=== PATIENT | male | born 1945 | race Caucasian/White ===

== ENCOUNTER 2016-08-03 07:33 | Outpatient (CLI) | payer MEDICARE, OTHER | END 2016-08-03 07:34 | disposition home or self-care (01) | DX: I82.409 Acute embolism and thrombosis of unspecified deep veins of unspecified lower extremity (principal); I48.91 Unspecified atrial fibrillation ==

== ENCOUNTER 2017-01-12 08:07 | Outpatient (CLI) | payer MEDICARE, OTHER | END 2017-01-12 08:08 | disposition home or self-care (01) | LOC: LAB.F 08:07 | PROVIDERS: ATTEND Internal Medicine | DX: I82.409 Acute embolism and thrombosis of unspecified deep veins of unspecified lower extremity (principal) | CPT/HCPCS: 85610 ==

== ENCOUNTER 2017-01-24 09:15 | Outpatient (CLI) | payer MEDICARE, OTHER | END 2017-01-24 09:16 | disposition home or self-care (01) | LOC: LAB.F 09:15 | PROVIDERS: ATTEND Internal Medicine Medical Oncology | DX: I82.409 Acute embolism and thrombosis of unspecified deep veins of unspecified lower extremity (principal) | CPT/HCPCS: 85610 ==

== ENCOUNTER 2017-02-12 08:42 | Outpatient (CLI) | payer MEDICARE, OTHER | END 2017-02-12 08:43 | disposition home or self-care (01) | LOC: LAB.F 08:42 | PROVIDERS: ATTEND Internal Medicine Medical Oncology | DX: I82.409 Acute embolism and thrombosis of unspecified deep veins of unspecified lower extremity (principal) | CPT/HCPCS: 85610 ==

== ENCOUNTER 2017-02-20 11:07 | Outpatient (CLI) | payer MEDICARE, OTHER | END 2017-02-20 11:08 | disposition home or self-care (01) | LOC: LAB.F 11:07 | PROVIDERS: ATTEND Internal Medicine | DX: I82.409 Acute embolism and thrombosis of unspecified deep veins of unspecified lower extremity (principal) | CPT/HCPCS: 85610 ==

== ENCOUNTER 2017-02-28 13:39 | Outpatient (CLI) | payer MEDICARE, OTHER | END 2017-02-28 13:40 | disposition home or self-care (01) | LOC: LAB.F 13:39 | PROVIDERS: ATTEND Pharmacist | DX: I82.409 Acute embolism and thrombosis of unspecified deep veins of unspecified lower extremity (principal); I48.91 Unspecified atrial fibrillation | CPT/HCPCS: 85610 ==

== ENCOUNTER 2017-03-13 10:44 | Outpatient (CLI) | payer MEDICARE, OTHER | END 2017-03-13 10:45 | disposition home or self-care (01) | LOC: LAB.F 10:44 | PROVIDERS: ATTEND Pharmacist | DX: I48.91 Unspecified atrial fibrillation (principal) | CPT/HCPCS: 85610 ==

== ENCOUNTER 2017-03-15 09:05 | Outpatient (CLI) | payer MEDICARE, OTHER | END 2017-03-15 09:06 | disposition home or self-care (01) | LOC: SC 09:05 | PROVIDERS: ATTEND Nurse Practitioner Family | DX: G47.33 Obstructive sleep apnea (adult) (pediatric) (principal) | CPT/HCPCS: 99214; G0463; 99212 ==

== ENCOUNTER 2017-04-18 08:54 | Outpatient (CLI) | payer MEDICARE, OTHER | END 2017-04-18 08:55 | disposition home or self-care (01) | LOC: SC 08:54 | PROVIDERS: ATTEND Nurse Practitioner Family | DX: G47.33 Obstructive sleep apnea (adult) (pediatric) (principal) | CPT/HCPCS: 99214; G0463; 99212 ==

== ENCOUNTER 2017-05-09 01:48 | Outpatient (CLI) | payer MEDICARE, OTHER | END 2017-05-09 01:49 | disposition critical access hospital (66) | LOC: EMS 01:48 | PROVIDERS: ATTEND Surgery | DX: M25.512 Pain in left shoulder (principal); W19.XXXA Unspecified fall, initial encounter; Y92.003 Bedroom of unspecified non-institutional (private) residence as the place of occurrence of the external cause | CPT/HCPCS: A0425; A0429 ==

== ENCOUNTER 2017-05-09 02:10 | Emergency (ER) | payer MEDICARE, OTHER ==
[2017-05-09 02:41] LABS: BASOPHILS # (AUTO) 0.1 10^3/uL (0.0-0.1); BASOPHILS % (AUTO) 0.6 %; EOSINOPHILS # (AUTO) 0.2 10^3/uL (0.0-0.7); EOSINOPHILS % (AUTO) 1.7 %; HCT - HEMATOCRIT 35.8 % (42.0-52.0); HGB - HEMOGLOBIN 12.5 g/dL (14.0-18.0); LYMPHOCYTES # (AUTO) 1.2 10^3/uL (1.5-3.5); LYMPHOCYTES % (AUTO) 11.2 %; MEAN CORPUSCULAR HEMOGLOBIN 33.1 pg (27.0-31.0); MEAN CORPUSCULAR HGB CONC 35.1 g/dL (32.0-36.0); MEAN CORPUSCULAR VOLUME 94.4 fL (80.0-94.0); MEAN PLATELET VOLUME 6.6 fL (7.4-11.4); MONOCYTES # (AUTO) 0.8 10^3/uL (0.0-1.0); MONOCYTES % (AUTO) 7.1 %; NEUTROPHILS # (AUTO) 8.5 10^3/uL (1.5-6.6); NEUTROPHILS % (AUTO) 79.4 %; RED BLOOD COUNT 3.79 10^6/uL (4.70-6.10); RED CELL DISTRIBUTION WIDTH 14.3 % (12.0-15.0); UNCORRECTED WHITE BLOOD COUNT 10.8 x10^3/uL; WHITE BLOOD COUNT 10.8 x10^3/uL (4.8-10.8)
[2017-05-09 02:47] LABS: INR 2.1 (0.8-1.2); PT - PROTHROMBIN TIME 22.7 secs (9.9-12.6)
[2017-05-09 02:51] LABS: ALBUMIN/GLOBULIN RATIO 1.1 (1.0-2.2); BILIRUBIN,TOTAL 0.4 mg/dL (0.2-1.0); CALCIUM 8.8 mg/dL (8.5-10.3); CREATININE 1.1 mg/dL (0.6-1.2); POTASSIUM 3.4 mmol/L (3.5-5.0)
[2017-05-09 02:56] LABS: PARTIAL THROMBOPLASTIN TIME 25.5 secs (24.9-33.3)
--- NOTE | 2017-05-09 03:16 | XRAY Preliminary Report ---
Exam: XR SHOULDER 3 VIEW LT IMPRESSION: 1. Osteopenia. No acute abnormality seen. [facility] SITE ID: [id number]
--- NOTE | 2017-05-09 03:19 | XRAY Report ---
EXAM: LEFT SHOULDER RADIOGRAPHY EXAM DATE: 05/09/2017 03:08 AM. CLINICAL HISTORY: Fall, left shoulder pain. COMPARISON: None. TECHNIQUE: 3 views. FINDINGS: Bones: Osteopenia. No acute fracture seen. Joints: No dislocation. Joint spaces are relatively well preserved for age. Soft tissues: Left-sided power port is noted. IMPRESSION: 1. Osteopenia. No acute abnormality seen. [facility] Referring Provider Line: [phone] SITE ID: [id number]
--- NOTE | 2017-05-09 03:29 | CT Preliminary Report ---
Exam: CT HEAD W/O IMPRESSION: Generalized age-related cortical atrophic changes without evidence of acute intracranial abnormality. [facility] SITE ID: [id number]
--- NOTE | 2017-05-09 03:34 | CT Report ---
EXAM: CT HEAD EXAM DATE: 05/09/2017 03:07 AM. CLINICAL HISTORY: Altered mental status, fall, on anticoagulation. COMPARISON: Brain CT obtained at [facility] on 03/07/2017. TECHNIQUE: Multiaxial CT images were obtained from the foramen magnum to the vertex. IV contrast: Non e. Reformats: Coronal. In accordance with CT protocol optimization, one or more of the following dose reduction techniques w ere utilized for this exam: automated exposure control, adjustment of mA and/or KV based on patient s ize, or use of iterative reconstructive technique. FINDINGS: Parenchyma: No intraparenchymal hemorrhage. No evidence of mass, midline shift, or CT findings of acu te infarction. Valladares-white differentiation is distinct. Mild diffuse chronic microangiopathic white ma tter changes are evident. Extraaxial Spaces: Normal for age. No subdural or epidural collections identified. Ventricles: The ventricles and cortical sulci are moderately enlarged, consistent with age-related ti ssue loss. Sinuses and orbits: Imaged paranasal sinuses, orbits, and mastoids show no significant abnormality. Bones: No evidence of fracture or calvarial defect. IMPRESSION: Generalized age-related cortical atrophic changes without evidence of acute intracranial abnormality. [facility] Referring Provider Line: [phone] SITE ID: [id number]
--- NOTE | 2017-05-09 03:40 | ED Physician Documentation ---
PD HPI Fall - Stated complaint Stated Complaint: FALL - Chief complaint Chief Complaint: Trauma Ext - History obtained from History obtained from: Patient, Family, EMS - History of Present Illness Mechanism of injury: Lost balance Fall distance: Standing position Where injury occurred: Home Timing - onset: How many hours ago (1) Injury(ies) location: Left Uppper Extremity Quality of pain: Aching Associated symptoms: Amnesia Similar symptoms before: Work up / diagnostics, Treatment Recently seen: Not recently seen - Additional information Additional information: Patient is a 71 year old male with a history of dementia, heart failure, Afib and peripheral neuropathy, post toe amputation who is presenting to the emergency department after falling. According to , patient was in bed then she heard a crash and immediately heard the patient yell out. She called ems who found the patient wedged on the floor, near a door and furniture. states that he was acting more confused and the patient is on plavix and coumadin so they brought the patient in for evaluation. Review of Systems Unable to obtain: Dementia PD PAST MEDICAL HISTORY - Past Medical History Past Medical History: Yes Cardiovascular: Hypertension, Atrial fibrillation, Other Neuro: Dementia Endocrine/Autoimmune: Type 2 diabetes GI: None : Benign prostate hypertrophy HEENT: None Other Past Medical History: decreased blood flow to BLE, Hx colorectal CA - Past Surgical History Past Surgical History: Yes General: Colonoscopy, Other Ortho: Other Cardiovascular: Angioplasty - Present Medications Home Medications: Ambulatory Orders Medication Instructions Recorded Confirmed Metoprolol Succinate [Toprol Xl] 100 mg PO DAILY 11/01/12 04/03/17 Warfarin Sodium [Coumadin] 5 mg PO DAILY 11/01/12 04/03/17 Acetaminophen [Pain Relief] 500 mg PO Q4HR PRN 05/02/13 04/03/17 Simvastatin 80 mg PO DAILY 05/02/13 04/03/17 Cholecalciferol (Vitamin D3) 1,000 unit PO DAILY 04/03/17 04/03/17 [Vitamin D3] Digoxin 125 mcg PO DAILY 04/03/17 04/03/17 Furosemide [Lasix] 20 mg PO BID 04/03/17 04/03/17 Losartan [Cozaar] 25 mg PO DAILY 04/03/17 04/03/17 Magnesium Oxide [Mag-Oxide 400 mg PO TID 04/03/17 04/03/17 Magnesium] QUEtiapine [SEROquel] 25 mg PO QPM 04/03/17 04/03/17 Spironolactone 25 mg PO DAILY 04/03/17 04/03/17 Tamsulosin [Flomax] 0.4 mg PO DAILY 04/03/17 04/03/17 - Allergies Allergies/Adverse Reactions: Allergies Allergy/AdvReac Type Severity Reaction Status Date / Time levofloxacin Allergy Unknown Verified 05/09/17 02:58 - Social History Does the pt smoke?: No Smoking Status: Never smoker Does the pt drink ETOH?: No Does the pt have substance abuse?: No - Immunizations Immunizations are current?: Yes - POLST Patient has POLST: No PD ED PE NORMAL - Vitals Vital signs reviewed: Yes - General General: No acute distress, Well developed/nourished - HEENT HEENT: Atraumatic, PERRL, Moist mucous membranes, Pharynx benign - Neck Neck: Supple, no meningeal sign - Respiratory Respiratory: No respiratory distress, Clear bilaterally - Abdomen Abdomen: Soft, Non distended - Back Back: No spinal TTP - Derm Derm: Normal color, Warm and dry, No rash - Extremities Extremities: No deformity - Neuro Eye Opening: Spontaneous Motor: Obeys Commands Verbal: Confused GCS Score: 14 - Psych Psych: Normal mood PD ED PE EXPANDED - Cardiac Cardiac: Irregularly irregular - Respiratory Respiratory: Clear to ausultation marla - Derm Derm: Normal color. No: Rash, Bruising, Laceration(s) - Extremities Extremities: Left shoulder (mild tenderness to palpation) - Neuro Neuro: Confused, Normal motor Results - Vitals Vitals: Vital Signs - 24 hr 05/09/17 05/09/17 05/09/17 02:15 03:13 03:55 Temperature 36.3 C L Heart Rate 89 83 96 Respiratory 18 18 18 Rate Blood Pressure 146/84 H 160/91 H 156/74 H O2 Saturation 100 100 100 Oxygen O2 Source Room air - EKG (time done) 0221 Rate: Rate (enter#) (83) Rhythm: Atrial fibrillation Beyer: Normal Other comments: Other comments (occasional pvc) Compare to prior EKG: Old EKG unavailable - Labs Labs: Laboratory Tests 05/09/17 05/09/17 05/09/17 02:34 02:34 02:34 WBC 10.8 RBC 3.79 L Hgb 12.5 L Hct 35.8 L MCV 94.4 H MCH 33.1 H MCHC 35.1 RDW 14.3 Plt Count 269 MPV 6.6 L Neut # 8.5 H Lymph # 1.2 L Caswell # 0.8 Eos # 0.2 Baso # 0.1 Absolute Nucleated RBC 0.00 Nucleated RBC % 0.0 PT 22.7 H INR 2.1 H APTT 25.5 Sodium 138 Potassium 3.4 L Chloride 101 Carbon Dioxide 28 Anion Gap 9.0 BUN 26 H Creatinine 1.1 Estimated GFR (MDRD) 66 L Glucose 108 H Calcium 8.8 Total Bilirubin 0.4 AST 22 ALT 27 Alkaline Phosphatase 83 Troponin I Total Protein 7.0 Albumin 3.6 Globulin 3.4 Albumin/Globulin Ratio 1.1 Lipase 68 H 05/09/17 02:34 WBC RBC Hgb Hct MCV MCH MCHC RDW Plt Count MPV Neut # Lymph # Caswell # Eos # Baso # Absolute Nucleated RBC Nucleated RBC % PT INR APTT Sodium Potassium Chloride Carbon Dioxide Anion Gap BUN Creatinine Estimated GFR (MDRD) Glucose Calcium Total Bilirubin AST ALT Alkaline Phosphatase Troponin I < 0.04 Total Protein Albumin Globulin Albumin/Globulin Ratio Lipase - Rads (name of study) ct head Radiology: Final report received (no acute intracranial pathology) PD MEDICAL DECISION MAKING - ED course Complexity details: reviewed old records, reviewed results, re-evaluated patient , considered differential, d/w patient, d/w family ED course: Patient was seen and examined at bedside. ekg was performed and showed a-fib. When patient's arrived the story became more clear that there was no syncope and was likely a mechanical fall. Patient's imaging was within normal limits. While patient is a high risk for negative outcomes, patient had appropriate follow up and care. and Patient required no further inpatient work up and was stable for discharge with close, outpatient follow up. Departure - Departure Disposition: 01 Home, Self Care Clinical Impression: Fall Condition: Good Instructions: Falls Risks Prevent Follow-Up: Antoinette Hurst [facility] [Primary Care Provider] - Comments: Your diagnostics today were within normal limits. there is no acute intracranial pathology. the a fib is persistent and there were recurrent pvcs on the monitor so it is important that you follow up with your heart doctor as they might want to move up the pace-maker. You might have more aches and pains over the next few days and can take tylenol as needed for pain. You can return to the emergency department at any time for new, worsening or uncontrollable symptoms. Discharge Date/Time: 05/09/17 04:00
[2017-05-09 04:00] VITALS: BP 156/74
== END 2017-05-09 04:00 | disposition home or self-care (01) ==
LOC: EDUNIT# → ED 02:10 → SUPCPDRO 02:10 → ED 04:00
DX: R41.0 Disorientation, unspecified (principal); F03.90 Unspecified dementia, unspecified severity, without behavioral disturbance, psychotic disturbance, mood disturbance, and anxiety; M25.512 Pain in left shoulder; W06.XXXA Fall from bed, initial encounter; I48.1 Persistent atrial fibrillation; I49.3 Ventricular premature depolarization; E11.42 Type 2 diabetes mellitus with diabetic polyneuropathy; I10 Essential (primary) hypertension; Z91.81 History of falling; Z79.01 Long term (current) use of anticoagulants; Z79.02 Long term (current) use of antithrombotics/antiplatelets; Z89.429 Acquired absence of other toe(s), unspecified side
CPT/HCPCS: 36415; 70450; 80053; 83690; 84484; 85025; 85610; 85730; 93005; 99284

== ENCOUNTER 2017-05-09 16:20 | Outpatient (CLI) | payer MEDICARE, OTHER | END 2017-05-09 16:21 | disposition short-term general hospital (02) | LOC: EMS 16:20 | PROVIDERS: ATTEND Surgery | DX: R07.9 Chest pain, unspecified (principal) | CPT/HCPCS: A0425; A0427 ==

== ENCOUNTER 2017-06-13 08:00 | Outpatient (CLI) | payer MEDICARE, OTHER ==
[2017-06-13 13:26] LABS: BASOPHILS % (AUTO) 0.6 %; EOSINOPHILS # (AUTO) 0.1 10^3/uL (0.0-0.7); EOSINOPHILS % (AUTO) 1.3 %; HCT - HEMATOCRIT 35.4 % (42.0-52.0); HGB - HEMOGLOBIN 12.3 g/dL (14.0-18.0); LYMPHOCYTES # (AUTO) 0.9 10^3/uL (1.5-3.5); LYMPHOCYTES % (AUTO) 10.8 %; MEAN CORPUSCULAR HEMOGLOBIN 33.3 pg (27.0-31.0); MEAN CORPUSCULAR HGB CONC 34.7 g/dL (32.0-36.0); MEAN PLATELET VOLUME 7.5 fL (7.4-11.4); MONOCYTES # (AUTO) 0.8 10^3/uL (0.0-1.0); MONOCYTES % (AUTO) 9.6 %; NEUTROPHILS # (AUTO) 6.7 10^3/uL (1.5-6.6); NEUTROPHILS % (AUTO) 77.7 %; RED BLOOD COUNT 3.69 10^6/uL (4.70-6.10); RED CELL DISTRIBUTION WIDTH 15.1 % (12.0-15.0); UNCORRECTED WHITE BLOOD COUNT 8.7 x10^3/uL; WHITE BLOOD COUNT 8.7 x10^3/uL (4.8-10.8)
[2017-06-13 13:33] LABS: INR 1.6 (0.8-1.2)
[2017-06-13 13:40] LABS: CREATININE 0.9 mg/dL (0.6-1.2)
== END 2017-06-13 23:59 ==
LOC: LAB.R 08:00
PROVIDERS: ATTEND Internal Medicine Infectious Disease
DX: T87.89 Other complications of amputation stump (principal); I50.22 Chronic systolic (congestive) heart failure; I70.209 Unspecified atherosclerosis of native arteries of extremities, unspecified extremity; Z51.81 Encounter for therapeutic drug level monitoring
CPT/HCPCS: 82565; 84460; 85025; 85610; 85651

== ENCOUNTER 2017-06-19 08:00 | Outpatient (CLI) | payer MEDICARE, OTHER ==
[2017-06-19 19:27] LABS: CREATININE 0.9 mg/dL (0.6-1.2); GFR - MDRD 83 (>89)
[2017-06-19 22:48] LABS: BASOPHILS # (AUTO) 0.1 10^3/uL (0.0-0.1); EOSINOPHILS # (AUTO) 0.2 10^3/uL (0.0-0.7); EOSINOPHILS % (AUTO) 1.9 %; HCT - HEMATOCRIT 39.5 % (42.0-52.0); HGB - HEMOGLOBIN 13.1 g/dL (14.0-18.0); LYMPHOCYTES # (AUTO) 1.1 10^3/uL (1.5-3.5); LYMPHOCYTES % (AUTO) 11.1 %; MEAN CORPUSCULAR HEMOGLOBIN 32.5 pg (27.0-31.0); MEAN CORPUSCULAR HGB CONC 33.3 g/dL (32.0-36.0); MEAN CORPUSCULAR VOLUME 97.7 fL (80.0-94.0); MEAN PLATELET VOLUME 8.2 fL (7.4-11.4); MONOCYTES # (AUTO) 0.8 10^3/uL (0.0-1.0); MONOCYTES % (AUTO) 8.2 %; NEUTROPHILS # (AUTO) 7.4 10^3/uL (1.5-6.6); NEUTROPHILS % (AUTO) 77.8 %; RED BLOOD COUNT 4.04 10^6/uL (4.70-6.10); RED CELL DISTRIBUTION WIDTH 14.6 % (12.0-15.0); UNCORRECTED WHITE BLOOD COUNT 9.5 x10^3/uL; WHITE BLOOD COUNT 9.5 x10^3/uL (4.8-10.8)
== END 2017-06-19 08:01 | disposition home or self-care (01) ==
LOC: LAB.R 08:00
PROVIDERS: ATTEND Internal Medicine Infectious Disease
DX: T87.89 Other complications of amputation stump (principal); I50.22 Chronic systolic (congestive) heart failure; I70.209 Unspecified atherosclerosis of native arteries of extremities, unspecified extremity; Z51.81 Encounter for therapeutic drug level monitoring
CPT/HCPCS: 82565; 84460; 85025; 85651

== ENCOUNTER 2017-06-28 08:00 | Outpatient (CLI) | payer MEDICARE, OTHER ==
[2017-06-28 11:24] LABS: BASOPHILS % (AUTO) 0.5 %; EOSINOPHILS # (AUTO) 0.2 10^3/uL (0.0-0.7); EOSINOPHILS % (AUTO) 2.6 %; HGB - HEMOGLOBIN 12.8 g/dL (14.0-18.0); LYMPHOCYTES # (AUTO) 1.1 10^3/uL (1.5-3.5); MEAN CORPUSCULAR HEMOGLOBIN 33.6 pg (27.0-31.0); MEAN PLATELET VOLUME 7.2 fL (7.4-11.4); MONOCYTES # (AUTO) 0.7 10^3/uL (0.0-1.0); MONOCYTES % (AUTO) 7.4 %; NEUTROPHILS # (AUTO) 6.8 10^3/uL (1.5-6.6); NEUTROPHILS % (AUTO) 77.5 %; PLT - PLATELET COUNT 200 10^3/uL (130-450); RED BLOOD COUNT 3.82 10^6/uL (4.70-6.10); RED CELL DISTRIBUTION WIDTH 14.8 % (12.0-15.0); WHITE BLOOD COUNT 8.8 x10^3/uL (4.8-10.8)
[2017-06-28 11:30] LABS: PT - PROTHROMBIN TIME 51.7 secs (9.9-12.6)
[2017-06-28 11:37] LABS: ALT ALANINE AMINOTRANSFERASE < 10 IU/L (10-60); GFR - MDRD 74 (>89)
[2017-06-28 11:42] LABS: INR 4.9 (0.8-1.2)
== END 2017-06-28 08:01 ==
LOC: LAB.R 08:00
PROVIDERS: ATTEND Student in an Organized Health Care Education/Training Program
DX: Z79.01 Long term (current) use of anticoagulants (principal); T87.89 Other complications of amputation stump; I50.22 Chronic systolic (congestive) heart failure; I70.209 Unspecified atherosclerosis of native arteries of extremities, unspecified extremity
CPT/HCPCS: 82565; 84460; 85025; 85610; 85651

== ENCOUNTER 2017-07-05 10:30 | Outpatient (CLI) | payer MEDICARE, OTHER | END 2017-07-05 10:31 | disposition home or self-care (01) | LOC: LAB.F 10:30 | PROVIDERS: ATTEND Pharmacist | DX: I48.91 Unspecified atrial fibrillation (principal) | CPT/HCPCS: 85610 ==

== ENCOUNTER 2017-08-07 08:00 | Outpatient (CLI) | payer MEDICARE, OTHER ==
[2017-08-07 17:54] LABS: INR 4.3 (0.8-1.2); PT - PROTHROMBIN TIME 46.4 secs (9.9-12.6)
== END 2017-08-07 08:01 | disposition home or self-care (01) ==
LOC: LAB.R 08:00
PROVIDERS: ATTEND Internal Medicine
DX: Z79.01 Long term (current) use of anticoagulants (principal)
CPT/HCPCS: 85610

== ENCOUNTER 2017-09-04 08:00 | Outpatient (CLI) | payer MEDICARE, OTHER ==
[2017-09-04 14:46] LABS: INR 4.7 (0.8-1.2)
== END 2017-09-04 08:01 ==
LOC: LAB.R 08:00
PROVIDERS: ATTEND Internal Medicine
DX: I48.91 Unspecified atrial fibrillation (principal)
CPT/HCPCS: 85610

== ENCOUNTER 2017-09-04 17:42 | Outpatient (CLI) | payer MEDICARE, OTHER | END 2017-09-04 17:43 | disposition critical access hospital (66) | LOC: EMS 17:42 | PROVIDERS: ATTEND Surgery | DX: S01.81XA Laceration without foreign body of other part of head, initial encounter (principal); W18.39XA Other fall on same level, initial encounter; W22.8XXA Striking against or struck by other objects, initial encounter; Y92.003 Bedroom of unspecified non-institutional (private) residence as the place of occurrence of the external cause | CPT/HCPCS: A0425; A0429 ==

== ENCOUNTER 2017-09-04 18:04 | Emergency (ER) | payer MEDICARE, OTHER ==
[2017-09-04] MEDS ORDERED: LIDOCAINE 1%-EPI 1:100000 20 ML MDV SUBQ STA (18:28)
--- NOTE | 2017-09-04 18:28 | ED Physician Documentation ---
PD HPI HEAD INJURY - Stated complaint Stated Complaint: GLF - Chief complaint Chief Complaint: Trauma Hd/Nk - History obtained from History obtained from: Patient - History of Present Illness Mechanism of head injury: Fell (he was getting out of wheelchair and fell forward while bent, and struck top of head on edge of dresser. No LOC and is acting okay. 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 No: Intoxicated Similar symptoms before: Has not had sx before Recently seen: Not recently seen Review of Systems Constitutional: denies: Fever, Chills Eyes: denies: Loss of vision, Decreased vision Nose: denies: Rhinorrhea / runny nose, Congestion Throat: denies: Sore throat Cardiac: denies: Chest pain / pressure Respiratory: denies: Cough GI: denies: Abdominal Pain, Nausea, Vomiting, Diarrhea : denies: Dysuria, Frequency Neurologic: reports: Headache. denies: Focal weakness, Numbness, Near syncope Endocrine: reports: Easy bruising / bleeding PD PAST MEDICAL HISTORY - Past Medical History Cardiovascular: Hypertension, Atrial fibrillation, Other Neuro: Dementia Endocrine/Autoimmune: Type 2 diabetes GI: None : Benign prostate hypertrophy HEENT: None - Past Surgical History Past Surgical History: Yes General: Colonoscopy, Other Ortho: Other Cardiovascular: Angioplasty - Present Medications Home Medications: Ambulatory Orders Medication Instructions Recorded Confirmed Metoprolol Succinate [Toprol Xl] 100 mg PO DAILY 11/01/12 04/03/17 Warfarin Sodium [Coumadin] 5 mg PO DAILY 11/01/12 04/03/17 Acetaminophen [Pain Relief] 500 mg PO Q4HR PRN 05/02/13 04/03/17 Simvastatin 80 mg PO DAILY 05/02/13 04/03/17 Cholecalciferol (Vitamin D3) 1,000 unit PO DAILY 04/03/17 04/03/17 [Vitamin D3] Digoxin 125 mcg PO DAILY 04/03/17 04/03/17 Furosemide [Lasix] 20 mg PO BID 04/03/17 04/03/17 Losartan [Cozaar] 25 mg PO DAILY 04/03/17 04/03/17 Magnesium Oxide [Mag-Oxide 400 mg PO TID 04/03/17 04/03/17 Magnesium] QUEtiapine [SEROquel] 25 mg PO QPM 04/03/17 04/03/17 Spironolactone 25 mg PO DAILY 04/03/17 04/03/17 Tamsulosin [Flomax] 0.4 mg PO DAILY 04/03/17 04/03/17 Tramadol HCl 50 mg PO Q6H PRN #20 tablet 09/04/17 - Allergies Allergies/Adverse Reactions: Allergies Allergy/AdvReac Type Severity Reaction Status Date / Time levofloxacin Allergy Unknown Verified 05/09/17 02:58 - Social History Does the pt smoke?: No Smoking Status: Never smoker Does the pt drink ETOH?: No Does the pt have substance abuse?: No - Immunizations Immunizations are current?: Yes - POLST Patient has POLST: No PD ED PE NORMAL - Vitals Vital signs reviewed: Yes - General General: Alert and oriented X 3, Well developed/nourished - HEENT HEENT: PERRL, EOMI, Other (top of scalp with 3 cm lac with clean edges, but the patient's wound is bleeding still so closed with sutures for hemostasis as well. 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 No: Contaminated Anesthesia: Lidocaine 1% with epi Skin layer closure: Nylon, Running, Size #-0 - enter number (4) Other: Patient tolerated well, No complications, Neurovascular intact, Dressing applied, Tetanus UTD Complexity: Simple PD MEDICAL DECISION MAKING - ED course Complexity details: reviewed results, considered differential, d/w patient Departure - Departure Disposition: 01 Home, Self Care Clinical Impression: Anticoagulant long-term use Accidental fall Qualifiers: Encounter type: initial encounter Qualified Code(s): W19.XXXA - Unspecified fall, initial encounter Scalp laceration Qualifiers: Encounter type: initial encounter Qualified Code(s): S01.01XA - Laceration without foreign body of scalp, initial encounter Condition: Stable Record reviewed to determine appropriate education?: Yes Instructions: ED Laceration Scalp Stitch Or Stap Follow-Up: Antoinette Hurst R[facility] [Primary Care Provider] - Prescriptions: Tramadol HCl 50 mg PO Q6H PRN #20 tablet PRN Reason: Pain Comments: It is okay to wash and shower. Clean off the wound twice a day with soap and water, or peroxide and water. Apply some antibiotic ointment to it to keep it moist. Also to watch for signs of infection such as purulence, redness or increasing pain. Return to your primary care or the ER at the specified time for suture removal. Suture removal 8-10 days. Hold your Coumadin tonight. Follow-up with your primary care in the next couple of days for INR recheck. Tylenol or tramadol if needed for pains. Discharge Date/Time: 09/04/17 20:25
[2017-09-04] MEDS ORDERED: ACETAMINOPHEN 325 MG TABLET PO STA (18:51)
[2017-09-04] MEDS ORDERED: traMADol 50 MG TABLET PO STA (18:51)
--- NOTE | 2017-09-04 19:47 | CT Report ---
EXAM: CT HEAD EXAM DATE: 09/04/2017 07:25 PM. CLINICAL HISTORY: Head injury, on coumadin. COMPARISON: 04/29/2017. TECHNIQUE: Multiaxial CT images were obtained from the foramen magnum to the vertex. Reformats: Coron al. IV contrast: None. In accordance with CT protocol optimization, one or more of the following dose reduction techniques w ere utilized for this exam: automated exposure control, adjustment of mA and/or KV based on patient s ize, or use of iterative reconstructive technique. FINDINGS: Parenchyma: No intraparenchymal hemorrhage. No evidence of mass, midline shift, or CT findings of acu te infarction. Valladares-white differentiation is distinct. Diffuse chronic microangiopathic white matter changes are evident, similar to prior exam. Extraaxial Spaces: Normal for age. No subdural or epidural collections identified. Ventricles: The ventricles and cortical sulci are enlarged, consistent with age-related tissue loss. Sinuses and orbits: Imaged paranasal sinuses, orbits, and mastoids show no significant abnormality. Bones: No evidence of fracture or calvarial defect. Other: Right frontal scalp contusion and laceration noted. IMPRESSION: Generalized age-related cortical atrophic changes without evidence of acute intracranial abnormality. [facility] Referring Provider Line: [phone] SITE ID: [id number]
[2017-09-04] MEDS ORDERED: BACITRACIN OINT TOP ONE (20:20)
[2017-09-04 20:27] VITALS: BP 128/73
== END 2017-09-04 20:25 | disposition home or self-care (01) ==
LOC: EDUNIT# → ED 18:04
DX: S01.01XA Laceration without foreign body of scalp, initial encounter (principal); W01.0XXA Fall on same level from slipping, tripping and stumbling without subsequent striking against object, initial encounter; I48.91 Unspecified atrial fibrillation; Z79.01 Long term (current) use of anticoagulants; I10 Essential (primary) hypertension; F03.90 Unspecified dementia, unspecified severity, without behavioral disturbance, psychotic disturbance, mood disturbance, and anxiety; E11.9 Type 2 diabetes mellitus without complications; N40.0 Benign prostatic hyperplasia without lower urinary tract symptoms
CPT/HCPCS: 12002; 70450; 85610; 99283; A9270

== ENCOUNTER 2017-09-21 11:23 | Outpatient (CLI) | payer MEDICARE, OTHER | END 2017-09-21 11:24 | disposition home or self-care (01) | LOC: LAB.F 11:23 | PROVIDERS: ATTEND Pharmacist | DX: I48.91 Unspecified atrial fibrillation (principal) | CPT/HCPCS: 85610 ==

== ENCOUNTER 2017-10-05 10:54 | Outpatient (CLI) | payer MEDICARE, OTHER | END 2017-10-05 10:55 | disposition home or self-care (01) | LOC: LAB.F 10:54 | PROVIDERS: ATTEND Pharmacist | DX: I48.91 Unspecified atrial fibrillation (principal) | CPT/HCPCS: 85610 ==

== ENCOUNTER 2017-10-11 08:00 | Outpatient (CLI) | payer MEDICARE, OTHER | END 2017-10-11 08:01 | disposition home or self-care (01) | LOC: LAB.F 08:00 | PROVIDERS: ATTEND Pharmacist | DX: I48.91 Unspecified atrial fibrillation (principal) | CPT/HCPCS: 85610 ==

== ENCOUNTER 2017-11-15 09:00 | Outpatient (CLI) | payer MEDICARE, OTHER | END 2017-11-15 09:01 | disposition home or self-care (01) | LOC: LAB.F 09:00 | PROVIDERS: ATTEND Pharmacist | DX: I48.91 Unspecified atrial fibrillation (principal) | CPT/HCPCS: 85610 ==

== ENCOUNTER 2018-01-09 06:13 | Emergency (ER) | payer MEDICARE, OTHER ==
--- NOTE | 2018-01-09 06:25 | ED Physician Documentation ---
PD HPI Fall - Stated complaint Stated Complaint: GLF/HEAD LAC - History obtained from History obtained from: Patient, Family - History of Present Illness Fall distance: Sitting position Where injury occurred: Home Timing - onset: Today Injury(ies) location: Head, Right Hand Associated symptoms: No: LOC Similar symptoms before: Work up / diagnostics, Treatment Recently seen: Emergency Dept Review of Systems Ten Systems: 10 systems reviewed and negative Skin: reports: Laceration (s) Musculoskeletal: reports: Extremity pain, Joint pain, Extremity swelling Neurologic: denies: Generalized weakness, Focal weakness PD PAST MEDICAL HISTORY - Past Medical History Cardiovascular: Hypertension, Atrial fibrillation, Other Endocrine/Autoimmune: Type 2 diabetes GI: None : Benign prostate hypertrophy HEENT: None - Past Surgical History Past Surgical History: Yes General: Colonoscopy, Other Ortho: Other Cardiovascular: Angioplasty - Present Medications Home Medications: Ambulatory Orders Medication Instructions Recorded Confirmed Metoprolol Succinate [Toprol Xl] 100 mg PO DAILY 11/01/12 01/09/18 Warfarin Sodium [Coumadin] 5 mg PO DAILY 11/01/12 01/09/18 Acetaminophen [Pain Relief] 500 mg PO Q4HR PRN 05/02/13 01/09/18 Cholecalciferol (Vitamin D3) 1,000 unit PO DAILY 04/03/17 01/09/18 [Vitamin D3] Losartan [Cozaar] 25 mg PO DAILY 04/03/17 01/09/18 Magnesium Oxide [Mag-Oxide 400 mg PO TID 04/03/17 01/09/18 Magnesium] QUEtiapine [SEROquel] 25 mg PO QPM 04/03/17 01/09/18 Spironolactone 25 mg PO DAILY 04/03/17 01/09/18 Tramadol HCl 50 mg PO Q6H PRN #20 tablet 09/04/17 01/09/18 - Allergies Allergies/Adverse Reactions: Allergies Allergy/AdvReac Type Severity Reaction Status Date / Time levofloxacin Allergy Unknown Verified 01/09/18 06:22 - Social History Does the pt smoke?: No Smoking Status: Never smoker Does the pt drink ETOH?: No Does the pt have substance abuse?: No - Immunizations Immunizations are current?: Yes - POLST Patient has POLST: No PD ED PE NORMAL - Vitals Vital signs reviewed: Yes - General General: Alert and oriented X 3 - Neck Neck: No bony TTP - Cardiac Cardiac: RRR - Respiratory Respiratory: No respiratory distress - Neuro Neuro: Alert and oriented X 3, No motor deficit, Normal speech Eye Opening: Spontaneous Motor: Obeys Commands Verbal: Oriented GCS Score: 15 - Psych Psych: Normal mood PD ED PE EXPANDED - HEENT HEENT: Head injury (laceration on patient's head, already repaired) - Extremities Extremities: Right hand (dislocation of the third digit on the right hand) Results - Vitals Vitals: Vital Signs - 24 hr 01/09/18 01/09/18 06:20 07:26 Temperature 97.8 C H Heart Rate 74 70 Respiratory 20 18 Rate Blood Pressure 145/76 H 129/72 O2 Saturation 95 96 Oxygen O2 Source Room air - Rads (name of study) ct head Radiology: Final report received (no acute intracranial pathology) hand x-ray Radiology: Final report received (possible small avulsion fracture) Procedures - Reduction Body part reduced: Right, Finger Fracture or dislocation: Dislocation Reduction aftercare: NV intact, Xray confirms reduction, Alignment improved, Splint applied, Patient tolerated well PD MEDICAL DECISION MAKING - ED course Complexity details: reviewed old records, reviewed results, re-evaluated patient , considered differential, d/w patient, d/w family ED course: Patient was seen and examined at beside. patient's finger was reduced and placed in a splint. Patient was sent for imaging. when patient returned the results were reviewed. Patient had no acute intracranial pathology. patient's wound was already dressed and he was up to date on his tetanus. Patient required no further inpatient work up and was stable for discharge with outpatient follow up. - Sepsis Event Vital Signs: Vital Signs - 24 hr 01/09/18 01/09/18 06:20 07:26 Temperature 97.8 C H Heart Rate 74 70 Respiratory 20 18 Rate Blood Pressure 145/76 H 129/72 O2 Saturation 95 96 Oxygen O2 Source Room air Departure - Departure Disposition: 01 Home, Self Care Clinical Impression: Accidental fall, Scalp laceration Condition: Good Instructions: ED Head Injury Closed Follow-Up: Gera Ball MD [Primary Care Provider] - Comments: Your head ct today was within normal limits. there are steri strips placed on the wound. you should keep the wound clean and dry. you can take motrin or tylenol as needed for pain. there might be a small avulsion fracture in your finger. you should ice your wound at least 4 times a day. you may return to the emergency department at any time for new worsening symptoms. Discharge Date/Time: 01/09/18 07:41
--- NOTE | 2018-01-09 07:08 | CT Report ---
Procedure Date: 01/09/2018 Accession Number: [id number] / [id number] Procedure: CT - Head W/O CPT Code: FULL RESULT: EXAM: CT HEAD EXAM DATE: 01/09/2018 06:46 AM. CLINICAL HISTORY: Fall on coumadin. COMPARISON: 09/04/2017. TECHNIQUE: Multiaxial CT images were obtained from the foramen magnum to the vertex. Reformats: Coronal. IV contrast: None. In accordance with CT protocol optimization, one or more of the following dose reduction techniques were utilized for this exam: automated exposure control, adjustment of mA and/or KV based on patient size, or use of iterative reconstructive technique. FINDINGS: Small subtle focus of edema in the fat of the upper left lateral scalp. Nearly resolved changes of scalp injury anteriorly were present previously. No acute paranasal sinus or mastoid fluid opacity. No displaced skull fracture. Stable aged CT appearance of the brain, no evidence for acute intracranial abnormality such as hemorrhage or stroke. IMPRESSION: No CT evidence for acute intracranial abnormality. [facility]
--- NOTE | 2018-01-09 07:26 | XRAY Report ---
Procedure Date: 01/09/2018 Accession Number: [id number] / [id number] Procedure: XR - Finger(s) RT CPT Code: FULL RESULT: EXAM: RIGHT THIRD DIGIT RADIOGRAPHY EXAM DATE: 01/09/2018 06:51 AM. CLINICAL HISTORY: Third digit deformity. COMPARISON: None. TECHNIQUE: 3 views. FINDINGS: Bones: The lungs are diffusely demineralized. There is a 2 x 3 mm osseous fragment adjacent to the ulnar aspect of the head of the proximal phalanx of the third digit. Fragment appears corticated, suggestive of a subacute or chronic fracture fragment. The remainder visualized bones appear intact. Joints: Normal. No subluxation. 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 Soft Tissues: There is soft tissue swelling centered around the proximal interphalangeal joint of the third digit. IMPRESSION: Small osseous fragment adjacent to the head of the proximal phalanx of the third digit. The fragment appears corticated, which is suggestive of a subacute or chronic fracture. However, soft tissue swelling centered around the proximal interphalangeal joint may indicate a more acute injury. [facility]
[2018-01-09 07:29] VITALS: BP 129/72
== END 2018-01-09 07:41 | disposition home or self-care (01) ==
LOC: ED 06:13
DX: S01.01XA Laceration without foreign body of scalp, initial encounter (principal); S63.254A Unspecified dislocation of right ring finger, initial encounter; W18.30XA Fall on same level, unspecified, initial encounter; Y92.009 Unspecified place in unspecified non-institutional (private) residence as the place of occurrence of the external cause; I10 Essential (primary) hypertension; E11.9 Type 2 diabetes mellitus without complications; I48.91 Unspecified atrial fibrillation; Z79.01 Long term (current) use of anticoagulants
CPT/HCPCS: 26670; 70450; 73140; 99283

== ENCOUNTER 2018-03-15 13:37 | Outpatient (CLI) | payer MEDICARE, OTHER | END 2018-03-15 13:38 | disposition home or self-care (01) | LOC: LAB.F 13:37 | PROVIDERS: ATTEND Pharmacist | DX: I48.91 Unspecified atrial fibrillation (principal) | CPT/HCPCS: 85610 ==

== ENCOUNTER 2018-04-15 08:09 | Outpatient (CLI) | payer MEDICARE, OTHER | END 2018-04-15 08:10 | disposition home or self-care (01) | LOC: LAB.F 08:09 | PROVIDERS: ATTEND Pharmacist | DX: I48.91 Unspecified atrial fibrillation (principal) | CPT/HCPCS: 85610 ==

== ENCOUNTER 2018-04-29 09:15 | Outpatient (CLI) | payer MEDICARE, OTHER | END 2018-04-29 09:16 | disposition home or self-care (01) | LOC: LAB.F 09:15 | PROVIDERS: ATTEND Pharmacist | DX: I48.91 Unspecified atrial fibrillation (principal) | CPT/HCPCS: 85610 ==

== ENCOUNTER 2019-01-15 14:46 | Outpatient (CLI) | payer MEDICARE, OTHER | END 2019-01-15 14:47 | disposition home or self-care (01) | LOC: LAB.S 14:46 | PROVIDERS: ATTEND Pharmacist | DX: I48.91 Unspecified atrial fibrillation (principal) | CPT/HCPCS: 85610 ==

== ENCOUNTER 2019-03-24 14:37 | Outpatient (CLI) | payer MEDICARE, OTHER | END 2019-03-24 14:38 | disposition home or self-care (01) | LOC: LAB.S 14:37 | PROVIDERS: ATTEND Pharmacist Oncology | DX: I48.91 Unspecified atrial fibrillation (principal) | CPT/HCPCS: 85610 ==

== ENCOUNTER 2019-04-04 10:03 | Outpatient (CLI) | payer MEDICARE, OTHER | END 2019-04-04 10:04 | disposition home or self-care (01) | LOC: LAB.S 10:03 | PROVIDERS: ATTEND Pharmacist Oncology | DX: I48.91 Unspecified atrial fibrillation (principal) | CPT/HCPCS: 85610 ==

== ENCOUNTER 2019-11-28 07:00 | Outpatient (CLI) | payer MEDICARE, OTHER ==
[2019-11-28 10:08] LABS: INR 1.7 (0.8-1.2); PT - PROTHROMBIN TIME 18.6 secs (9.9-12.6)
== END 2019-11-28 23:59 | disposition home or self-care (01) ==
LOC: LAB.R 07:00
PROVIDERS: ATTEND Pharmacist Oncology
DX: I48.91 Unspecified atrial fibrillation (principal)
CPT/HCPCS: 85610

== ENCOUNTER 2020-10-14 09:07 | Outpatient (CLI) | payer MEDICARE, OTHER | END 2020-10-14 09:08 | disposition home or self-care (01) | LOC: LAB 09:07 | PROVIDERS: ATTEND Pharmacist | DX: Z79.01 Long term (current) use of anticoagulants (principal) | CPT/HCPCS: 36415; 85610 ==

== ENCOUNTER 2021-02-04 15:04 | Outpatient (CLI) | payer MEDICARE, OTHER ==
[2021-02-04 15:36] LABS: INR 2.6 (0.8-1.2)
[2021-02-04 16:08] LABS: BASOPHILS % (AUTO) 0.4 %; EOSINOPHILS # (AUTO) 0.1 10^3/uL (0.0-0.7); EOSINOPHILS % (AUTO) 1.3 %; HCT - HEMATOCRIT 41.2 % (42.0-52.0); HGB - HEMOGLOBIN 13.8 g/dL (14.0-18.0); LYMPHOCYTES % (AUTO) 10.4 %; MEAN CORPUSCULAR HEMOGLOBIN 32.6 pg (27.0-31.0); MEAN CORPUSCULAR HGB CONC 33.5 g/dL (32.0-36.0); MEAN CORPUSCULAR VOLUME 97.4 fL (80.0-94.0); MEAN PLATELET VOLUME 8.8 fL (7.4-11.4); MONOCYTES # (AUTO) 0.8 10^3/uL (0.0-1.0); MONOCYTES % (AUTO) 7.6 %; NEUTROPHILS # (AUTO) 7.8 10^3/uL (1.5-6.6); PLT - PLATELET COUNT 245 10^3/uL (130-450); RED BLOOD COUNT 4.23 10^6/uL (4.70-6.10); WHITE BLOOD COUNT 9.8 x10^3/uL (4.8-10.8)
== END 2021-02-04 15:05 | disposition home or self-care (01) ==
LOC: LAB 15:04
PROVIDERS: ATTEND Physician Assistant
DX: Z45.02 Encounter for adjustment and management of automatic implantable cardiac defibrillator (principal); Z79.01 Long term (current) use of anticoagulants
CPT/HCPCS: 36415; 85025; 85610; 87040

== ENCOUNTER 2021-02-21 22:23 | Outpatient (CLI) | payer MEDICARE, OTHER | END 2021-02-21 22:24 | disposition critical access hospital (66) | LOC: EMS 22:23 | DX: M79.601 Pain in right arm (principal) | CPT/HCPCS: A0425; A0429 ==

== ENCOUNTER 2021-02-21 22:45 | Emergency (ER) | payer MEDICARE, OTHER ==
--- NOTE | 2021-02-21 22:55 | ED Physician Documentation ---
PD HPI UPPER EXT INJURY - Stated complaint Stated Complaint: RT ARM PX - History obtained from History obtained from: Patient, EMS - History of Present Illness Location: Right, Shoulder Type of injury: No: Fall, Twist Timing - onset: How many months ago (1) Timing - details: Abrupt onset, Still present (slowly resolving right shoulder pain and bruising. Was doing reasonably better. Hurt more again this evening without injury. Had aching right shoulder pain, and associated with nausea/sweaty/lightheaded after taking Tylenol and Tramadol.) Contributing factors: Anticoagulated Recently seen: Other ( stated deonte has had xray and MRI of shoulder without apparent injury. Has slowly improving hematoma/bruising in area.) Review of Systems Constitutional: denies: Fever Nose: denies: Rhinorrhea / runny nose Throat: denies: Sore throat Cardiac: denies: Chest pain / pressure, Pedal edema Respiratory: denies: Cough GI: reports: Nausea, Vomiting. denies: Diarrhea Neurologic: reports: Generalized weakness (briefly this evening, with near syncopal episode lasting few minutes, then improving.), Near syncope PD PAST MEDICAL HISTORY - Past Medical History Cardiovascular: Hypertension, Atrial fibrillation, Other Endocrine/Autoimmune: Type 2 diabetes GI: None : Benign prostate hypertrophy HEENT: None - Past Surgical History Past Surgical History: Yes General: Colonoscopy, Other Ortho: Other Cardiovascular: Angioplasty - Present Medications Home Medications: Ambulatory Orders Medication Instructions Recorded Confirmed Metoprolol Succinate [Toprol Xl] 50 mg PO DAILY 11/01/12 11/28/19 Warfarin Sodium [Coumadin] 5 mg PO DAILY 11/01/12 11/28/19 Acetaminophen [Pain Relief] 500 mg PO Q4HR PRN 05/02/13 11/28/19 Cholecalciferol (Vitamin D3) 1,000 unit PO DAILY 04/03/17 11/28/19 [Vitamin D3] Losartan [Cozaar] 25 mg PO DAILY 04/03/17 11/28/19 QUEtiapine [SEROquel] 25 mg PO QPM 04/03/17 11/28/19 Spironolactone 25 mg PO DAILY 04/03/17 11/28/19 Tramadol HCl 50 mg PO Q6H PRN #20 tablet 09/04/17 11/28/19 - Allergies Allergies/Adverse Reactions: Allergies Allergy/AdvReac Type Severity Reaction Status Date / Time levofloxacin Allergy Unknown Verified 02/21/21 22:52 - Social History Does the pt smoke?: No Smoking Status: Never smoker Does the pt drink ETOH?: No Does the pt have substance abuse?: No - Immunizations Immunizations are current?: Yes - POLST Patient has POLST: No PD ED PE NORMAL - Vitals Vital signs reviewed: Yes - HEENT HEENT: Atraumatic - Neck Neck: Supple, no meningeal sign, No adenopathy - Cardiac Cardiac: RRR, No murmur - Respiratory Respiratory: Clear bilaterally - Derm Derm: Normal color, Warm and dry - Extremities Extremities: Other (no edema nor swelling in right arm. There is yellow to purple bruising anterior right shoulder/upper arm. Good color and pulses distally. ) - Neuro Neuro: No motor deficit, No sensory deficit Results - Vitals Vitals: Vital Signs - 24 hr 02/21/21 02/21/21 02/21/21 22:52 22:56 23:50 Temperature 36.5 C 36.5 C Heart Rate 68 68 72 Respiratory 16 16 18 Rate Blood Pressure 198/86 H 198/86 H 191/79 H O2 Saturation 96 96 95 02/22/21 02/22/21 01:00 01:15 Temperature 36.6 C Heart Rate 71 71 Respiratory 18 18 Rate Blood Pressure 200/99 H 200/99 H O2 Saturation 96 96 Oxygen O2 Source Room air - EKG (time done) 23:18 Rate: Rate (enter#) (73) Rhythm: Paced (with ventricular response) Ischemia: Normal ST segments. No: ST elevation c/w ischemia, ST depression - Labs Labs: Laboratory Tests 02/21/21 02/21/21 02/21/21 23:33 23:33 23:33 WBC 12.9 H RBC 4.03 L Hgb 13.3 L Hct 39.2 L MCV 97.3 H MCH 33.0 H MCHC 33.9 RDW 12.5 Plt Count 259 MPV 8.6 Neut # (Auto) 10.8 H Lymph # (Auto) 0.8 L [place] # (Auto) 1.0 Eos # (Auto) 0.2 Baso # (Auto) 0.0 Absolute Nucleated RBC 0.00 Nucleated RBC % 0.0 PT 24.7 H INR 2.2 H Sodium 138 Potassium 4.0 Chloride 100 L Carbon Dioxide 26 Anion Gap 12.0 BUN 15 Creatinine 0.8 Estimated GFR (MDRD) 94 Glucose 128 H Calcium 8.8 Total Bilirubin 0.8 AST 16 ALT 16 Alkaline Phosphatase 83 Troponin I High Sens Total Protein 7.2 Albumin 3.6 Globulin 3.6 Albumin/Globulin Ratio 1.0 Lipase 42 Acetaminophen < 10 L 02/21/21 23:33 WBC RBC Hgb Hct MCV MCH MCHC RDW Plt Count MPV Neut # (Auto) Lymph # (Auto) [place] # (Auto) Eos # (Auto) Baso # (Auto) Absolute Nucleated RBC Nucleated RBC % PT INR Sodium Potassium Chloride Carbon Dioxide Anion Gap BUN Creatinine Estimated GFR (MDRD) Glucose Calcium Total Bilirubin AST ALT Alkaline Phosphatase Troponin I High Sens 8.5 Total Protein Albumin Globulin Albumin/Globulin Ratio Lipase Acetaminophen - Rads (name of study) chest xray Radiology: Prelim report reviewed (Mild cardiomegaly with some vascular congestion), See rad report PD MEDICAL DECISION MAKING - ED course Complexity details: reviewed results (EKG is paced but no ischemic appearing changes. Troponin is negative. Chest x-ray is clear. Seems likely a vasovagal response to nausea presumed medication induced. No signs of DC. He has had bruising of the right shoulder but no swelling in the arm, no edema. Does not seem DVT.), considered differential (has had right shoulder pain with bruising for few weeks, resolving. Had diferent shoulder pain this evening, took some TYlenol ( not sure how many and pt not sure) and a Tramadol. He flet nausea, sweaty and nearly fainted shortly after. Concerned for heart related. ), d/w patient, d/w family () Departure - Departure Disposition: 01 Home, Self Care Clinical Impression: Vasovagal near syncope, Elevated blood pressure reading Condition: Stable Record reviewed to determine appropriate education?: Yes Follow-Up: Gera Ball MD [Primary Care Provider] - Comments: Usual medications. Your EKG, chest x-ray, blood tests are normal here without any signs of heart attack or heart failure. Your Coumadin level is 2.2. Your troponin level is normal. Your acetaminophen level is low so no apparent excess dose. Your blood pressure reading was elevated here but since you typically are normal, we would not really want to work at bringing it down too quickly. We gave you an extra dose of your metoprolol. Otherwise continue usual medications. Follow-up with your family doctor if recurrent episodes. Discharge Date/Time: 02/22/21 01:15
[2021-02-21 23:40] LABS: BASOPHILS % (AUTO) 0.3 %; EOSINOPHILS # (AUTO) 0.2 10^3/uL (0.0-0.7); EOSINOPHILS % (AUTO) 1.2 %; HCT - HEMATOCRIT 39.2 % (42.0-52.0); HGB - HEMOGLOBIN 13.3 g/dL (14.0-18.0); LYMPHOCYTES # (AUTO) 0.8 10^3/uL (1.5-3.5); LYMPHOCYTES % (AUTO) 6.5 %; MEAN CORPUSCULAR HGB CONC 33.9 g/dL (32.0-36.0); MEAN CORPUSCULAR VOLUME 97.3 fL (80.0-94.0); MEAN PLATELET VOLUME 8.6 fL (7.4-11.4); MONOCYTES % (AUTO) 7.9 %; NEUTROPHILS # (AUTO) 10.8 10^3/uL (1.5-6.6); NEUTROPHILS % (AUTO) 83.8 %; PLT - PLATELET COUNT 259 10^3/uL (130-450); RED BLOOD COUNT 4.03 10^6/uL (4.70-6.10); RED CELL DISTRIBUTION WIDTH 12.5 % (12.0-15.0); WHITE BLOOD COUNT 12.9 x10^3/uL (4.8-10.8)
[2021-02-21 23:46] LABS: INR 2.2 (0.8-1.2); PT - PROTHROMBIN TIME 24.7 secs (9.9-12.6)
[2021-02-21 23:51] LABS: ACETAMINOPHEN < 10 ug/mL (10-30); ALBUMIN 3.6 g/dL (3.2-5.5); ALKALINE PHOSPHATASE 83 IU/L (42-121); ALT ALANINE AMINOTRANSFERASE 16 IU/L (10-60); AST ASPARTATE AMINOTRANSFERASE 16 IU/L (10-42); BILIRUBIN,TOTAL 0.8 mg/dL (0.2-1.0); BUN - BLOOD UREA NITROGEN 15 mg/dL (6-20); CALCIUM 8.8 mg/dL (8.5-10.3); CARBON DIOXIDE - CO2 26 mmol/L (21-32); CHLORIDE 100 mmol/L (101-111); CREATININE 0.8 mg/dL (0.6-1.2); GFR - MDRD 94 (>89); GLUCOSE 128 mg/dL (70-100); LIPASE 42 U/L (22-51); SODIUM 138 mmol/L (135-145); TOTAL PROTEIN 7.2 g/dL (6.7-8.2)
[2021-02-22] MEDS ORDERED: METOPROLOL TARTRATE 50 MG TABLET PO STA (00:55)
[2021-02-22 01:15] VITALS: BP 200/99
--- NOTE | 2021-02-22 08:17 | XRAY Report ---
PROCEDURE: Chest 1 View X-Ray INDICATIONS: Chest Pain TECHNIQUE: One view of the chest was acquired. COMPARISON: None FINDINGS: Surgical changes and devices: None. Lungs and pleura: No pleural effusions or pneumothorax. Lungs are clear. Mediastinum: Mediastinal contours appear normal. Heart size is mildly enlarged. Bones and chest wall: No suspicious bony lesions. Overlying soft tissues appear unremarkable. Righ t chest wall pacer is seen with intact leads. Left chest wall port is also seen. IMPRESSION: Mild cardiomegaly with mild/early CHF. Reviewed by: Zack Lynch on 02/22/2021 8:15 AM PDT Approved by: Zack Lynch on 02/22/2021 8:15 AM PDT Station ID: [id number]
== END 2021-02-22 01:15 | disposition home or self-care (01) ==
LOC: EDUNIT# → SUPCPDRO 22:45 → ED 22:45
DX: R55 Syncope and collapse (principal); M25.511 Pain in right shoulder; I11.0 Hypertensive heart disease with heart failure; I50.9 Heart failure, unspecified; Z79.01 Long term (current) use of anticoagulants; Z95.0 Presence of cardiac pacemaker; E11.9 Type 2 diabetes mellitus without complications
CPT/HCPCS: 36415; 71045; 80053; 80307; 83690; 84484; 85025; 85610; 93005; 99284; A9270

== ENCOUNTER 2022-08-11 01:14 | Outpatient (CLI) | payer MEDICARE, OTHER | END 2022-08-11 01:15 | disposition critical access hospital (66) | LOC: EMS 01:14 | DX: R11.2 Nausea with vomiting, unspecified (principal); W18.39XA Other fall on same level, initial encounter; Y92.009 Unspecified place in unspecified non-institutional (private) residence as the place of occurrence of the external cause; Z79.01 Long term (current) use of anticoagulants; Z79.02 Long term (current) use of antithrombotics/antiplatelets; Z72.89 Other problems related to lifestyle | CPT/HCPCS: A0425; A0429 ==

== ENCOUNTER 2022-08-11 01:36 | Emergency (ER) | payer MEDICARE, OTHER ==
--- NOTE | 2022-08-11 02:03 | ED Physician Documentation ---
History of Present Illness - Stated complaint Stated Complaint: GLF - ETOH - Chief complaint Chief Complaint: Trauma Ext - History obtained from History obtained from: Patient, EMS - Additonal information Additional information: The patient is brought to the emergency department by EMS for chief complaint of ground-level fall on blood thinners. The patient lives at home with his and apparently drank half a bottle of gin tonight. This is more than he would normally drink. The patient states he went to get up from the couch but just felt weak and unsteady and so he sank to the floor. He states he did not hit his head he is quite certain and has no complaints whatsoever. Medics were called because the patient's heard a loud thump on the floor and came up and found the patient and became concerned. She is apparently a retired nurse and wanted the patient to come in for evaluation because of the fact that he has dementia and she does not think that he is remembering the incident correctly. Medics deny any issues in route. They state that the told them that the patient seems like his normal self, just a little intoxicated. PD PAST MEDICAL HISTORY - Past Medical History Past Medical History: Yes Cardiovascular: Hypertension, High cholesterol, Atrial fibrillation, Other Neuro: Dementia Endocrine/Autoimmune: Type 2 diabetes GI: None : Benign prostate hypertrophy HEENT: None - Past Surgical History Past Surgical History: Yes General: Colonoscopy, Other Ortho: Other Cardiovascular: Angioplasty - Present Medications Home Medications: Ambulatory Orders Medication Instructions Recorded Confirmed Metoprolol Succinate [Toprol Xl] 50 mg PO DAILY 11/01/12 08/11/22 Warfarin Sodium [Coumadin] 5 mg PO DAILY 11/01/12 08/11/22 Acetaminophen [Pain Relief] 500 mg PO Q4HR PRN 05/02/13 08/11/22 Cholecalciferol (Vitamin D3) 1,000 unit PO DAILY 04/03/17 08/11/22 [Vitamin D3] Losartan [Cozaar] 50 mg PO DAILY 04/03/17 08/11/22 QUEtiapine [SEROquel] 25 mg PO QPM 04/03/17 08/11/22 Spironolactone 25 mg PO DAILY 04/03/17 08/11/22 Tramadol HCl 50 mg PO Q6H PRN #20 tablet 09/04/17 08/11/22 Clopidogrel Bisulfate [Plavix] 75 mg PO DAILY 08/11/22 08/11/22 Donepezil HCl [Donepezil HCl Odt] 5 mg PO QPM 08/11/22 08/11/22 Memantine HCl [Namenda Xr] 14 mg PO DAILY 08/11/22 08/11/22 - Allergies Allergies/Adverse Reactions: Allergies Allergy/AdvReac Type Severity Reaction Status Date / Time levofloxacin Allergy Unknown Verified 08/11/22 01:50 - Social History Does the pt smoke?: No Smoking Status: Never smoker Does the pt drink ETOH?: No Does the pt have substance abuse?: No - Immunizations Immunizations are current?: Yes - POLST Patient has POLST: No PD ED PE NORMAL - Vitals Vital signs reviewed: Yes - General General: No acute distress, Well developed/nourished, Other (The patient is alert and appropriate. He responds briskly and articulates well.) - HEENT HEENT: Atraumatic (No evidence of trauma whatsoever.), PERRL, EOMI, Moist mucous membranes - Neck Neck: Supple, no meningeal sign, No bony TTP - Cardiac Cardiac: RRR, No murmur - Respiratory Respiratory: No respiratory distress, Clear bilaterally - Abdomen Abdomen: Soft, Non tender, Non distended - Derm Derm: Normal color, Warm and dry, No rash - Extremities Extremities: No deformity, No edema - Neuro Neuro: Alert and oriented X 3, account administrator 2-12 intact, No motor deficit, No sensory deficit, Normal speech - Psych Psych: Normal mood, Normal affect Results - Vitals Vitals: Vital Signs - 24 hr 08/11/22 08/11/22 01:36 02:22 Temperature 97.8 C H Heart Rate 74 70 Respiratory 16 17 Rate Blood Pressure 160/83 H 177/80 H O2 Saturation 97 93 Oxygen O2 Source Room air - Rads (name of study) CT head Radiology: Final report received, See rad report (Negative for acute findings) PD Medical Decision Making - ED course Complexity details: reviewed results, re-evaluated patient, considered differential, d/w patient ED course: Was extremely well-appearing in the emergency department. Unfortunately, his was not present and given that her story differed quite a bit from his according to the medics, and considering that he is not only intoxicated but has some history of dementia, I decided to go ahead and get a scan of his head, even though at this point, I think the likelihood of an intracranial hemorrhage is fairly low. This was done and negative. The patient's did come to get him. We discussed the usual indications for return and follow-up. Departure - Departure Disposition: 01 Home, Self Care Clinical Impression: Alcohol intoxication Qualifiers: Complication of substance-induced condition: uncomplicated Qualified Code(s): F10.920 - Alcohol use, unspecified with intoxication, uncomplicated Fall Qualifiers: Encounter type: initial encounter Qualified Code(s): W19.XXXA - Unspecified fall, initial encounter Condition: Stable Instructions: ED Alcohol Intoxication Comments: You had no evidence of trauma and no complaints. Because of the reported discrepancy between your 's observations and yours, we went ahead and got the CT scan to be sure that there is no bleeding in your brain. Your CT looks good tonight. Please do not drink so muchnot only is it very stressful on the body, but it also put you in danger of falling and incurring a more serious injury. Discharge Date/Time: 08/11/22 03:04
[2022-08-11] MEDS ORDERED: ONDANSETRON ODT 4 MG TABLET TL STA (02:22)
[2022-08-11 02:26] VITALS: BP 177/80
--- NOTE | 2022-08-11 08:00 | CT Report ---
PROCEDURE: HEAD WO INDICATIONS: fall/anticoagulation TECHNIQUE: Noncontrast 4.5 mm thick angled axial sections acquired from the foramen magnum to the vertex. For r adiation dose reduction, the following was used: automated exposure control, adjustment of mA and/or kV according to patient size. COMPARISON: 01/09/2018 FINDINGS: Image quality: Excellent. CSF spaces: Basal cisterns are patent. No extra-axial fluid collections. Ventricles are stable in size and shape. Brain: There is moderate cerebral volume loss for age with resultant ventricular and sulcal prominen ce. There are periventricular and deep white matter chronic small vessel ischemic changes. Atheroscle rotic calcifications are noted in the intracranial segments of the bilateral internal carotid arterie s. No midline shift. No intracranial masses or hemorrhage. Valladares-white matter interface is normal. Skull and face: Calvarium and visualized facial bones are intact, without suspicious lesions. Sinuses: Complete opacification of the left maxillary sinus. No thickening of the sinus wall. Other p aranasal sinuses and mastoids are clear. IMPRESSION: 1. CT head without acute intracranial abnormalities or acute calvarial fractures. 2. Stable appearance of age-related senescent changes and sequela of chronic small vessel ischemic di sease. 3. Left maxillary sinus disease. No significant discrepancy with initial interpretation by overnight radiologist. Reviewed by: Denis Zimmerman MD on 08/11/2022 7:59 AM PST Approved by: Denis Zimmerman MD on 08/11/2022 7:59 AM PST Station ID: [id number]
== END 2022-08-11 03:04 | disposition home or self-care (01) ==
LOC: EDUNIT# → ED 01:36
DX: F10.129 Alcohol abuse with intoxication, unspecified (principal); F03.90 Unspecified dementia, unspecified severity, without behavioral disturbance, psychotic disturbance, mood disturbance, and anxiety; Z79.01 Long term (current) use of anticoagulants
CPT/HCPCS: 70450; 99282; 99284; Q0162

== ENCOUNTER 2023-07-29 17:52 | Outpatient (CLI) | payer MEDICARE, OTHER | END 2023-07-29 17:53 | disposition EMS.NT | LOC: EMS 17:52 | DX: Z03.89 Encounter for observation for other suspected diseases and conditions ruled out (principal) ==

== ENCOUNTER 2023-08-13 23:48 | Outpatient (CLI) | payer MEDICARE, OTHER | END 2023-08-13 23:49 | disposition EMS.NT | LOC: EMS 23:48 | DX: Z03.89 Encounter for observation for other suspected diseases and conditions ruled out (principal) ==

== ENCOUNTER 2023-09-05 00:28 | Outpatient (CLI) | payer MEDICARE, OTHER | END 2023-09-05 23:59 | disposition critical access hospital (66) | LOC: EMS 00:28 | DX: R41.82 Altered mental status, unspecified (principal); R45.1 Restlessness and agitation; R46.89 Other symptoms and signs involving appearance and behavior | CPT/HCPCS: A0425; A0429 ==

== ENCOUNTER 2023-09-05 00:52 | Emergency (ER) | payer MEDICARE, OTHER ==
[2023-09-05] MEDS: DROPERIDOL 5 MG/2 ML VIAL IVP STA (01:35)
[2023-09-05] MEDS: SODIUM CHLORIDE 0.9% 1,000 ML IV STA ×2 (01:35→03:02)
[2023-09-05 01:37] LABS: BASOPHILS % (AUTO) 0.2 %; EOSINOPHILS % (AUTO) 0.2 %; HCT - HEMATOCRIT 41.5 % (42.0-52.0); HGB - HEMOGLOBIN 13.6 g/dL (14.0-18.0); LYMPHOCYTES # (AUTO) 0.5 10^3/uL (1.5-3.5); LYMPHOCYTES % (AUTO) 2.9 %; MEAN CORPUSCULAR HEMOGLOBIN 31.3 pg (27.0-31.0); MEAN CORPUSCULAR HGB CONC 32.8 g/dL (32.0-36.0); MEAN CORPUSCULAR VOLUME 95.4 fL (80.0-94.0); MEAN PLATELET VOLUME 8.7 fL (7.4-11.4); MONOCYTES # (AUTO) 0.8 10^3/uL (0.0-1.0); MONOCYTES % (AUTO) 5.1 %; NEUTROPHILS # (AUTO) 15.1 10^3/uL (1.5-6.6); NEUTROPHILS % (AUTO) 91.3 %; PLT - PLATELET COUNT 224 10^3/uL (130-450); RED BLOOD COUNT 4.35 10^6/uL (4.70-6.10); RED CELL DISTRIBUTION WIDTH 12.7 % (12.0-15.0); WHITE BLOOD COUNT 16.6 x10^3/uL (4.8-10.8)
[2023-09-05 01:51] LABS: MAGNESIUM 1.4 mg/dL (1.7-2.3)
[2023-09-05 01:57] LABS: ALBUMIN 3.7 g/dL (3.2-5.5); ALBUMIN/GLOBULIN RATIO 1.2 (1.0-2.2); BILIRUBIN,TOTAL 0.8 mg/dL (0.2-1.0); CREATININE 0.8 mg/dL (0.6-1.3); TOTAL PROTEIN 6.7 g/dL (6.4-8.9)
--- NOTE | 2023-09-05 02:07 | XRAY Report ---
PROCEDURE: Chest 1V INDICATIONS: chest pain TECHNIQUE: One view of the chest was acquired. COMPARISON: Chest radiograph 02/21/2021. FINDINGS: Surgical changes and devices: A cardiac pacemaker is seen with pulse generator in the right chest. L eft-sided Port-A-Cath is seen with catheter tip in the superior cavoatrial junction. Lungs and pleura: Diffuse bilateral interstitial prominence. No focal consolidation. No pleural effu mary kate or pneumothorax. Mediastinum: Cardiac silhouette is mildly enlarged. Bones and chest wall: No suspicious bony lesions. Overlying soft tissues appear unremarkable. IMPRESSION: Cardiomegaly mild bilateral interstitial prominence are suspicious for mild edema. No focal consolida tion. Reviewed by: Jerod Street MD on 09/05/2023 2:05 AM PDT Approved by: Jerod Street MD on 09/05/2023 2:05 AM PDT Station ID: [id number]
--- NOTE | 2023-09-05 02:10 | CT Report ---
PROCEDURE: Head WO INDICATIONS: more agitated than baseline for few days TECHNIQUE: Noncontrast 4.5 mm thick angled axial sections acquired from the foramen magnum to the vertex. For r adiation dose reduction, the following was used: automated exposure control, adjustment of mA and/or kV according to patient size. COMPARISON: CT head 08/11/2022. FINDINGS: Image quality: Excellent. CSF spaces: Basal cisterns are patent. No extra-axial fluid collections. Ventricles and sulci are e nlarged. Brain: No midline shift. No intracranial masses or hemorrhage. Chondromalacia seen in the left fron nuria region with mild adjacent ex vacuo dilatation of the left lateral ventricle. Posteroinferior cere bellum is mildly obscured by artifact. Hypodensities in the subcortical and periventricular white mat ter are most commonly seen in setting of chronic microvascular ischemic changes. Age-related cerebral and cerebellar volume loss is seen. Intracranial vascular calcifications are noted in the internal c arotid arteries. Skull and face: Calvarium and visualized facial bones are intact, without suspicious lesions. Sinuses: There is opacification of the left maxillary sinus. The remaining visualized paranasal sinu ses and mastoids are clear. IMPRESSION: 1.No acute intracranial pathology. 2.Remote prior left frontal lobe infarct. Stable chronic microvascular ischemic changes and generaliz ed parenchymal volume loss. 3.Left maxillary paranasal sinus disease. Reviewed by: Jerod Street MD on 09/05/2023 2:09 AM PDT Approved by: Jerod Street MD on 09/05/2023 2:09 AM PDT Station ID: [id number]
[2023-09-05] MEDS: CLINDAMYCIN 600 MG/50 ML 50 ML IV ONE (02:22)
[2023-09-05] MEDS: ceFAZolin 1 GM VIAL IVP STA (02:22)
[2023-09-05] MEDS: MUPIROCIN 2% OINT 1 GM TOP STA (02:23)
[2023-09-05 02:26] LABS: BILIRUBIN,URINE SMALL (NEGATIVE); GLUCOSE, URINE (UA) NEGATIVE (NEGATIVE); KETONES,URINE (UA) TRACE mg/dL (NEGATIVE); LEUKOCYTE ESTERASE, URINE NEGATIVE (NEGATIVE); NITRITE,URINE NEGATIVE (NEGATIVE); OCCULT BLOOD,URINE SMALL (NEGATIVE); PH,URINE 5.5 PH (5.0-7.5); PROTEIN,URINE TRACE mg/dL (NEGATIVE); UROBILINOGEN,URINE 0.2 (NORMAL) E.U./dL (NORMAL)
[2023-09-05 02:35] LABS: CLARITY,URINE CLEAR (CLEAR)
--- NOTE | 2023-09-05 02:51 | ED Physician Documentation ---
PD HPI ALTERED MENTAL STATUS - Stated complaint Stated Complaint: GENERALIZED WEAKNESS - Chief complaint Chief Complaint: General - History obtained from History obtained from: Patient, Family ( info through EMS), EMS - History of Present Illness Timing - onset: How many days ago (Medics relay from that pt has had some agitation and confusion more than baseline dementia for the past couple of days, increased. Noted fever this night.) Timing - duration: Days (1-2) Timing - details: Gradual onset Quality / character: Confused, Agitated. No: Combative Associated symptoms: Fever (just this evening noted). No: Headache, Dyspnea, Cough, NVD Contributing factors: Anticoagulated. No: Diabetic, New medication Basline status: Confused (with poor memory and dementia), Walker Recently seen: Not recently seen Review of Systems Unable to obtain: Dementia (somewhat limited due to memory but aware of symptoms in the present.) Constitutional: reports: Fever Nose: denies: Rhinorrhea / runny nose, Congestion Throat: denies: Sore throat Cardiac: denies: Chest pain / pressure Respiratory: denies: Cough GI: denies: Abdominal Pain, Vomiting, Diarrhea Neurologic: denies: Headache, Head injury PD PAST MEDICAL HISTORY - Past Medical History Cardiovascular: Hypertension, High cholesterol, Atrial fibrillation, Other Neuro: Dementia Endocrine/Autoimmune: Type 2 diabetes GI: Other : Benign prostate hypertrophy HEENT: None Other Past Medical History: colon ca - Past Surgical History Past Surgical History: Yes General: Colonoscopy, Other Ortho: Other Cardiovascular: Angioplasty - Present Medications Home Medications: Ambulatory Orders Medication Instructions Recorded Confirmed Metoprolol Succinate [Toprol Xl] 50 mg PO DAILY 11/01/12 08/11/22 Warfarin Sodium [Coumadin] 5 mg PO DAILY 11/01/12 08/11/22 Acetaminophen [Pain Relief] 500 mg PO Q4HR PRN 05/02/13 08/11/22 Cholecalciferol (Vitamin D3) 1,000 unit PO DAILY 04/03/17 08/11/22 [Vitamin D3] Losartan [Cozaar] 50 mg PO DAILY 04/03/17 08/11/22 QUEtiapine [SEROquel] 25 mg PO QPM 04/03/17 08/11/22 Spironolactone 25 mg PO DAILY 04/03/17 08/11/22 Tramadol HCl 50 mg PO Q6H PRN #20 tablet 09/04/17 08/11/22 Clopidogrel Bisulfate [Plavix] 75 mg PO DAILY 08/11/22 08/11/22 Donepezil HCl [Donepezil HCl Odt] 5 mg PO QPM 08/11/22 08/11/22 Memantine HCl [Namenda Xr] 14 mg PO DAILY 08/11/22 08/11/22 Clindamycin [Cleocin] 300 mg PO TID 7 Days #20 cap 09/05/23 Mupirocin 2% Oint [Bactroban 2% 1 applic TOP TID #15 gm 09/05/23 Oint] cephALEXin [Keflex] 500 mg PO TID #20 cap 09/05/23 - Allergies Allergies/Adverse Reactions: Allergies Allergy/AdvReac Type Severity Reaction Status Date / Time levofloxacin Allergy Unknown Verified 09/05/23 01:04 - Social History Does the pt smoke?: No Smoking Status: Never smoker Does the pt drink ETOH?: No Does the pt have substance abuse?: No - Immunizations Immunizations are current?: Yes - POLST Patient has POLST: No PD ED PE NORMAL - Vitals Vital signs reviewed: Yes - General General: Alert and oriented X 3 (oriented in the present, person and place but not time, with less memory of recent events c/w reported dementia. ), No acute distress, Well developed/nourished - HEENT HEENT: Atraumatic, Pharynx benign - Neck Neck: Supple, no meningeal sign, No adenopathy - Cardiac Cardiac: RRR, No murmur - Respiratory Respiratory: No respiratory distress, Clear bilaterally - Abdomen Abdomen: Normal bowel sounds, Soft, Non tender, Non distended - Derm Derm: Normal color, Warm and dry - Extremities Extremities: No calf tenderness / cord, Other (right AKA with prosthesis noted. No redness around the stump. Left lower leg around ankle and foot with separate areas of superficial ulcerations with sourrounding redness and warmth but no drainage. ). No: No edema (mild pitting edema left lower leg) - Neuro Neuro: No motor deficit, No sensory deficit, Normal speech, Other (conversant and answers questions appropriately, with noted short and medium term memory deficit c/w dementia. ). No: Alert and oriented X 3 (person and place but not time. ) Eye Opening: Spontaneous Motor: Obeys Commands Verbal: Oriented GCS Score: 15 Results - Vitals Vitals: Vital Signs - 24 hr 09/05/23 00:59 Temperature 38.2 C H Heart Rate 74 Respiratory 20 Rate Blood Pressure 159/69 H O2 Saturation 96 Oxygen O2 Source Room air - Labs Labs: Laboratory Tests 09/05/23 09/05/23 09/05/23 01:32 01:32 02:06 WBC 16.6 H RBC 4.35 L Hgb 13.6 L Hct 41.5 L MCV 95.4 H MCH 31.3 H MCHC 32.8 RDW 12.7 Plt Count 224 MPV 8.7 Neut # (Auto) 15.1 H Lymph # (Auto) 0.5 L [place] # (Auto) 0.8 Eos # (Auto) 0.0 Baso # (Auto) 0.0 Absolute Nucleated RBC 0.00 Nucleated RBC % 0.0 Sodium 139 Potassium 4.0 Chloride 104 Carbon Dioxide 27 Anion Gap 8.0 BUN 15 Creatinine 0.8 Estimated GFR (MDRD) 94 Glucose 147 H Calcium 9.0 Magnesium 1.4 L Total Bilirubin 0.8 AST 12 ALT 10 Alkaline Phosphatase 93 Total Protein 6.7 Albumin 3.7 Globulin 3.0 Albumin/Globulin Ratio 1.2 Lipase 27 Vitamin B12 218 Urine Color YELLOW Urine Clarity CLEAR Urine pH 5.5 Ur Specific [place] >=1.030 H Urine Protein TRACE Urine Glucose (UA) NEGATIVE Urine Ketones TRACE Urine Occult Blood SMALL H Urine Nitrite NEGATIVE Urine Bilirubin SMALL H Urine Urobilinogen 0.2 (NORMAL) Ur Leukocyte Esterase NEGATIVE Urine RBC 0-5 Urine WBC 0-3 Ur Epithelial Cells MANY Transitional H Ur Squamous Epith Cells FEW Squamous Urine Bacteria Few Urine Mucus Marked Strands Ur Microscopic Review INDICATED Urine Culture Comments NOT INDICATED Nasal Adenovirus (PCR) Nasal B. parapertussis DNA (PCR) Nasal Coronavir 229E PCR Nasal Coronavir HKU1 PCR Nasal Coronavir NL63 PCR Nasal Coronavir OC43 PCR Nasal Enterovir/Rhinovir PCR Nasal Influenza B PCR Nasal Influenza A PCR Nasal Parainfluen 1 PCR Nasal Parainfluen 2 PCR Nasal Parainfluen 3 PCR Nasal Parainfluen 4 PCR Nasal RSV (PCR) Nasal B.pertussis DNA PCR Nasal C.pneumoniae (PCR) Popeye Human Metapneumo PCR Nasal M.pneumoniae (PCR) Nasal SARS-CoV-2 (PCR) 09/05/23 02:06 WBC RBC Hgb Hct MCV MCH MCHC RDW Plt Count MPV Neut # (Auto) Lymph # (Auto) [place] # (Auto) Eos # (Auto) Baso # (Auto) Absolute Nucleated RBC Nucleated RBC % Sodium Potassium Chloride Carbon Dioxide Anion Gap BUN Creatinine Estimated GFR (MDRD) Glucose Calcium Magnesium Total Bilirubin AST ALT Alkaline Phosphatase Total Protein Albumin Globulin Albumin/Globulin Ratio Lipase Vitamin B12 Urine Color Urine Clarity Urine pH Ur Specific [place] Urine Protein Urine Glucose (UA) Urine Ketones Urine Occult Blood Urine Nitrite Urine Bilirubin Urine Urobilinogen Ur Leukocyte Esterase Urine RBC Urine WBC Ur Epithelial Cells Ur Squamous Epith Cells Urine Bacteria Urine Mucus Ur Microscopic Review Urine Culture Comments Nasal Adenovirus (PCR) NOT DETECTED Nasal B. parapertussis DNA (PCR) NOT DETECTED Nasal Coronavir 229E PCR NOT DETECTED Nasal Coronavir HKU1 PCR NOT DETECTED Nasal Coronavir NL63 PCR NOT DETECTED Nasal Coronavir OC43 PCR NOT DETECTED Nasal Enterovir/Rhinovir PCR NOT DETECTED Nasal Influenza B PCR NOT DETECTED Nasal Influenza A PCR NOT DETECTED Nasal Parainfluen 1 PCR NOT DETECTED Nasal Parainfluen 2 PCR NOT DETECTED Nasal Parainfluen 3 PCR NOT DETECTED Nasal Parainfluen 4 PCR NOT DETECTED Nasal RSV (PCR) NOT DETECTED Nasal B.pertussis DNA PCR NOT DETECTED Nasal C.pneumoniae (PCR) NOT DETECTED Popeye Human Metapneumo PCR NOT DETECTED Nasal M.pneumoniae (PCR) NOT DETECTED Nasal SARS-CoV-2 (PCR) NOT DETECTED - Rads (name of study) head CT Relevant Findings:: Prelim report reviewed (on acute ICH nor findings), EMP independent interpretation of test chest xray Relevant Findings:: Prelim report reviewed (cardiomegaly and mild bilateral interstitial prominence concerning for mild CHF. ), EMP independent interpretation of test PD Medical Decision Making - ED course Complexity details: reviewed results (Elevated white count 16K. Neg viral panel, CXR, UA. chemistry without notable abnormal. Head CT without acute changes to account for AMS. He does have cellulitic appearance of superficial ulcerations on left foot and ankle. Presume this the source of infection. No drainage for getting culture.), considered differential (EMS called by for altered mental status, confused/agitated for 2 days. Pt with fever noted on arrival here. Presume infection causing AMS. eval with labs, UA, resp panel, head CT, CXR. ), d/w patient ED course: He was a bit boisterous at times but otherwise cooperative. Mainly verbal and no physical. Looking at his home medications, he had not received his nighttime Aricept or Seroquel. He was given these. He had been given some Inapsine earlier on first arrival to help with anxiousness and he also did complain of some mild nausea. This was hoped to have a dual effect. This did help reasonably. He subsequently was given his nighttime medications albeit not till approximately 2 a.m. Subsequently was resting and sleeping well. His did not answer the phone. At this point I presume will be boarding him until the morning to arrange a ride home. I did do not think he meets admission criteria. He was given Ancef and clindamycin here IV for the infections as well as mupirocin and dressings. I prescribed antibiotics for him and sent them to his usual pharmacy [facility]. I will print off a copy as well in case they want to go more local. Departure - Departure Disposition: Home, Self Care Clinical Impression: Chronic dementia, Fever Altered mental state Qualifiers: Altered mental status type: stupor Qualified Code(s): R40.1 - Stupor Cellulitis of lower extremity Qualifiers: Laterality: left Qualified Code(s): L03.116 - Cellulitis of left lower limb Condition: Stable Record reviewed to determine appropriate education?: Yes Instructions: ED Infec Skin Cellulitis Prescriptions: Mupirocin 2% Oint [Bactroban 2% Oint] 1 applic TOP TID #15 gm Clindamycin [Cleocin] 300 mg PO TID 7 Days #20 cap cephALEXin [Keflex] 500 mg PO TID #20 cap Comments: You did have a mild fever here as well as and a bit elevated white count suggesting an infection as likely the cause for your increased confusion or agitation. Your head CT did not show any acute abnormalities. Chest x-ray and urine test were without infection. Basic chemistry panel showed a slightly low magnesium but otherwise essentially normal. Your renal function is slightly impaired. Clinically the only identified source of infection is the skin around your ankle and foot with several superficial sores and redness and warmth in the skin surrounding. We would treat this with topical and oral antibiotics and see if it improves. I would also suggest some skin lotion on the dry skin areas to reduce irritated locations where the germs can find new spots. I also prescribed a antiseptic skin wash to use neck down if you take showers or at least the lower half of the body if it is a sponge wash etc. This will reduce the amount of germs on the skin as well. Recheck if not improving well over the next several days. Follow-up with your primary care. I sent your prescriptions to preferred pharmacy. Forms: PCP List
[2023-09-05 03:11] LABS: EPITHELIAL CELLS,UR MANY Transitional /HPF (<= Few); RBC,URINE 0-5 /HPF (0-5); SQUAMOUS EPITHELIAL CELL,UR FEW Squamous (<= Few); WBC,URINE 0-3 /HPF (0-3)
[2023-09-05 03:12] LABS: BACTERIA,URINE Few /HPF (None Seen); MUCUS,URINE Marked Strands
[2023-09-05 03:13] LABS: CORONAVIRUS 229E-RESP PCR NOT DETECTED; CORONAVIRUS HKU1-RESP PCR NOT DETECTED; CORONAVIRUS NL63-RESP PCR NOT DETECTED; CORONAVIRUS OC43-RESP PCR NOT DETECTED
[2023-09-05 03:14] LABS: B. PARAPERTUSSIS- RESP PCR PAN NOT DETECTED; B. PERTUSSIS- RESP PCR PANEL NOT DETECTED; C. PNEUMONIAE- RESP PCR PANEL NOT DETECTED; HUMAN METAPNEUMOVIRUS NOT DETECTED; INFLUENZA A- RESP PCR PANEL NOT DETECTED; INFLUENZA B - RESP PCR PANEL NOT DETECTED; M. PNEUMONIAE- RESP PCR PANEL NOT DETECTED; PARAINFLUENZA VIRUS 1 NOT DETECTED; PARAINFLUENZA VIRUS 2 NOT DETECTED; PARAINFLUENZA VIRUS 3 NOT DETECTED; PARAINFLUENZA VIRUS 4 NOT DETECTED; RHINOVIRUS/ENTEROVIRUS NOT DETECTED; RSV- RESP PCR PANEL NOT DETECTED; SARS-CoV-2 -RESP PCR PANEL NOT DETECTED
[2023-09-05] MEDS: ACETAMINOPHEN 325 MG TABLET PO STA (03:29)
[2023-09-05] MEDS: DONEPEZIL 5 MG TABLET PO STA (03:29)
[2023-09-05] MEDS: QUEtiapine 25 MG TABLET PO STA (03:29)
[2023-09-05 06:58] VITALS: BP 154/61; O2SAT 97
== END 2023-09-05 06:52 | disposition home or self-care (01) ==
LOC: EDUNIT# → ED 00:52
DX: L03.116 Cellulitis of left lower limb (principal); F03.90 Unspecified dementia, unspecified severity, without behavioral disturbance, psychotic disturbance, mood disturbance, and anxiety; R50.9 Fever, unspecified; I10 Essential (primary) hypertension; E78.00 Pure hypercholesterolemia, unspecified; I48.91 Unspecified atrial fibrillation; E11.9 Type 2 diabetes mellitus without complications; Z79.01 Long term (current) use of anticoagulants; Z79.899 Other long term (current) drug therapy; Z79.02 Long term (current) use of antithrombotics/antiplatelets
CPT/HCPCS: 36415; 70450; 71045; 80053; 81001; 82607; 83690; 83735; 84425; 85025; 87633; 96365; 96375; 99284; A9270; 81003; 87086

== ENCOUNTER 2023-09-05 06:50 | Outpatient (CLI) | payer MEDICARE, OTHER | END 2023-09-05 06:51 | disposition home or self-care (01) | LOC: EMS 06:50 | PROVIDERS: ATTEND Emergency Medicine | DX: L08.9 Local infection of the skin and subcutaneous tissue, unspecified (principal); F03.90 Unspecified dementia, unspecified severity, without behavioral disturbance, psychotic disturbance, mood disturbance, and anxiety | CPT/HCPCS: A0425; A0428; A0429 ==

== ENCOUNTER 2023-10-06 09:04 | Outpatient (CLI) | payer MEDICARE, OTHER | END 2023-10-06 23:59 | disposition critical access hospital (66) | LOC: EMS 09:04 | DX: R06.00 Dyspnea, unspecified (principal); R50.9 Fever, unspecified; R04.2 Hemoptysis; M79.89 Other specified soft tissue disorders | CPT/HCPCS: A0425; A0429 ==

== ENCOUNTER → 2023-10-10 | Outpatient (CLI) | payer MEDICARE, OTHER | LOC: PC 08:00 | PROVIDERS: ATTEND Nurse Practitioner Adult Health | DX: Z53.9 Procedure and treatment not carried out, unspecified reason (principal) ==

== ENCOUNTER 2023-10-12 13:13 | Outpatient (CLI) | payer MEDICARE, OTHER | END 2023-10-12 13:14 | LOC: EMS 13:13 | PROVIDERS: ATTEND Family Medicine | DX: I63.9 Cerebral infarction, unspecified (principal); I48.91 Unspecified atrial fibrillation; I10 Essential (primary) hypertension; E78.5 Hyperlipidemia, unspecified; Z74.01 Bed confinement status | CPT/HCPCS: A0425; A0428 ==

== ENCOUNTER 2023-10-16 02:36 | Outpatient (CLI) | payer MEDICARE, OTHER | END 2023-10-16 23:59 | disposition critical access hospital (66) | LOC: EMS 02:36 | DX: R04.2 Hemoptysis (principal); Z79.01 Long term (current) use of anticoagulants | CPT/HCPCS: A0425; A0429 ==

== ENCOUNTER 2023-10-16 02:41 | Emergency (ER) | payer MEDICARE, OTHER ==
[2023-10-16 03:08] LABS: BASOPHILS # (AUTO) 0.1 10^3/uL (0.0-0.1); BASOPHILS % (AUTO) 0.4 %; EOSINOPHILS # (AUTO) 0.4 10^3/uL (0.0-0.7); EOSINOPHILS % (AUTO) 2.4 %; HCT - HEMATOCRIT 34.2 % (42.0-52.0); HGB - HEMOGLOBIN 11.2 g/dL (14.0-18.0); LYMPHOCYTES # (AUTO) 1.2 10^3/uL (1.5-3.5); LYMPHOCYTES % (AUTO) 7.5 %; MEAN CORPUSCULAR HEMOGLOBIN 31.2 pg (27.0-31.0); MEAN CORPUSCULAR HGB CONC 32.7 g/dL (32.0-36.0); MEAN CORPUSCULAR VOLUME 95.3 fL (80.0-94.0); MEAN PLATELET VOLUME 9.3 fL (7.4-11.4); MONOCYTES # (AUTO) 1.2 10^3/uL (0.0-1.0); MONOCYTES % (AUTO) 7.4 %; NEUTROPHILS # (AUTO) 13.3 10^3/uL (1.5-6.6); NEUTROPHILS % (AUTO) 81.3 %; PLT - PLATELET COUNT 340 10^3/uL (130-450); RED BLOOD COUNT 3.59 10^6/uL (4.70-6.10); RED CELL DISTRIBUTION WIDTH 13.3 % (12.0-15.0); WHITE BLOOD COUNT 16.4 x10^3/uL (4.8-10.8)
[2023-10-16 03:14] LABS: INR 2.3 (0.8-1.2); PT - PROTHROMBIN TIME 24.4 secs (9.9-12.6)
[2023-10-16] MEDS ORDERED: iohexoL-300 100 ML VIAL ONE (03:19)
[2023-10-16 03:28] LABS: ALBUMIN 3.2 g/dL (3.2-5.5); ALBUMIN/GLOBULIN RATIO 0.8 (1.0-2.2); BILIRUBIN,TOTAL 0.7 mg/dL (0.2-1.0); CALCIUM 9.2 mg/dL (8.5-10.3); CREATININE 0.8 mg/dL (0.6-1.3); POTASSIUM 3.9 mmol/L (3.5-4.5); TOTAL PROTEIN 7.3 g/dL (6.4-8.9)
--- NOTE | 2023-10-16 03:35 | ED Physician Documentation ---
History of Present Illness - Stated complaint Stated Complaint: COUGHING UP BLOOD - Chief complaint Chief Complaint: Resp - History obtained from History obtained from: Family (), EMS - Additonal information Additional information: Patient is a 78-year-old male with a history Of dementia, recent hospitalization for hypoxia and treatment for pneumonia as well as congestive heart failure presenting for evaluation of hemoptysis. Patient was discharged to [facility] from his recent hospitalization on October 11 where he has been rehabbing. Per EMS staff noted the patient was coughing tonight and had 4 episodes where he coughed up a little bit of blood. EMS noted that there was some blood on the pillow near the patient. He has not been coughing while in the presence of EMS. No reported fevers. Patient has dementia and is not able to provide any meaningful history. Of note during recent hospitalization he was started on oxygen and discharged with up to 3 L to be used at [facility].He was also continued on cephalexin at discharge. Patient's also met with palliative care with goals to focus More on comfort care versus hospitalization Or efforts to prolong life.Patient is on warfarin. 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 - Past Surgical History Past Surgical History: Yes General: Colonoscopy Ortho: Amputation, Other Cardiovascular: Pacemaker, AICD - Present Medications Home Medications: Ambulatory Orders Medication Instructions Recorded Confirmed Warfarin Sodium [Coumadin] 5 mg PO [id number] 11/01/12 10/16/23 Losartan [Cozaar] 50 mg PO DAILY 04/03/17 10/16/23 Clopidogrel Bisulfate [Plavix] 75 mg PO DAILY 08/11/22 10/16/23 Donepezil HCl [Donepezil HCl Odt] 10 mg PO QPM 08/11/22 10/16/23 Memantine HCl [Namenda Xr] 14 mg PO DAILY 08/11/22 10/16/23 Atorvastatin Calcium 40 mg PO QPM 10/06/23 10/16/23 Cholecalciferol (Vitamin D3) 25 mcg PO DAILY 10/06/23 10/06/23 [Vitamin D3] Metoprolol Tartrate [Lopressor] 50 mg PO BID 10/06/23 10/16/23 Sertraline [Zoloft] 50 mg PO DAILY 10/06/23 10/16/23 Spironolactone [Aldactone] 25 mg PO DAILY 10/06/23 10/16/23 Tamsulosin [Flomax] 0.4 mg PO QPM 10/06/23 10/16/23 Warfarin [Coumadin] 7.5 mg PO MO 10/06/23 10/16/23 buPROPion HCL [Bupropion Xl] 150 mg PO DAILY 10/06/23 10/06/23 Furosemide [Lasix] 40 mg PO DAILY #30 tablet 10/12/23 10/16/23 QUEtiapine [SEROquel] 25 mg PO QPM 30 Days #30 tab 10/12/23 amLODIPine [Norvasc] 10 mg PO DAILY #30 tab 10/12/23 10/16/23 cephALEXin [Keflex] 250 mg PO Q6H 7 Days #28 tab 10/12/23 hydroCHLOROthiazide [Hydrodiuril] 12.5 mg PO DAILY 30 Days #30 cap 10/12/23 10/16/23 Amox/Clav 875/125 [Augmentin] 1 each PO Q12H #14 tablet 10/16/23 Azithromycin [Zithromax] 1 tab PO DAILY #4 tab 10/16/23 - Allergies Allergies/Adverse Reactions: Allergies Allergy/AdvReac Type Severity Reaction Status Date / Time levofloxacin Allergy Unknown Verified 10/16/23 03:09 - Social History Does the pt smoke?: No Smoking Status: Never smoker Does the pt drink ETOH?: No Does the pt have substance abuse?: No - Immunizations Immunizations are current?: Yes - POLST Patient has POLST: Yes POLST Status: DNR PD ED PE NORMAL - General General: No acute distress, Well developed/nourished. No: Alert and oriented X 3 (Alert and oriented to person only) - HEENT HEENT: Atraumatic - Neck Neck: Supple, no meningeal sign - Cardiac Cardiac: RRR - Respiratory Respiratory: No respiratory distress, Clear bilaterally - Abdomen Abdomen: Normal bowel sounds, Soft, Non tender, Non distended - Derm Derm: Warm and dry - Extremities Extremities: Other (Right below-knee amputation, left heel dressing in place - Wound looks similar to pictures from recent hospitalization, no abnormal dr mazariegos, no significant erythema) - Neuro Neuro: Normal speech. No: Alert and oriented X 3 (Alert and oriented to baseline) Results - Vitals Vitals: Vital Signs - 24 hr 10/16/23 10/16/23 10/16/23 02:46 03:00 05:42 Temperature 36.5 C Heart Rate 74 73 82 Respiratory 16 16 18 Rate Blood Pressure 184/106 H 189/68 H 182/69 H O2 Saturation 91 L 96 94 If not protocol 1 : Oxygen Flow, liters/minute Oxygen O2 Source Room air Oxygen Flow Rate 1 - EKG (time done) 0318 EKG releavant findings:: EKG personally interpreted by author of this note. Relevant findings are: Rate 71, ventricular paced rhythm, no STEMI - Labs Labs: Laboratory Tests 10/16/23 10/16/23 10/16/23 02:45 02:56 02:56 WBC 16.4 H RBC 3.59 L Hgb 11.2 L Hct 34.2 L MCV 95.3 H MCH 31.2 H MCHC 32.7 RDW 13.3 Plt Count 340 MPV 9.3 Neut # (Auto) 13.3 H Lymph # (Auto) 1.2 L [place] # (Auto) 1.2 H Eos # (Auto) 0.4 Baso # (Auto) 0.1 Absolute Nucleated RBC 0.00 Nucleated RBC % 0.0 PT 24.4 H INR 2.3 H Sodium Potassium Chloride Carbon Dioxide Anion Gap BUN Creatinine Estimated GFR (MDRD) Glucose Lactic Acid Calcium Total Bilirubin AST ALT Alkaline Phosphatase B-Natriuretic Peptide Total Protein Albumin Globulin Albumin/Globulin Ratio Lipase Nasal Adenovirus (PCR) NOT DETECTED Nasal B. parapertussis DNA (PCR) NOT DETECTED Nasal Coronavir 229E PCR NOT DETECTED Nasal Coronavir HKU1 PCR NOT DETECTED Nasal Coronavir NL63 PCR NOT DETECTED Nasal Coronavir OC43 PCR NOT DETECTED Nasal Enterovir/Rhinovir PCR NOT DETECTED Nasal Influenza B PCR NOT DETECTED Nasal Influenza A PCR NOT DETECTED Nasal Parainfluen 1 PCR NOT DETECTED Nasal Parainfluen 2 PCR NOT DETECTED Nasal Parainfluen 3 PCR NOT DETECTED Nasal Parainfluen 4 PCR NOT DETECTED Nasal RSV (PCR) NOT DETECTED Nasal B.pertussis DNA PCR NOT DETECTED Nasal C.pneumoniae (PCR) NOT DETECTED Popeye Human Metapneumo PCR NOT DETECTED Nasal M.pneumoniae (PCR) NOT DETECTED Nasal SARS-CoV-2 (PCR) NOT DETECTED 10/16/23 10/16/23 10/16/23 02:56 02:56 02:56 WBC RBC Hgb Hct MCV MCH MCHC RDW Plt Count MPV Neut # (Auto) Lymph # (Auto) [place] # (Auto) Eos # (Auto) Baso # (Auto) Absolute Nucleated RBC Nucleated RBC % PT INR Sodium 140 Potassium 3.9 Chloride 104 Carbon Dioxide 30 Anion Gap 6.0 BUN 25 H Creatinine 0.8 Estimated GFR (MDRD) 94 Glucose 105 H Lactic Acid 0.6 Calcium 9.2 Total Bilirubin 0.7 AST 18 ALT 23 Alkaline Phosphatase 85 B-Natriuretic Peptide 257 H Total Protein 7.3 Albumin 3.2 Globulin 4.1 Albumin/Globulin Ratio 0.8 L Lipase 70 Nasal Adenovirus (PCR) Nasal B. parapertussis DNA (PCR) Nasal Coronavir 229E PCR Nasal Coronavir HKU1 PCR Nasal Coronavir NL63 PCR Nasal Coronavir OC43 PCR Nasal Enterovir/Rhinovir PCR Nasal Influenza B PCR Nasal Influenza A PCR Nasal Parainfluen 1 PCR Nasal Parainfluen 2 PCR Nasal Parainfluen 3 PCR Nasal Parainfluen 4 PCR Nasal RSV (PCR) Nasal B.pertussis DNA PCR Nasal C.pneumoniae (PCR) Popeye Human Metapneumo PCR Nasal M.pneumoniae (PCR) Nasal SARS-CoV-2 (PCR) PD Medical Decision Making - ED course Complexity details: reviewed results, re-evaluated patient, d/w family ED course: Patient is a 78-year-old male presenting for evaluation of hemoptysis. He is on Plavix and Coumadin. Blood pressure is elevated but this appears to be similar to when he was recently hospitalized. CBC, chemistries, EKG, INR were obtained and reviewed. INR is therapeutic at 2.3. Hemoglobin is stable. White count is elevated at 16,000. Was 14,000 and at discharge 4 days ago. No fever. Has not had any cough here. Has been laying flat without any issues and has had no further episodes of hemoptysis. Chest x-ray which I reviewed Shows bilateral airspace opacities which appear similar to recent chest x-ray when patient was admitted for pneumonia and CHF. BNP is improved from recent hospitalization. No symptoms to suggest ACS. CT scan of the chest was obtained as an angio. There is no signs of pulmonary embolism, mass. There are Bilateral upper airspace opacities worse on the left.Patient was discharged home on cephalexin. Given recent hospitalization and corporate duties will broaden antibiotic coverage. During recent hospitalization palliative care met with the with goals if patient worsens at all to focus on comfort care to avoid hospitalizations. I did confirm this with the over the phone. Patient is not requiring any increase in oxygen and is resting comfortably here. Therefore I do feel it is reasonable to return to [facility] with change in antibiotics. 0500 - Reviewed results of workup with patient's . She is comfortable with patient being discharged back to [facility] and agrees that based on her conversations with palliative care she would like to prevent hospitalization or efforts to prolong life. She agrees with plan for change of antibiotics given slight increase in white blood cell count. Departure - Departure Disposition: 01 Home, Self Care Clinical Impression: Cough with hemoptysis, Pneumonia Condition: Stable Instructions: ED Hemoptysis, ED Pneumonia Adult Prescriptions: Amox/Clav 875/125 [Augmentin] 1 each PO Q12H #14 tablet Azithromycin [Zithromax] 1 tab PO DAILY #4 tab Comments: Tirso was evaluated for coughing up blood. His vital signs have been stable although his blood pressure has been elevated which it was during his recent hospitalization as well. His labs show that his white count is slightly increased from recent hospitalization at 16,000. Hemoglobin is improved. He is not requiring any more oxygen than what he was discharged to [facility] on. He is BMP is better than recent hospitalization. His chest x-ray still shows patchy opacities and we did a CT scan which does not show a pulmonary embolism but does again show the patchy opacities suggestive of either fluid or pneumonia. Given slight increase in his white count I will change his antibiotic from cephalexin to Augmentin and azithromycin and given him the first dose tonight. I have sent prescriptions through [facility].I would recommend follow-up with his primary care doctor as well as palliative care. INR is 2.3. Stop cephalexin. Please take the new antibiotics. INR should be rechecked this week given antibiotic changes. Forms: PCP List Discharge Date/Time: 10/16/23 05:43
[2023-10-16 04:02] LABS: B. PARAPERTUSSIS- RESP PCR PAN NOT DETECTED; B. PERTUSSIS- RESP PCR PANEL NOT DETECTED; C. PNEUMONIAE- RESP PCR PANEL NOT DETECTED; CORONAVIRUS 229E-RESP PCR NOT DETECTED; CORONAVIRUS HKU1-RESP PCR NOT DETECTED; CORONAVIRUS NL63-RESP PCR NOT DETECTED; CORONAVIRUS OC43-RESP PCR NOT DETECTED; HUMAN METAPNEUMOVIRUS NOT DETECTED; INFLUENZA A- RESP PCR PANEL NOT DETECTED; INFLUENZA B - RESP PCR PANEL NOT DETECTED; M. PNEUMONIAE- RESP PCR PANEL NOT DETECTED; PARAINFLUENZA VIRUS 1 NOT DETECTED; PARAINFLUENZA VIRUS 2 NOT DETECTED; PARAINFLUENZA VIRUS 3 NOT DETECTED; PARAINFLUENZA VIRUS 4 NOT DETECTED; RHINOVIRUS/ENTEROVIRUS NOT DETECTED; RSV- RESP PCR PANEL NOT DETECTED; SARS-CoV-2 -RESP PCR PANEL NOT DETECTED
[2023-10-16] MEDS: iohexoL-300 100 ML VIAL IVP ONE (04:10)
[2023-10-16] MEDS: AZITHROMYCIN 250 MG TABLET PO STA (05:38)
[2023-10-16] MEDS: AMOX/CLAV 875 MG/125 MG TABLET PO STA (05:38)
[2023-10-16 05:50] VITALS: BP 182/69; O2SAT 94
--- NOTE | 2023-10-16 09:12 | CT Report ---
PROCEDURE: Angio Chest INDICATIONS: hemoptysis CONTRAST: Omni 300, 80mls TECHNIQUE: After the administration of intravenous contrast, 2 mm axial images were acquired from the pulmonary apices to the posterior costophrenic angles during the arterial phase. In addition, 1 mm lung kernel and 5 mm soft tissue kernel reconstructions were performed. 3-dimensional coronal oblique maximum int ensity projection (MIP) reformats, 8 mm axial MIP, and 5 mm coronal and sagittal MPR reformats were t hen performed through the thorax. For radiation dose reduction, the following was used: automated exp osure control, adjustment of mA and/or kV according to patient size. COMPARISON: Chest x-ray 10/09/2023 FINDINGS: Image quality: Excellent. Large vessels: Normal-sized pulmonary arteries without filling defects to suggest embolus. Normal siz e thoracic aorta with [id number] calcification. Lungs and pleura: Moderate upper lobe emphysematous changes. Mixed interstitial and alveolar opacitie s at both lung apices, left greater than right. Patchy alveolar opacity in the left lower lobe centra lly. Small dependent bilateral pleural effusions. Airways are grossly patent. Mediastinum: Heart size is enlarged and there are moderate coronary artery calcifications. Multilead pacemaker is in place. No pericardial effusion. Mild mediastinal adenopathy. No hilar adenopathy. Nor mal esophagus without hiatal hernia.. Chest wall and lower neck: Thyroid is not well seen. Right-sided pacemaker. Left-sided [id number]. Gynecomastia. No axillary or supraclavicular adenopathy by size. Bones: Anterolateral right third and fourth rib fractures. These appear partially healed. Upper Abdomen: Unremarkable. IMPRESSION: No pulmonary embolus. Mixed interstitial and alveolar opacities in both upper lobes and centrally in the left lower lobe serrano ggesting infection or inflammation. Probably reactive mediastinal adenopathy Small bilateral pleural effusions. Mild cardiomegaly. Final interpretation concordant with preliminary report. Reviewed by: Tash Carbajal MD on 10/16/2023 9:10 AM PDT Approved by: Tash Carbajal MD on 10/16/2023 9:10 AM PDT Station ID: [id number]
--- NOTE | 2023-10-16 09:14 | XRAY Report ---
PROCEDURE: Chest 1V INDICATIONS: hemoptysis TECHNIQUE: One view of the chest was acquired. COMPARISON: 10/09/2023 FINDINGS: Surgical changes and devices: Right-sided multi lead pacemaker. The left-sided Mediport. Lungs and pleura: Increased opacity in the left upper lung superimposed on diffuse interstitial prom inence, chronic. Stable left infrahilar and right medial apical opacities. Trace right pleural effusi on. Mediastinum: Mild cardiomegaly, stable. No significant central venous congestion. Bones and chest wall: No suspicious bony lesions. Remote right clavicle and rib fractures. Overlyin g soft tissues appear unremarkable. IMPRESSION: Worsening multifocal bilateral alveolar opacities superimposed on chronic interstitial prominence. Stable mild cardiomegaly. Final interpretation concordant with preliminary report. Reviewed by: Tash Carbajal MD on 10/16/2023 9:13 AM PDT Approved by: Tash Carbajal MD on 10/16/2023 9:13 AM PDT Station ID: [id number]
== END 2023-10-16 05:43 | disposition home or self-care (01) ==
LOC: EDUNIT# → ED 02:41
DX: J18.9 Pneumonia, unspecified organism (principal); R04.2 Hemoptysis; I11.0 Hypertensive heart disease with heart failure; I50.9 Heart failure, unspecified; E78.00 Pure hypercholesterolemia, unspecified; E11.9 Type 2 diabetes mellitus without complications; F03.90 Unspecified dementia, unspecified severity, without behavioral disturbance, psychotic disturbance, mood disturbance, and anxiety; Z66 Do not resuscitate; Z79.02 Long term (current) use of antithrombotics/antiplatelets; Z79.01 Long term (current) use of anticoagulants; Z79.899 Other long term (current) drug therapy; Z89.511 Acquired absence of right leg below knee
CPT/HCPCS: 36415; 71045; 71275; 80053; 83605; 83690; 83880; 85025; 85610; 87633; 93005; 99284; A9270; Q9967

== ENCOUNTER 2023-10-16 05:48 | Outpatient (CLI) | payer MEDICARE, OTHER | END 2023-10-16 23:59 | LOC: EMS 05:48 | PROVIDERS: ATTEND Emergency Medicine | DX: R41.0 Disorientation, unspecified (principal); Z74.01 Bed confinement status; J18.9 Pneumonia, unspecified organism | CPT/HCPCS: A0425; A0428 ==

== ENCOUNTER 2023-10-19 12:34 | Outpatient (CLI) | payer MEDICARE, OTHER | END 2023-10-19 12:35 | disposition home or self-care (01) | LOC: LAB.R 12:34 | PROVIDERS: ATTEND Registered Nurse | DX: L97.429 Non-pressure chronic ulcer of left heel and midfoot with unspecified severity (principal); Z89.422 Acquired absence of other left toe(s) | CPT/HCPCS: 87070; 87077; 87181; 87205 ==

== ENCOUNTER 2023-11-02 08:41 | Outpatient (CLI) | payer MEDICARE, OTHER ==
[2023-11-02 08:53] LABS: BASOPHILS # (AUTO) 0.1 10^3/uL (0.0-0.1); BASOPHILS % (AUTO) 0.8 %; EOSINOPHILS # (AUTO) 0.7 10^3/uL (0.0-0.7); EOSINOPHILS % (AUTO) 7.9 %; HCT - HEMATOCRIT 36.9 % (42.0-52.0); LYMPHOCYTES # (AUTO) 0.8 10^3/uL (1.5-3.5); LYMPHOCYTES % (AUTO) 9.3 %; MEAN CORPUSCULAR HGB CONC 32.5 g/dL (32.0-36.0); MEAN CORPUSCULAR VOLUME 95.3 fL (80.0-94.0); MEAN PLATELET VOLUME 9.3 fL (7.4-11.4); MONOCYTES # (AUTO) 1.1 10^3/uL (0.0-1.0); MONOCYTES % (AUTO) 12.7 %; NEUTROPHILS # (AUTO) 6.1 10^3/uL (1.5-6.6); NEUTROPHILS % (AUTO) 68.6 %; PLT - PLATELET COUNT 280 10^3/uL (130-450); RED BLOOD COUNT 3.87 10^6/uL (4.70-6.10); RED CELL DISTRIBUTION WIDTH 13.3 % (12.0-15.0); WHITE BLOOD COUNT 8.8 x10^3/uL (4.8-10.8)
[2023-11-02 09:13] LABS: ALBUMIN/GLOBULIN RATIO 0.7 (1.0-2.2); BILIRUBIN,TOTAL 0.6 mg/dL (0.2-1.0); CALCIUM 9.6 mg/dL (8.5-10.3); CREATININE 1.1 mg/dL (0.6-1.3); CRP - C-REACTIVE PROTEIN 7.4 mg/dL (<0.5); POTASSIUM 3.7 mmol/L (3.5-4.5); TOTAL PROTEIN 7.2 g/dL (6.4-8.9)
== END 2023-11-02 08:42 | disposition home or self-care (01) ==
LOC: LAB.R 08:41
PROVIDERS: ATTEND Registered Nurse
DX: D64.9 Anemia, unspecified (principal); B95.62 Methicillin resistant Staphylococcus aureus infection as the cause of diseases classified elsewhere
CPT/HCPCS: 80053; 82550; 85025; 86140

== ENCOUNTER 2023-11-04 18:25 | Outpatient (CLI) | payer MEDICARE, OTHER | END 2023-11-04 23:59 | disposition critical access hospital (66) | LOC: EMS 18:25 | DX: T82.524A Displacement of infusion catheter, initial encounter (principal) | CPT/HCPCS: A0425; A0429 ==

== ENCOUNTER 2023-11-04 18:31 | Emergency (ER) | payer MEDICARE, OTHER ==
--- NOTE | 2023-11-04 18:41 | ED Physician Documentation ---
History of Present Illness - Stated complaint Stated Complaint: PULLED OUT PORT - History obtained from History obtained from: Patient - History of Present Illness Timing: Today Pain level max: 0 Pain level now: 0 - Additonal information Additional information: 78-year-old male with a history of dementia is currently undergoing treatment for an MRSA infection with IV antibiotics. He is living at [facility]. The custodial states that he pulled the access out of the port in his left upper chest. They have sent him here to have the port reaccessed. They state that the nurses at the correction facility do not know how to do this. PD PAST MEDICAL HISTORY - Past Medical History Cardiovascular: Congestive heart failure, Hypertension, High cholesterol, Coronary artery disease, Peripheral Vascular Disease, [place], Atrial fibrillation Respiratory: Shortness of breath, Other Neuro: Dementia Endocrine/Autoimmune: Type 2 diabetes GI: None, Other : Benign prostate hypertrophy, Nocturia HEENT: None Psych: Anxiety Musculoskeletal: Fatigue, Other Derm: Other - Past Surgical History Past Surgical History: Yes General: Colonoscopy Ortho: Amputation, Other Cardiovascular: Pacemaker, AICD - Present Medications Home Medications: Ambulatory Orders Medication Instructions Recorded Confirmed Warfarin Sodium [Coumadin] 5 mg PO [id number] 11/01/12 10/16/23 Losartan [Cozaar] 50 mg PO DAILY 04/03/17 10/16/23 Clopidogrel Bisulfate [Plavix] 75 mg PO DAILY 08/11/22 10/16/23 Donepezil HCl [Donepezil HCl Odt] 10 mg PO QPM 08/11/22 10/16/23 Memantine HCl [Namenda Xr] 14 mg PO DAILY 08/11/22 10/16/23 Atorvastatin Calcium 40 mg PO QPM 10/06/23 10/16/23 Cholecalciferol (Vitamin D3) 25 mcg PO DAILY 10/06/23 10/06/23 [Vitamin D3] Metoprolol Tartrate [Lopressor] 50 mg PO BID 10/06/23 10/16/23 Sertraline [Zoloft] 50 mg PO DAILY 10/06/23 10/16/23 Spironolactone [Aldactone] 25 mg PO DAILY 10/06/23 10/16/23 Tamsulosin [Flomax] 0.4 mg PO QPM 10/06/23 10/16/23 Warfarin [Coumadin] 7.5 mg PO MO 10/06/23 10/16/23 buPROPion HCL [Bupropion Xl] 150 mg PO DAILY 10/06/23 10/06/23 Furosemide [Lasix] 40 mg PO DAILY #30 tablet 10/12/23 10/16/23 QUEtiapine [SEROquel] 25 mg PO QPM 30 Days #30 tab 10/12/23 amLODIPine [Norvasc] 10 mg PO DAILY #30 tab 10/12/23 10/16/23 cephALEXin [Keflex] 250 mg PO Q6H 7 Days #28 tab 10/12/23 hydroCHLOROthiazide [Hydrodiuril] 12.5 mg PO DAILY 30 Days #30 cap 10/12/23 10/16/23 Amox/Clav 875/125 [Augmentin] 1 each PO Q12H #14 tablet 10/16/23 Azithromycin [Zithromax] 1 tab PO DAILY #4 tab 10/16/23 - Allergies Allergies/Adverse Reactions: Allergies Allergy/AdvReac Type Severity Reaction Status Date / Time levofloxacin Allergy Unknown Verified 11/04/23 18:48 - Social History Does the pt smoke?: No Smoking Status: Never smoker Does the pt drink ETOH?: No Does the pt have substance abuse?: No - Immunizations Immunizations are current?: Yes - POLST Patient has POLST: Yes POLST Status: DNR PD ED PE NORMAL - Vitals Vital signs reviewed: Yes - General General: Other (Pleasantly demented) - HEENT HEENT: Moist mucous membranes - Neck Neck: Supple, no meningeal sign - Cardiac Cardiac: RRR, Other (Port in the left upper chest) - Respiratory Respiratory: No respiratory distress, Clear bilaterally - Derm Derm: Warm and dry Results - Vitals Vitals: Vital Signs - 24 hr 11/04/23 11/04/23 18:30 18:56 Temperature 36.7 C 36.7 C Heart Rate 72 72 Respiratory 16 16 Rate Blood Pressure 133/54 H 133/54 H O2 Saturation 99 99 Oxygen O2 Source Room air PD Medical Decision Making - ED course Complexity details: considered differential, d/w patient ED course: The port was reaccessed by nursing staff here. There are no other complaints. No emergency medical condition at this time. Patient will be sent back via ambulance. This document was made in part using voice recognition software. While efforts are made to proofread this document, sound alike and grammatical errors may occur. Departure - Departure Disposition: 01 Home, Self Care Clinical Impression: Encounter for care related to vascular access port Condition: Good Instructions: Vascular Access Implantation Follow-Up: your,doctor as needed [Other] Comments: His port was reaccessed today. Please follow-up with his doctor for further care. Forms: PCP List Discharge Date/Time: 11/04/23 18:44
[2023-11-04 18:52] VITALS: BP 133/54; O2SAT 99
== END 2023-11-04 18:44 | disposition home or self-care (01) ==
LOC: EDUNIT# → EDBD → ED 18:31
DX: Z45.2 Encounter for adjustment and management of vascular access device (principal); Z86.14 Personal history of Methicillin resistant Staphylococcus aureus infection; I11.0 Hypertensive heart disease with heart failure; I50.9 Heart failure, unspecified; I25.10 Atherosclerotic heart disease of native coronary artery without angina pectoris; E11.9 Type 2 diabetes mellitus without complications; Z79.02 Long term (current) use of antithrombotics/antiplatelets; Z79.01 Long term (current) use of anticoagulants; I48.91 Unspecified atrial fibrillation; Z95.0 Presence of cardiac pacemaker
CPT/HCPCS: 99282

== ENCOUNTER 2023-11-04 18:50 | Outpatient (CLI) | payer MEDICARE, OTHER | END 2023-11-04 23:59 | LOC: EMS 18:50 | PROVIDERS: ATTEND Emergency Medicine | DX: R41.0 Disorientation, unspecified (principal) | CPT/HCPCS: A0425; A0428 ==

== ENCOUNTER 2023-11-05 13:21 | Outpatient (CLI) | payer MEDICARE, OTHER ==
[2023-11-05 13:32] LABS: BASOPHILS # (AUTO) 0.1 10^3/uL (0.0-0.1); BASOPHILS % (AUTO) 0.3 %; EOSINOPHILS # (AUTO) 0.6 10^3/uL (0.0-0.7); EOSINOPHILS % (AUTO) 3.6 %; HCT - HEMATOCRIT 33.7 % (42.0-52.0); HGB - HEMOGLOBIN 11.2 g/dL (14.0-18.0); LYMPHOCYTES # (AUTO) 0.8 10^3/uL (1.5-3.5); LYMPHOCYTES % (AUTO) 4.9 %; MEAN CORPUSCULAR HEMOGLOBIN 30.9 pg (27.0-31.0); MEAN CORPUSCULAR HGB CONC 33.2 g/dL (32.0-36.0); MEAN CORPUSCULAR VOLUME 92.8 fL (80.0-94.0); MEAN PLATELET VOLUME 9.4 fL (7.4-11.4); MONOCYTES # (AUTO) 1.2 10^3/uL (0.0-1.0); MONOCYTES % (AUTO) 7.6 %; NEUTROPHILS # (AUTO) 12.8 10^3/uL (1.5-6.6); PLT - PLATELET COUNT 284 10^3/uL (130-450); RED BLOOD COUNT 3.63 10^6/uL (4.70-6.10); WHITE BLOOD COUNT 15.4 x10^3/uL (4.8-10.8)
[2023-11-05 13:47] LABS: ALBUMIN 3.1 g/dL (3.2-5.5); ALBUMIN/GLOBULIN RATIO 0.7 (1.0-2.2); BILIRUBIN,TOTAL 0.7 mg/dL (0.2-1.0); CALCIUM 9.4 mg/dL (8.5-10.3); CREATININE 1.1 mg/dL (0.6-1.3); CRP - C-REACTIVE PROTEIN 10.2 mg/dL (<0.5); POTASSIUM 3.6 mmol/L (3.5-4.5); TOTAL PROTEIN 7.4 g/dL (6.4-8.9)
== END 2023-11-05 13:22 | disposition home or self-care (01) ==
LOC: LAB.R 13:21
PROVIDERS: ATTEND Registered Nurse
DX: I11.9 Hypertensive heart disease without heart failure (principal); M62.81 Muscle weakness (generalized); J81.0 Acute pulmonary edema; B95.62 Methicillin resistant Staphylococcus aureus infection as the cause of diseases classified elsewhere
CPT/HCPCS: 80053; 82550; 85025; 86140

== ENCOUNTER 2023-11-09 09:44 | Outpatient (CLI) | payer MEDICARE, OTHER ==
[2023-11-09 10:00] LABS: BASOPHILS % (AUTO) 0.2 %; EOSINOPHILS % (AUTO) 6.1 %; HCT - HEMATOCRIT 30.2 % (42.0-52.0); HGB - HEMOGLOBIN 9.5 g/dL (14.0-18.0); LYMPHOCYTES # (AUTO) 0.7 10^3/uL (1.5-3.5); LYMPHOCYTES % (AUTO) 4.4 %; MEAN CORPUSCULAR HEMOGLOBIN 29.6 pg (27.0-31.0); MEAN CORPUSCULAR HGB CONC 31.5 g/dL (32.0-36.0); MEAN CORPUSCULAR VOLUME 94.1 fL (80.0-94.0); MEAN PLATELET VOLUME 10.1 fL (7.4-11.4); MONOCYTES % (AUTO) 5.8 %; NEUTROPHILS # (AUTO) 13.7 10^3/uL (1.5-6.6); NEUTROPHILS % (AUTO) 82.7 %; PLT - PLATELET COUNT 261 10^3/uL (130-450); RED BLOOD COUNT 3.21 10^6/uL (4.70-6.10); RED CELL DISTRIBUTION WIDTH 13.5 % (12.0-15.0); WHITE BLOOD COUNT 16.6 x10^3/uL (4.8-10.8)
[2023-11-09 10:04] LABS: SLIDE REVIEW? Indicated
[2023-11-09 10:19] LABS: PLATELET ESTIMATE, MANUAL NORMAL (130-450,000) (NORMAL); PLATELET MORPHOLOGY NORMAL APPEARANCE (NORMAL); RBC MORPHOLOGY (MULTIPLE) NORMAL APPEARANCE (NORMAL); WBC MORPHOLOGY (MULTIPLE) NORMAL APPEARANCE (NORMAL)
[2023-11-09 10:33] LABS: ALBUMIN 2.5 g/dL (3.2-5.5); ALBUMIN/GLOBULIN RATIO 0.7 (1.0-2.2); BILIRUBIN,TOTAL 0.7 mg/dL (0.2-1.0); CALCIUM 8.6 mg/dL (8.5-10.3); CRP - C-REACTIVE PROTEIN 23.3 mg/dL (<0.5); POTASSIUM 3.4 mmol/L (3.5-4.5); TOTAL PROTEIN 6.3 g/dL (6.4-8.9)
== END 2023-11-09 09:45 | disposition home or self-care (01) ==
LOC: LAB.R 09:44
PROVIDERS: ATTEND Registered Nurse
DX: M62.81 Muscle weakness (generalized) (principal); D64.9 Anemia, unspecified; B95.62 Methicillin resistant Staphylococcus aureus infection as the cause of diseases classified elsewhere
CPT/HCPCS: 80053; 82550; 85025; 86140

== ENCOUNTER 2023-11-09 15:08 | Outpatient (CLI) | payer MEDICARE, OTHER | END 2023-11-09 23:59 | disposition critical access hospital (66) | LOC: EMS 15:08 | DX: R06.02 Shortness of breath (principal); D72.829 Elevated white blood cell count, unspecified; Z99.81 Dependence on supplemental oxygen | CPT/HCPCS: A0425; A0429 ==

== ENCOUNTER 2023-11-09 15:16 | Inpatient (IN) | payer MEDICARE, OTHER ==
[2023-11-09 16:06] LABS: BASOPHILS % (AUTO) 0.2 %; HCT - HEMATOCRIT 33.7 % (42.0-52.0); HGB - HEMOGLOBIN 10.3 g/dL (14.0-18.0); LYMPHOCYTES % (AUTO) 5.6 %; MEAN CORPUSCULAR HEMOGLOBIN 29.8 pg (27.0-31.0); MEAN CORPUSCULAR HGB CONC 30.6 g/dL (32.0-36.0); MEAN CORPUSCULAR VOLUME 97.4 fL (80.0-94.0); MEAN PLATELET VOLUME 9.4 fL (7.4-11.4); MONOCYTES % (AUTO) 5.7 %; NEUTROPHILS % (AUTO) 79.1 %; PLT - PLATELET COUNT 267 10^3/uL (130-450); RED BLOOD COUNT 3.46 10^6/uL (4.70-6.10); RED CELL DISTRIBUTION WIDTH 13.5 % (12.0-15.0); WHITE BLOOD COUNT 18.9 x10^3/uL (4.8-10.8)
[2023-11-09 16:10] LABS: ABNORMAL LYMPHS % (MANUAL) 0 %; BAND NEUTROPHILS % (MANUAL) 0 %
[2023-11-09 16:37] LABS: ALBUMIN 2.7 g/dL (3.2-5.5); ALBUMIN/GLOBULIN RATIO 0.7 (1.0-2.2); BILIRUBIN,TOTAL 0.6 mg/dL (0.2-1.0); CRP - C-REACTIVE PROTEIN 29.4 mg/dL (<0.5); POTASSIUM 3.8 mmol/L (3.5-4.5); TOTAL PROTEIN 6.7 g/dL (6.4-8.9)
--- NOTE | 2023-11-09 16:38 | XRAY Report ---
PROCEDURE: Chest 2V INDICATIONS: Shortness of breath. TECHNIQUE: 2 views of the chest were acquired. COMPARISON: None. FINDINGS: Surgical changes and devices: Pacemaker device, and Port-A-Cath remain in normal positions.. Lungs and pleura: No pleural effusions or pneumothorax. Lungs are again seen to be abnormal bilater ally with an alveolar infiltration pattern prominent on the left and mild on the right but without si gnificant change from approximately 1 month ago. Mediastinum: Mediastinal contours appear normal. Heart size is normal. Bones and chest wall: No suspicious bony lesions. Overlying soft tissues appear unremarkable. IMPRESSION: No acute cardiopulmonary process. Asymmetric persistent alveolar infiltration, left greater than right. No definite improvement or wors ening. Reviewed by: Gus James MD on 11/09/2023 4:37 PM PDT Approved by: Gus James MD on 11/09/2023 4:37 PM PDT Station ID: [id number]
[2023-11-09 16:52] LABS: DIFFERENTIAL COMMENT MANUAL DIFFERENTIAL; EOSINOPHILS # (MANUAL) 0.9 10^3/uL (0-0.7); LYMPHOCYTES # (MANUAL) 1.3 10^3/uL (1.5-3.5); LYMPHOCYTES % (MANUAL) 7 %; MONOCYTES # (MANUAL) 0.4 10^3/uL (0.0-1.0); NEUTROPHILS # (MANUAL) 16.3 10^3/uL (1.5-6.6); PLATELET ESTIMATE, MANUAL NORMAL (130-450,000) (NORMAL); PLATELET MORPHOLOGY NORMAL APPEARANCE (NORMAL); RBC MORPHOLOGY (MULTIPLE) NORMAL APPEARANCE (NORMAL)
[2023-11-09 20:08] LABS: BILIRUBIN,URINE NEGATIVE (NEGATIVE); GLUCOSE, URINE (UA) NEGATIVE (NEGATIVE); KETONES,URINE (UA) NEGATIVE (NEGATIVE); LEUKOCYTE ESTERASE, URINE NEGATIVE (NEGATIVE); NITRITE,URINE NEGATIVE (NEGATIVE); OCCULT BLOOD,URINE LARGE (NEGATIVE); PROTEIN,URINE 100 mg/dL (NEGATIVE); UROBILINOGEN,URINE 0.2 (NORMAL) E.U./dL (NORMAL)
[2023-11-09 20:13] LABS: CLARITY,URINE CLEAR (CLEAR)
[2023-11-09 20:32] LABS: BACTERIA,URINE Rare /HPF (None Seen); SQUAMOUS EPITHELIAL CELL,UR FEW Squamous (<= Few); WBC,URINE 0-3 /HPF (0-3)
[2023-11-09 20:33] LABS: CASTS, URINE 0-2 Fine Granular /LPF
--- NOTE | 2023-11-09 21:13 | CT Report ---
PROCEDURE: Lower Extremity LT WO INDICATIONS: Evaluate for abscess to achilles wound TECHNIQUE: Noncontrast 3-mm axial sections acquired from the distal tibial shaft to the talar dome, with coronal and sagittal reformats. For radiation dose reduction, the following was used: automated exposure c ontrol, adjustment of mA and/or kV according to patient size. COMPARISON: None. FINDINGS: Image quality: Diagnostic. Bones: No acute fracture. Degenerative changes of the midfoot. Ankle mortise is intact and congruent . Soft tissues: Marked soft tissue thickening and increased density about the posterior ankle region an d involving the calcaneal tendon. The calcaneal tendon appears thickened with internal ill-defined hy podensity measuring approximately 6.6 cm in SI dimension (15/33). Vascular calcifications are present . Impression: Marked soft tissue thickening involving the posterior ankle region and calcaneal tendon c onsistent with cellulitis. Ill-defined hypodense density within the calcaneal tendon may represent ph legmonous changes, however no discrete rim-enhancing or drainable fluid collection identified. No acute osseous abnormality. Reviewed by: July Handley MD, PhD on 11/09/2023 9:12 PM PDT Approved by: July Handley MD, PhD on 11/09/2023 9:12 PM PDT Station ID: [id number]
--- NOTE | 2023-11-09 21:52 | ED Physician Documentation ---
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 I spoke with patient's infectious disease Dr. Freeman about the complexities of the patient. He is currently receiving IV meropenem and daptomycin and there was possible concerns of eosinophilic pneumonia. Patient's white count outpatie nt has been trending up as well as CRP he has been afebrile. Patient has a consult with vascular surgeon Dr. Yeager on Sunday at [facility] who did his previous amputation 6 years ago and patient will need a left lower extremity amputation for his peripheral vascular disease and Achilles tendon wound infection. Patient's is closely involved with the care and she had a very lengthy conversation with Dr. Freeman hospice versus amputation at this point in time patient's would like to pursue amputation consult with Dr. Yeager. Upon arrival to the emergency department patient was having quite a bit of shortness of breath.At home patient is on 2 to 3 L of supplemental nasal cannula oxygen for his CHF and on arrival patient was satting at 86% on 3 L of nasal cannula supplemental oxygen. Patient pulled off his nasal cannula and he was found to be D satting 78% on room air. Patient initially had been put on a 15 L nonrebreather mask and was able to get oxygen back up to 97% we have been slowly weaning it it is now about 7 to 8 L nonrebreather supplemental oxygen. PD PAST MEDICAL HISTORY - Past Medical History Cardiovascular: Congestive heart failure, Hypertension, High cholesterol, Coronary artery disease, Peripheral Vascular Disease, [place], Atrial fibrillation Respiratory: Shortness of breath, Other Neuro: Dementia Endocrine/Autoimmune: Type 2 diabetes GI: None, Other : Benign prostate hypertrophy, Nocturia HEENT: None Psych: Anxiety Musculoskeletal: Fatigue, Other Derm: Other - Past Surgical History Past Surgical History: Yes General: Colonoscopy Ortho: Amputation, Other Cardiovascular: Pacemaker, AICD - Present Medications Home Medications: Ambulatory Orders Medication Instructions Recorded Confirmed Losartan [Cozaar] 75 mg PO DAILY 04/03/17 11/09/23 Clopidogrel Bisulfate [Plavix] 75 mg PO DAILY 08/11/22 11/09/23 Donepezil HCl [Donepezil HCl Odt] 10 mg PO QPM 08/11/22 11/09/23 Memantine HCl [Namenda Xr] 14 mg PO DAILY 08/11/22 11/09/23 Atorvastatin Calcium 40 mg PO QPM 10/06/23 11/09/23 Cholecalciferol (Vitamin D3) 25 mcg PO DAILY 10/06/23 11/09/23 [Vitamin D3] Metoprolol Tartrate [Lopressor] 50 mg PO BID 10/06/23 11/09/23 Sertraline [Zoloft] 50 mg PO DAILY 10/06/23 11/09/23 Spironolactone [Aldactone] 25 mg PO DAILY 10/06/23 11/09/23 Tamsulosin [Flomax] 0.4 mg PO QPM 10/06/23 11/09/23 buPROPion HCL [Bupropion Xl] 150 mg PO DAILY 10/06/23 11/09/23 Furosemide [Lasix] 40 mg PO DAILY #30 tablet 10/12/23 11/09/23 QUEtiapine [SEROquel] 25 mg PO QPM 30 Days #30 tab 10/12/23 11/09/23 amLODIPine [Norvasc] 10 mg PO DAILY #30 tab 10/12/23 11/09/23 hydroCHLOROthiazide [Hydrodiuril] 12.5 mg PO DAILY 30 Days #30 cap 10/12/23 11/09/23 Acetaminophen [Tylenol] 650 mg PO Q4HR PRN 11/09/23 11/09/23 DAPTOmycin in 0.9 % sod chlor 672 mg IV DAILY 11/09/23 11/09/23 [Daptomycin 700 mg/100Ml-Ns Bag] Ferrous Sulfate 325 mg PO DAILY 11/09/23 11/09/23 Meropenem 2 gm IV Q8HR 11/09/23 11/09/23 Ondansetron HCl 4 mg PO Q6HR PRN 11/09/23 11/09/23 Warfarin Sodium [Coumadin] 3 mg PO HS 11/09/23 11/09/23 Warfarin Sodium [Jantoven] 4 mg PO HS 11/09/23 11/09/23 - Allergies Allergies/Adverse Reactions: Allergies Allergy/AdvReac Type Severity Reaction Status Date / Time levofloxacin Allergy Unknown Verified 11/04/23 18:48 - Social History Does the pt smoke?: No Smoking Status: Never smoker Does the pt drink ETOH?: No Does the pt have substance abuse?: No - Immunizations Immunizations are current?: Yes - POLST Patient has POLST: Yes POLST Status: DNR PD ED PE NORMAL - Vitals Vital signs reviewed: Yes - General General: No acute distress, Other (cachectic, ill appearing) - HEENT HEENT: Atraumatic, PERRL. No: Moist mucous membranes - Cardiac Cardiac: Other (diminished heart sounds, paced) - Respiratory Respiratory: Other (diminished breath sounds with ronchi) - Abdomen Abdomen: Soft - Derm Derm: Other (left achilles pressure ulcer with sloughing) - Psych Psych: Normal mood Results - Vitals Vitals: Vital Signs - 24 hr 11/09/23 11/09/23 11/09/23 15:29 15:33 17:33 Temperature 36.8 C Heart Rate 77 77 74 Respiratory 17 31 H 26 H Rate Blood Pressure 164/65 H 148/53 H 152/54 H O2 Saturation 86 L 95 96 If not protocol 8 8 : Oxygen Flow, liters/minute 11/09/23 11/09/23 19:00 21:00 Temperature Heart Rate 74 77 Respiratory 28 H 23 Rate Blood Pressure 147/60 H 148/56 H O2 Saturation 95 91 L If not protocol : Oxygen Flow, liters/minute Oxygen O2 Source Simple Mask Oxygen Flow Rate 8 - Labs Labs: Laboratory Tests 11/09/23 11/09/23 11/09/23 15:40 15:40 15:40 WBC 18.9 H RBC 3.46 L Hgb 10.3 L Hct 33.7 L MCV 97.4 H MCH 29.8 MCHC 30.6 L RDW 13.5 Plt Count 267 MPV 9.4 Neut # (Auto) Not Reportable Lymph # (Auto) Not Reportable Dawes # (Auto) Not Reportable Eos # (Auto) Not Reportable Baso # (Auto) Not Reportable Absolute Nucleated RBC Not Reportable Total Counted 100 Band Neuts % (Manual) 0 Abnorm Lymph % (Manual) 0 Nucleated RBC % Not Reportable Neutrophils # (Manual) 16.3 H Lymphocytes # (Manual) 1.3 L Monocytes # (Manual) 0.4 Eosinophils # (Manual) 0.9 H Basophils # (Manual) 0.0 Differential Comment MANUAL DIFFERENTIAL Platelet Estimate NORMAL (130-450,000) Platelet Morphology NORMAL APPEARANCE RBC Morph Micro Appear NORMAL APPEARANCE Sodium 141 Potassium 3.8 Chloride 103 Carbon Dioxide 32 Anion Gap 6.0 BUN 39 H Creatinine 1.0 Estimated GFR (MDRD) 72 L Glucose 125 H Calcium 9.0 Magnesium 2.0 Total Bilirubin 0.6 AST 20 ALT 20 Alkaline Phosphatase 83 C-Reactive Protein 29.4 H B-Natriuretic Peptide Total Protein 6.7 Albumin 2.7 L Globulin 4.0 Albumin/Globulin Ratio 0.7 L Lipase 27 Procalcitonin Immunoas 0.47 Urine Color Urine Clarity Urine pH Ur Specific [place] Urine Protein Urine Glucose (UA) Urine Ketones Urine Occult Blood Urine Nitrite Urine Bilirubin Urine Urobilinogen Ur Leukocyte Esterase Urine RBC Urine WBC Ur Squamous Epith Cells Urine Bacteria Urine Casts Ur Microscopic Review Urine Culture Comments 11/09/23 11/09/23 15:40 20:00 WBC RBC Hgb Hct MCV MCH MCHC RDW Plt Count MPV Neut # (Auto) Lymph # (Auto) [place] # (Auto) Eos # (Auto) Baso # (Auto) Absolute Nucleated RBC Total Counted Band Neuts % (Manual) Abnorm Lymph % (Manual) Nucleated RBC % Neutrophils # (Manual) Lymphocytes # (Manual) Monocytes # (Manual) Eosinophils # (Manual) Basophils # (Manual) Differential Comment Platelet Estimate Platelet Morphology RBC Morph Micro Appear Sodium Potassium Chloride Carbon Dioxide Anion Gap BUN Creatinine Estimated GFR (MDRD) Glucose Calcium Magnesium Total Bilirubin AST ALT Alkaline Phosphatase C-Reactive Protein B-Natriuretic Peptide 322 H Total Protein Albumin Globulin Albumin/Globulin Ratio Lipase Procalcitonin Immunoas Urine Color YELLOW Urine Clarity CLEAR Urine pH 6.0 Ur Specific [place] 1.025 Urine Protein 100 H Urine Glucose (UA) NEGATIVE Urine Ketones NEGATIVE Urine Occult Blood LARGE H Urine Nitrite NEGATIVE Urine Bilirubin NEGATIVE Urine Urobilinogen 0.2 (NORMAL) Ur Leukocyte Esterase NEGATIVE Urine RBC 6-10 H Urine WBC 0-3 Ur Squamous Epith Cells FEW Squamous Urine Bacteria Rare Urine Casts 0-2 Fine Granular Ur Microscopic Review INDICATED Urine Culture Comments NOT INDICATED - Rads (name of study) CT lower extremity without con Relevant Findings:: Final report received, EMP independent interpretation of test, Other (No acute osseous abnormalities, marked soft tissue thickening involving the posterior ankle region and calcaneal tendon consistent with cellulitis, ill-defined hypodense density within the calcaneal tendon may repres ent phlegmonous changes.) 2 view chest x-ray Relevant Findings:: Final report received, EMP independent interpretation of test, Other (No acute cardiopulmonary process. Asymmetric persistent alveolar infiltration left greater than right no improvement or worsening from last chest x-ray.) PD Medical Decision Making - ED course ED course: This is a complex ill-appearing 78-year-old male with a multitude of morbidities presenting to the ER today. Dr. Freeman, infectious disease doctor with [facility] called and recommended we do blood cultures, urinalysis, chest x-ray for further evaluation of what is causing patient's white count to increase. Chest x-ray shows no improvement or worsening bilateral alveolar infiltration in comparison to previous checks x-ray. White count has not significantly increased since yesterday. White count originally with Dr. Freeman was 14 and has increased today to 18.9. CRP also trending up was originally 6 it is now 29. Procalcitonin was found to be unremarkable. Urinalysis does not show any signs or symptoms of infection BUN is elevated at 3 9 with a creatinine of 1.0. BNP slightly elevated at 322 given patient is requiring more oxygen I do believe patient is experiencing a component of CHF exacerbation. Per the request of Dr. Freeman CT without con was completed of patient's left lower extremity and it does appear that patient is a developing early signs of abscess phlegmon seen on CT. Dr. Freeman is recommending an antibiotic change as may be the daptomycin is causing some CHF exacerbation and so we will discontinue daptomycin and start patient on IV doxycycline and continue IV meropenem. He is to receive 2 g IV meropenem every 8 hours and 100 mg doxycycline twice a day IV. He was given 40 mg IV Lasix in the emergency department for a CHF exacerbation. I had a lengthy conversation with patient's via telephone she has quite good insight into what is going on with the patient although she was unaware that he is having a new exacerbation of CHF and she said that she was unaware that his heart would need to be strong enough to sustain surgery if he were to go through with left lower extremity BKA. Patient has an appointment with Dr. Yeager, vascular surgeon with [facility] in [place] on Sunday and patient's is hoping to get him diuresed enough and get his heart improved enough to at the very least make the appointment with Dr. Yeager to see if patient is even eligible candidate to have a left BKA. Patient is DNR he does have an ICD. I have given report to Dr. Fuentes in the emergency department as we are currently awaiting hospitalist to give report to possibly accept patient here at [facility]. Departure - Departure Disposition: 66 [facility] DC/Xfer Clinical Impression: CHF exacerbation Forms: PCP List
[2023-11-09] MEDS: FUROSEMIDE 40 MG/4 ML VIAL IVP STA (22:11)
[2023-11-09] MEDS: DOXYCYCLINE 100 MG TABLET PO STA (22:11)
[2023-11-09] MEDS: MEROPENEM 2 GM in SODIUM CHLORIDE 0.9% MINIBAG 100 ML IV STA (22:50)
[2023-11-09] MEDS: DOXYCYCLINE INJ 100 MG in SODIUM CHLORIDE 0.9% MINIBAG 100 ML IV STA ×2 (23:54→23:59)
--- NOTE | 2023-11-10 00:24 | ED Physician Documentation ---
ED Addendum - Addendum Addendum: 11/10/23 00:23 Patient endorsed to me by DYLAN Vee for admission of the patient. I discussed with Dr. Krause who will admit the patient for gentle diuresis and IV antibiotics. Impression 1 lower extremity phlegmon 2 CHF exacerbation 3 hypoxia Disposition admit Condition stable
[2023-11-10] MEDS ORDERED: HYDROcod/ACETAM 5/325 MG TABLET PO PRN (00:36)
[2023-11-10] MEDS ORDERED: ACETAMINOPHEN 325 MG TABLET PO PRN ×2 (00:36→23:12)
[2023-11-10] MEDS ORDERED: ONDANSETRON ODT 4 MG TABLET TL PRN (00:36)
[2023-11-10] MEDS ORDERED: ONDANSETRON 4 MG/2 ML VIAL IVP PRN (00:36)
[2023-11-10] MEDS ORDERED: IPRATROPIUM/ALBUTEROL 3 ML NEB INH PRN (00:43)
--- NOTE | 2023-11-10 00:55 | HISTORY & PHYSICAL EXAMINATION ---
Chief Complaint - Chief Complaint Chief Complaint: Elevated WBC History of Present Illness - Admitted From Admitted From:: ED - History Obtained From History obtained from: ED physician - History of Present Illness HPI Comment/Other: Mr. Metzger is a 78 yo gentleman with a history of CAD, PVD, right BKA, LLE chronic wound. Patient is followed by ID physician Dr. Mary Freeman. History was obtained from reviewing patient records and ED physician Dr. Fuentes. Patient was unable to provide history due to respiratory status. who was present earlier was not at bedside during my evaluation. Per reports, patient had routine labwork obtained by his primary ID physician. He was advised to come to the ED for adjustments to his antibiotic regimen as he had an increase of his WBC from 14-19. He also had an elevated ESR. He was afebrile. He also noted to be slightly confused. He has chronic respiratory failure and was hypoxic on his baseline 2L. Chest xray was negative for infiltrates. Family denied cough or recent sick contacts. He did not have chest pain. Patient was started on Doxycycline and Merrem per ID recommendations. Hospitalist service was asked to admit for monitoring. I performed this visit utilizing real-time Telehealth equipment, including the use of live video connection between my home location and the patient's hospital room located at [facility]. History - Past Medical History Cardiovascular: reports: Congestive heart failure, Hypertension, High cholesterol, Coronary artery disease, Peripheral Vascular Disease, MS, Atrial fibrillation Respiratory: reports: Shortness of breath, Other Neuro: reports: Dementia Endocrine/Autoimmune: reports: Type 2 diabetes GI: reports: None, Other : reports: Benign prostate hypertrophy, Nocturia HEENT: reports: None Psych: reports: Anxiety Musculoskeletal: reports: Fatigue, Other Derm: reports: Other MRSA Hx?: Yes - Past Surgical History General: reports: Colonoscopy Ortho: reports: Amputation, Other Cardiovascular: reports: Pacemaker, AICD - Family & Social History Family History: Mother: (father 79 mother 70, has a daughter but is estranged. ), Father: Family History Comment/Other: Mother and father both had arterial sclerosis that was severe with hypertension. Dad at age 79, mom at age 70. 1 brother was developmentally delayed his entire life and of sepsis 2 years ago. He has 2 daughters who live in the [facility] and he is estranged from them and his thinks they are healthy Living Situation: With spouse/s.o. 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 Is on numerous albums from the 1960s and s. 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 He his first . they had 2 children. He reconnected with his middle school sweetheart from 6 grade and her and they have been for 26 years. She has 3 sons. But only 2 of them are in their life. 1 son lives on the property and helps on a daily basis.He never smoked. Has no history of alcohol abuse. laughs and says that is a surprise considering what he did in the and for living. - Substance History Use: Uses substance without health or social issues: NONE - POLST Patient has POLST: Yes POLST Status: DNR Meds/Allgy - Home Medications Home Medications: Ambulatory Orders Medication Instructions Recorded Confirmed Losartan [Cozaar] 75 mg PO DAILY 04/03/17 11/09/23 Clopidogrel Bisulfate [Plavix] 75 mg PO DAILY 08/11/22 11/09/23 Donepezil HCl [Donepezil HCl Odt] 10 mg PO QPM 08/11/22 11/09/23 Memantine HCl [Namenda Xr] 14 mg PO DAILY 08/11/22 11/09/23 Atorvastatin Calcium 40 mg PO QPM 10/06/23 11/09/23 Cholecalciferol (Vitamin D3) 25 mcg PO DAILY 10/06/23 11/09/23 [Vitamin D3] Metoprolol Tartrate [Lopressor] 50 mg PO BID 10/06/23 11/09/23 Sertraline [Zoloft] 50 mg PO DAILY 10/06/23 11/09/23 Spironolactone [Aldactone] 25 mg PO DAILY 10/06/23 11/09/23 Tamsulosin [Flomax] 0.4 mg PO QPM 10/06/23 11/09/23 buPROPion HCL [Bupropion Xl] 150 mg PO DAILY 10/06/23 11/09/23 Furosemide [Lasix] 40 mg PO DAILY #30 tablet 10/12/23 11/09/23 QUEtiapine [SEROquel] 25 mg PO QPM 30 Days #30 tab 10/12/23 11/09/23 amLODIPine [Norvasc] 10 mg PO DAILY #30 tab 10/12/23 11/09/23 hydroCHLOROthiazide [Hydrodiuril] 12.5 mg PO DAILY 30 Days #30 cap 10/12/23 11/09/23 Acetaminophen [Tylenol] 650 mg PO Q4HR PRN 11/09/23 11/09/23 DAPTOmycin in 0.9 % sod chlor 672 mg IV DAILY 11/09/23 11/09/23 [Daptomycin 700 mg/100Ml-Ns Bag] Ferrous Sulfate 325 mg PO DAILY 11/09/23 11/09/23 Meropenem 2 gm IV Q8HR 11/09/23 11/09/23 Ondansetron HCl 4 mg PO Q6HR PRN 11/09/23 11/09/23 Warfarin Sodium [Coumadin] 3 mg PO HS 11/09/23 11/09/23 Warfarin Sodium [Jantoven] 4 mg PO HS 11/09/23 11/09/23 - Allergies Allergies/Adverse Reactions: Allergies Allergy/AdvReac Type Severity Reaction Status Date / Time levofloxacin Allergy Unknown Verified 11/04/23 18:48 Review of Systems - All Other Systems All Other Systems: reports: Reviewed and negative Exam - Vital Signs Reviewed Vital Signs: Yes Vital Signs: Vital Signs x48h Pulse Resp BP Pulse Ox O2 Flow Rate 11/10/23 00:00 78 23 143/57 H 93 11/09/23 23:00 73 24 148/58 H 95 11/09/23 21:00 77 23 148/56 H 91 L 11/09/23 19:00 74 28 H 147/60 H 95 11/09/23 17:33 74 26 H 152/54 H 96 8 - Physical Exam General Appearance: positive: Moderate distress, Anxious Respiratory: negative: Chest non-tender, No respiratory distress Cardiovascular: positive: Regular rate & rhythm Skin: positive: Color nml, No rash, Warm, Dry, Other (chronic wound of left heel) Extremities: positive: Non-tender, Full ROM, Other (right BKA) Neurologic/Psychiatric: positive: Other (Disoriented) Conclusion/Plan - Problem List (1) Chronic wound of extremity Conclusion/Plan: -ischemic wound, non-healing -followed by Dr. Mary Freeman -elevated inflammatory markers: wbc and esr -empiric antibiotic initiated per recommendation: Doxycycline 100mg BID, Merrem 1gm q8h -Further evalaution by wound care team may be warranted prior to discharge. -Record reviewed: Imaging with known Phlegmon present. (2) Acute respiratory failure with hypoxia Conclusion/Plan: -etiology uncertain -chest xray negative for infiltrates, infection less likely. Pulmonary edema not excluded. s/p Lasix given in ED during triage -follow up chest xray, on antibiotics -duonebs, incentive spirometry -continue with fluid and sodium restricition -Records reviewed: ECHO - EF 60% (3) A-fib Conclusion/Plan: -Monitor on telemetry -will review home regimen and resume as tolerated. (4) Diabetes Conclusion/Plan: -monitor with acuchecks. cover with sliding scale insulin as needed -hypoglycemia protocol initiated. - Lab Results Fish Bones: 11/09/23 15:40 11/09/23 15:40 Telemedicine Consult Details - Provider Location & Consult Time Telemedicine consultation conducted via videoconferencing?: Yes List names and roles of persons who participated in consult:: Gina-ED dia Metzger-patient Telemedicine provider location:: Ruel Sloan MD
[2023-11-10] MEDS: SODIUM CHLORIDE FLUSH 0.9% 10 ML SYRINGE IVP SCH (01:30)
[2023-11-10] MEDS: MORPHINE 2 MG/ML CARPUJECT IVP PRN (04:20)
[2023-11-10 06:28] LABS: CALCIUM 8.7 mg/dL (8.5-10.3); CREATININE 0.9 mg/dL (0.6-1.3); POTASSIUM 3.1 mmol/L (3.5-4.5)
[2023-11-10] MEDS ORDERED: MEMANTINE HCL 14 MG PO SCH (09:00)
[2023-11-10] MEDS: MEROPENEM 1 GM in SODIUM CHLORIDE 0.9% MINIBAG 100 ML IV SCH (09:06)
[2023-11-10] MEDS: INSULIN LISPRO 300 UNIT/3 ML PEN SUBQ SCH (09:58)
[2023-11-10] MEDS: DOXYCYCLINE INJ 100 MG in SODIUM CHLORIDE 0.9% MINIBAG 100 ML IV SCH (10:01)
[2023-11-10] MEDS: hydroCHLOROthiazide 12.5 MG CAPSULE PO SCH (10:03)
[2023-11-10] MEDS: SERTRALINE 50 MG TABLET PO SCH (10:03)
[2023-11-10] MEDS: SPIRONOLACTONE 25 MG TABLET PO SCH (10:03)
[2023-11-10] MEDS: FUROSEMIDE 40 MG/4 ML VIAL IVP SCH (10:03)
[2023-11-10] MEDS: buPROPion XL 150 MG TABLET PO SCH (10:03)
[2023-11-10] MEDS: SODIUM CHLORIDE FLUSH 0.9% 10 ML SYRINGE IVP PRN (10:04)
[2023-11-10] MEDS: POTASSIUM CHLORIDE 20 MEQ TABLET PO ONE (10:46)
[2023-11-10] MEDS: MEMANTINE 5 MG TABLET PO SCH (10:48)
--- NOTE | 2023-11-10 13:40 | PHARMACY PROGRESS NOTE ---
- Best Possible Medication History Admit Date and Time: 11/10/23 0036 Processed by: Pharmacy Medication History completed: Yes Patient Interview: Completed Secondary Source(s): Spouse/Significant other (completed with insurance records, spouse interview and spouse provided chronic med list, spouse states current warfarin dose is 5mg), Pharmacy records, Insurance records As the person ultimately responsible for medication therapy, providers are able to order a medication from an existing home medication list in [facility] via the "Reconcile Routine" prior to Confirmation of that medication by business support professional. Such practice is discouraged except when the physician, in their clinical judgment, deems that a medical need exists for a medication without regard to previous use.
--- NOTE | 2023-11-10 18:39 | PROVIDER PROGRESS NOTE ---
Subjective - Prog Note Date Prog Note Date: 11/10/23 Prog Note Time: 18:37 - Subjective Subjective: No acute events overnight however the patient does report still feeling "miserable". His oxygen needs have fluctuated from 3 to 4 L up to as high as 8 L. He has been afebrile and denies having any cough or chest pain. Denies having any vomiting though he has not been having much of an appetite. Current Medications - Current Medications Current Medications: Current Medications Generic Name Dose Route Start Last Admin Trade Name Freq PRN Reason Stop Dose Admin Bupropion HCl 150 mg 11/10/23 09:00 11/10/23 10:03 Bupropion Xl 150 Mg Tablet PO 150 mg DAILY MIKEY Administration Furosemide 40 mg 11/10/23 09:00 11/10/23 10:03 Furosemide 40 Mg/4 Ml Vial IVP 40 mg BID MIKEY Administration Hydrochlorothiazide 12.5 mg 11/10/23 09:00 11/10/23 10:03 Hydrochlorothiazide 12.5 Mg Capsule PO 12.5 mg DAILY MIKEY Administration Doxycycline Hyclate 100 mg/ 100 mls @ 100 mls/hr 11/10/23 09:00 11/10/23 11:05 Sodium Chloride IV Infused BID MIKEY Infusion Meropenem 1 gm/ Sodium 100 mls @ 200 mls/hr 11/10/23 08:00 11/10/23 15:32 Chloride IV Infused Q8H MIKEY Infusion Insulin Human Lispro 0 unit 11/10/23 08:00 11/10/23 16:39 Insulin Lispro 300 Unit/3 Ml Pen SUBQ Not Given 0800,1200,1600,2100 [facility] Protocol Memantine 7.5 mg 11/10/23 10:00 11/10/23 10:48 Memantine 5 Mg Tablet PO 7.5 mg BID MIKEY Administration Morphine Sulfate 2 mg 11/10/23 00:36 11/10/23 04:20 Morphine 2 Mg/Ml Carpuject IVP 2 mg Q4HR PRN Administration Pain 8 to 10 Sertraline HCl 50 mg 11/10/23 09:00 11/10/23 10:03 Sertraline 50 Mg Tablet PO 50 mg DAILY MIKEY Administration Sodium Chloride 10 ml 11/10/23 00:36 11/10/23 15:02 Sodium Chloride Flush 0.9% 10 Ml Syringe IVP 10 ml PRN PRN Administration NEEDED PER PROVIDER ORDERS Sodium Chloride 10 ml 11/10/23 01:00 11/10/23 15:54 Sodium Chloride Flush 0.9% 10 Ml Syringe IVP 10 ml 0100,0900,1700 MIKEY Administration Spironolactone 25 mg 11/10/23 09:00 11/10/23 10:03 Spironolactone 25 Mg Tablet PO 25 mg DAILY MIKEY Administration Objective - Vital Signs/Intake & Output Reviewed Vital Signs: Yes Vital Signs: Vital Signs x48h Temp Pulse Resp BP BP Pulse Ox O2 Flow Rate 11/10/23 15:47 36.7 C 74 20 142/57 H 94 12 11/10/23 13:22 36.8 C 70 20 141/66 H 93 12 Intake & Output: Intake & Output 11/07/23 11/08/23 11/09/23 11/10/23 23:59 23:59 23:59 23:59 Intake Total 100 400 Output Total 300 Balance 100 100 - Objective General Appearance: positive: Other (No active distress, but looks acutely and chronically ill. Looks older than stated age.) Eyes Bilateral: positive: Normal inspection, PERRL, EOMI ENT: positive: ENT inspection nml, Dry mucous membranes Neck: positive: Nml inspection, Thyroid nml, Trachea midline Respiratory: positive: Other (Mild respiratory distress, fair air movement bilaterally, no wheezing but scattered rales and rhonchi more prominent in the left lung.) Cardiovascular: positive: Regular rate & rhythm, No gallop, Systolic murmur (soft 2/6 systolic murmur at RUSB) Abdomen: positive: Non-tender, No organomegaly, Nml bowel sounds, No distention Extremities: positive: Non-tender, Other (Right BKA noted. Left posterior heel with large ulcer and black eschar covering wound. No purulent drainage.) Neurologic/Psychiatric: positive: CN's nml (2-12), Motor nml, Other (Oriented to person but not place or date/year) - Lab Results Fish Bones: 11/09/23 15:40 11/10/23 05:41 Other Labs: Lab Results x24hrs 11/10/23 11/10/23 11/10/23 Range/Units 16:34 11:17 07:34 Sodium (135-145) mmol/L Potassium (3.5-4.5) mmol/L Chloride (101-111) mmol/L Carbon Dioxide (21-32) mmol/L Anion Gap (6-13) BUN (6-20) mg/dL Creatinine (0.6-1.3) mg/dL Estimated GFR (MDRD) (>89) Glucose (74-104) mg/dL POC Whole Bld Glucose 102 H 87 95 (70 - 100) mg/dL Fasting Glucose (74-104) mg/dL Calcium (8.5-10.3) mg/dL Urine Color Urine Clarity (CLEAR) Urine pH (5.0-7.5) PH Ur Specific [place] (1.002-1.030) Urine Protein (NEGATIVE) mg/dL Urine Glucose (UA) (NEGATIVE) mg/dL Urine Ketones (NEGATIVE) mg/dL Urine Occult Blood (NEGATIVE) Urine Nitrite (NEGATIVE) Urine Bilirubin (NEGATIVE) Urine Urobilinogen (NORMAL) E.U./dL Ur Leukocyte Esterase (NEGATIVE) Urine RBC (0-5) /HPF Urine WBC (0-3) /HPF Ur Squamous Epith Cells (<= Few) Urine Bacteria (None Seen) /HPF Urine Casts /LPF Ur Microscopic Review Urine Culture Comments 11/10/23 11/10/23 11/09/23 Range/Units 05:41 02:13 20:00 Sodium 142 (135-145) mmol/L Potassium 3.1 L (3.5-4.5) mmol/L Chloride 104 (101-111) mmol/L Carbon Dioxide 30 (21-32) mmol/L Anion Gap 8.0 (6-13) BUN 34 H (6-20) mg/dL Creatinine 0.9 (0.6-1.3) mg/dL Estimated GFR (MDRD) 82 L (>89) Glucose 96 (74-104) mg/dL POC Whole Bld Glucose (70 - 100) mg/dL Fasting Glucose 104 (74-104) mg/dL Calcium 8.7 (8.5-10.3) mg/dL Urine Color YELLOW Urine Clarity CLEAR (CLEAR) Urine pH 6.0 (5.0-7.5) PH Ur Specific [place] 1.025 (1.002-1.030) Urine Protein 100 H (NEGATIVE) mg/dL Urine Glucose (UA) NEGATIVE (NEGATIVE) mg/dL Urine Ketones NEGATIVE (NEGATIVE) mg/dL Urine Occult Blood LARGE H (NEGATIVE) Urine Nitrite NEGATIVE (NEGATIVE) Urine Bilirubin NEGATIVE (NEGATIVE) Urine Urobilinogen 0.2 (NORMAL) (NORMAL) E.U./dL Ur Leukocyte Esterase NEGATIVE (NEGATIVE) Urine RBC 6-10 H (0-5) /HPF Urine WBC 0-3 (0-3) /HPF Ur Squamous Epith Cells FEW Squamous (<= Few) Urine Bacteria Rare (None Seen) /HPF Urine Casts 0-2 Fine Granular /LPF Ur Microscopic Review INDICATED Urine Culture Comments NOT INDICATED - Diagnostic Imaging Diagnostic Imaging Results: positive: Final report reviewed ABX Reporting Has patient been on IV antibiotics over the past 48 hours?: Yes Sepsis Event Note (H) - Evaluation Current Stage of Sepsis: Ruled out Assessment/Plan - Problem List (1) Chronic wound of extremity Impression: Patient has a 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 He follows with Dr. Mary Freeman and infectious disease and has been receiving empiric antibiotics as an outpatient. -CT scan on presentation showed phlegmon changes around the Achilles tendon but no drainable abscess. -Continue IV meropenem 1 g every 8 hours and IV doxycycline 100 mg twice daily per ID recommendations. -Given the patient's multiple medical conditions, the patient's is entertaining hospice evaluation. I feel that this is appropriate as he would likely pass away in less than 1 year given the progression of his various m edical conditions. (2) Acute respiratory failure with hypoxia Impression: He is currently residing at a local SNF and has been requiring up to 2 L of oxygen intermittently. His acute worsening may be due to pulmonary edema/CHF versus a possible underlying interstitial pneumonia. He does not appear to have bacterial or viral pneumonia at this time. -Continue supplemental oxygen to maintain saturations greater than 90%. -Placed on 40 mg IV Lasix twice daily. -Encourage incentive spirometer. (3) A-fib Impression: -Will need to reinitiate warfarin once it is clear he does not require procedure. -Check INR. -Resume metoprolol 50 mg twice daily. Qualifiers: Atrial fibrillation type: longstanding persistent Qualified Code(s): I48.11 - Longstanding persistent atrial fibrillation (4) Diabetes Impression: -.Placed on sliding scale insulin. Adjust as indicated Qualifiers: Diabetes mellitus type: type 2 Diabetes mellitus termite renewal inspector insulin use: without penitentiary use Diabetes mellitus complication status: with circulatory complication Diabetes mellitus complication detail: with peripheral angiopathy without gangrene Qualified Code(s): E11.51 - Type 2 diabetes mellitus with d iabetic peripheral angiopathy without gangrene (5) Chronic dementia Impression: Labeled as having vascular dementia in the past however the patient's is not certain of this diagnosis. -He does appear to have memory issues in the recent hospitalizations thus he likely does have some underlying dementia that may be exacerbated by delirium at times. -No acute issues at this time. (6) PVD (peripheral vascular disease) Impression: He follows with a vascular surgeon in [place] with an appointment scheduled for this coming Sunday. He has a history of right BKA and the was wanting to think about having a left BKA. -Given his current deconditioning along with recurrent acute hypoxic respiratory failure, he is not a good surgical candidate. -Patient's is understanding of his current status and prognosis. -The patient's is discussing with hospice today to assess options and possibly enroll into hospice after this hospitalization. -Resume clopidogrel
[2023-11-10] MEDS: DONEPEZIL 5 MG TABLET PO SCH (21:20)
[2023-11-10] MEDS: QUEtiapine 25 MG TABLET PO SCH (21:21)
[2023-11-10] MEDS: METOPROLOL TARTRATE 50 MG TABLET PO SCH (21:22)
[2023-11-11] MEDS: METOPROLOL TARTRATE 50 MG TABLET PO SCH (02:27)
[2023-11-11 06:18] LABS: CALCIUM 8.9 mg/dL (8.5-10.3); CREATININE 0.9 mg/dL (0.6-1.3); POTASSIUM 3.2 mmol/L (3.5-4.5)
--- NOTE | 2023-11-11 07:59 | PROVIDER PROGRESS NOTE ---
Subjective - Prog Note Date Prog Note Date: 11/11/23 Prog Note Time: 07:59 - Subjective Subjective: No acute events overnight however the patient does remain on 12 L of oxygen. is leaning towards enrolling into hospice care and would like to have a referral sent to hospice. The patient himself denies any significant complaints at this time though he does report some shortness of breath. He has a cough that is difficult to expectorate sputum. Denies any chest pain, vomiting, diarrhea. Current Medications - Current Medications Current Medications: Acetaminophen (Acetaminophen 325 Mg Tablet) 650 mg PO Q4HR PRN PRN Reason: Pain 1 to 4, or Fever Acetaminophen (Acetaminophen 325 Mg Tablet) 650 mg PO Q4HR PRN PRN Reason: PRN PAIN &/OR FEVER Hydrocodone Bitart/Acetaminophen (Hydrocod/Acetam 5/325 Mg Tablet) 1 tab PO Q4HR PRN PRN Reason: Pain 5 to 7 Albuterol/Ipratropium (Ipratropium/Albuterol 3 Ml Neb) 3 ml INH Q4HR PRN PRN Reason: Wheezing Bupropion HCl (Bupropion Xl 150 Mg Tablet) 150 mg PO DAILY [facility] Last Admin: 11/10/23 10:03 Dose: 150 mg Buspirone HCl (Buspirone 5 Mg Tablet) 5 mg PO BID [facility] Donepezil HCl (Donepezil 5 Mg Tablet) 10 mg PO QPM [facility] Last Admin: 11/10/23 21:20 Dose: 10 mg Furosemide (Furosemide 40 Mg/4 Ml Vial) 40 mg IVP BID [facility] Last Admin: 11/10/23 21:21 Dose: 40 mg Hydrochlorothiazide (Hydrochlorothiazide 12.5 Mg Capsule) 12.5 mg PO DAILY [facility] Last Admin: 11/10/23 10:03 Dose: 12.5 mg Doxycycline Hyclate 100 mg/ (Sodium Chloride) 100 mls @ 100 mls/hr IV BID [facility] Last Infusion: 11/10/23 22:21 Dose: Infused Meropenem 1 gm/ Sodium (Chloride) 100 mls @ 200 mls/hr IV Q8H [facility] Last Infusion: 11/11/23 03:58 Dose: Infused Insulin Human Lispro (Insulin Lispro 300 Unit/3 Ml Pen) 0 unit SUBQ 0800,1200,1600,2100 [facility]; Protocol Last Admin: 11/10/23 21:38 Dose: 1 unit Memantine (Memantine 5 Mg Tablet) 7.5 mg PO BID [facility] Last Admin: 11/10/23 21:20 Dose: 7.5 mg Metoprolol Tartrate (Metoprolol Tartrate 50 Mg Tablet) 50 mg PO BID [facility] Last Admin: 11/10/23 21:22 Dose: 50 mg Metoprolol Tartrate (Metoprolol Tartrate 50 Mg Tablet) 50 mg PO BID [facility] Last Admin: 11/11/23 02:27 Dose: Not Given Morphine Sulfate (Morphine 2 Mg/Ml Carpuject) 2 mg IVP Q4HR PRN PRN Reason: Pain 8 to 10 Last Admin: 11/10/23 04:20 Dose: 2 mg Ondansetron HCl (Ondansetron 4 Mg/2 Ml Vial) 4 mg IVP Q6HR PRN PRN Reason: Nausea / Vomiting Ondansetron HCl (Ondansetron Odt 4 Mg Tablet) 4 mg TL Q6HR PRN PRN Reason: Nausea / Vomiting Quetiapine Fumarate (Quetiapine 25 Mg Tablet) 25 mg PO QPM [facility] Last Admin: 11/10/23 21:21 Dose: 25 mg Sertraline HCl (Sertraline 50 Mg Tablet) 50 mg PO DAILY [facility] Last Admin: 11/10/23 10:03 Dose: 50 mg Sodium Chloride (Sodium Chloride Flush 0.9% 10 Ml Syringe) 10 ml IVP PRN PRN PRN Reason: NEEDED PER PROVIDER ORDERS Last Admin: 11/10/23 15:02 Dose: 10 ml Sodium Chloride (Sodium Chloride Flush 0.9% 10 Ml Syringe) 10 ml IVP 0100,0900,1700 [facility] Last Admin: 11/11/23 02:28 Dose: 10 ml Spironolactone (Spironolactone 25 Mg Tablet) 25 mg PO DAILY [facility] Last Admin: 11/10/23 10:03 Dose: 25 mg Tamsulosin HCl (Tamsulosin 0.4 Mg Capsule) 0.4 mg PO QPM [facility] Warfarin Sodium (Warfarin 5 Mg Tablet) 5 mg PO DAILY [facility] Zinc Oxide (Cod Liver Oil/Zinc Oxide 113 Gm Tube) 113 gm TOP PRN PRN PRN Reason: Skin Care Objective - Vital Signs/Intake & Output Reviewed Vital Signs: Yes Vital Signs: Vital Signs x48h Temp Pulse Resp BP Pulse Ox O2 Flow Rate 11/11/23 07:34 15 11/11/23 05:00 36.9 C 74 18 175/72 H 92 12 Intake & Output: Intake & Output 11/08/23 11/09/23 11/10/23 11/11/23 23:59 23:59 23:59 23:59 Intake Total 100 1450 100 Output Total 350 Balance 100 1100 100 - Objective General Appearance: positive: No acute distress, Mild distress Eyes Bilateral: positive: Normal inspection, PERRL, EOMI ENT: positive: ENT inspection nml Neck: positive: Nml inspection, Thyroid nml, No JVD, Trachea midline Respiratory: positive: Other (Mild respiratory distress but improved from yesterday. Diminished air movement bilaterally with inspiratory crackles in both posterior lung peres.) Cardiovascular: positive: Regular rate & rhythm, No gallop, Systolic murmur (soft 2/6 systolic murmur at RUSB) Abdomen: positive: Non-tender, No organomegaly, Nml bowel sounds, No distention Extremities: positive: Non-tender, Pedal edema (1+ edema) Neurologic/Psychiatric: positive: CN's nml (2-12), Motor nml, Other (Oriented to person and place but not date/year) - Lab Results Fish Bones: 11/11/23 05:01 11/11/23 05:01 Other Labs: Lab Results x24hrs 11/11/23 11/11/23 11/10/23 Range/Units 07:53 05:01 20:41 Sodium 140 (135-145) mmol/L Potassium 3.2 L (3.5-4.5) mmol/L Chloride 101 (101-111) mmol/L Carbon Dioxide 30 (21-32) mmol/L Anion Gap 9.0 (6-13) BUN 29 H (6-20) mg/dL Creatinine 0.9 (0.6-1.3) mg/dL Estimated GFR (MDRD) 82 L (>89) Glucose 89 (74-104) mg/dL POC Whole Bld Glucose 96 141 H (70 - 100) mg/dL Calcium 8.9 (8.5-10.3) mg/dL 11/10/23 11/10/23 Range/Units 16:34 11:17 Sodium (135-145) mmol/L Potassium (3.5-4.5) mmol/L Chloride (101-111) mmol/L Carbon Dioxide (21-32) mmol/L Anion Gap (6-13) BUN (6-20) mg/dL Creatinine (0.6-1.3) mg/dL Estimated GFR (MDRD) (>89) Glucose (74-104) mg/dL POC Whole Bld Glucose 102 H 87 (70 - 100) mg/dL Calcium (8.5-10.3) mg/dL ABX Reporting Has patient been on IV antibiotics over the past 48 hours?: Yes Sepsis Event Note (H) - Evaluation Current Stage of Sepsis: Ruled out Assessment/Plan - Problem List (1) Chronic wound of extremity Impression: Patient has a 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 He follows with Dr. Mary Freeman in [facility] and has been receiving empiric IV meropenem and daptomycin as an outpatient. -CT scan on presentation showed phlegmon changes around the Achilles tendon but no drainable abscess. -Continue IV meropenem 1 g every 8 hours and IV doxycycline 100 mg twice daily per ID recommendations. -Given the patient's multiple medical conditions, the patient's is entertaining hospice evaluation which I feel is appropriate. A referral to hospice has been made at this time. (2) Acute respiratory failure with hypoxia Impression: Prior to hospitalization he was residing at a local SNF and had been requiring up to 2 L of oxygen intermittently. His acute worsening may be due to pulmonary edema/CHF versus possible underlying interstitial pneumonia, though it is possible that he may have had some diffuse alveolar hemorrhage at some point as he has a history of hemoptysis a couple weeks ago. -No evidence for ongoing hemoptysis. -Continue supplemental oxygen to maintain saturations greater than 90%. -Continue IV Lasix 40 mg twice daily. -Encourage incentive spirometer. (3) Supratherapeutic INR Impression: INR was not checked on admission, this morning it was noted to be elevated at 9.0. He does not have any signs of active bleeding at this time and has no active hemoptysis or concerns for ongoing alveolar hemorrhage, if that is even the cause of his pulmonary disorder. -Will give oral vitamin K. -Hold Coumadin and check daily INR. (4) A-fib Impression: Mostly rate controlled at this time however he does have occasional episodes where he is tachycardic. -Continue metoprolol 50 mg twice daily. -Holding Coumadin as noted above. Follow daily INR. Qualifiers: Atrial fibrillation type: longstanding persistent Qualified Code(s): I48.11 - Longstanding persistent atrial fibrillation (5) Diabetes Impression: Continue sliding scale insulin at this time. Qualifiers: Diabetes mellitus type: type 2 Diabetes mellitus flavoring maker insulin use: without residential use Diabetes mellitus complication status: with circulatory complication Diabetes mellitus complication detail: with peripheral angiopathy without gangrene Qualified Code(s): E11.51 - Type 2 diabetes mellitus with diabetic peripheral angiopathy without gangrene (6) Chronic dementia Impression: Has been labeled as having vascular dementia in the past, though the patient's is not certain of that diagnosis. -Resume home Aricept and Namenda. -No acute issues at this time. (7) PVD (peripheral vascular disease) Impression: He follows with a vascular surgeon in [place] and had an appointment scheduled for tomorrow. -Given his current deconditioning, acute on chronic hypoxic respiratory failure, he is not a good surgical candidate. -The patient's understands this and would like to pursue hospice evaluation. -Hospice evaluation ordered. -No acute vascular compromise at this time, continue home clopidogrel. (8) Hypokalemia Impression: Due to his diuresis. -Placed on scheduled oral potassium but be mindful of his concurrent use of sp ironolactone. -Daily CHEM panels.
[2023-11-11 08:07] LABS: BASOPHILS % (AUTO) 0.2 %; EOSINOPHILS # (AUTO) 2.1 10^3/uL (0.0-0.7); EOSINOPHILS % (AUTO) 13.6 %; HCT - HEMATOCRIT 33.3 % (42.0-52.0); HGB - HEMOGLOBIN 10.4 g/dL (14.0-18.0); LYMPHOCYTES # (AUTO) 1.1 10^3/uL (1.5-3.5); LYMPHOCYTES % (AUTO) 6.9 %; MEAN CORPUSCULAR HEMOGLOBIN 30.1 pg (27.0-31.0); MEAN CORPUSCULAR HGB CONC 31.2 g/dL (32.0-36.0); MEAN CORPUSCULAR VOLUME 96.2 fL (80.0-94.0); MEAN PLATELET VOLUME 11.3 fL (7.4-11.4); MONOCYTES # (AUTO) 0.9 10^3/uL (0.0-1.0); MONOCYTES % (AUTO) 5.5 %; NEUTROPHILS # (AUTO) 11.3 10^3/uL (1.5-6.6); NEUTROPHILS % (AUTO) 72.9 %; PLT - PLATELET COUNT 240 10^3/uL (130-450); RED BLOOD COUNT 3.46 10^6/uL (4.70-6.10); RED CELL DISTRIBUTION WIDTH 13.7 % (12.0-15.0); WHITE BLOOD COUNT 15.6 x10^3/uL (4.8-10.8)
[2023-11-11 08:12] LABS: SLIDE REVIEW? Indicated
[2023-11-11 08:22] LABS: PT - PROTHROMBIN TIME 87.8 secs (9.9-12.6)
[2023-11-11 08:33] LABS: PLATELET ESTIMATE, MANUAL NORMAL (130-450,000) (NORMAL); PLATELET MORPHOLOGY NORMAL APPEARANCE (NORMAL); RBC MORPHOLOGY (MULTIPLE) NORMAL APPEARANCE (NORMAL); WBC MORPHOLOGY (MULTIPLE) NORMAL APPEARANCE (NORMAL)
[2023-11-11] MEDS ORDERED: SODIUM CHLORIDE 0.9% MINIBAG 100 ML IV ONE (08:34)
[2023-11-11] MEDS: POTASSIUM CHLORIDE 20 MEQ TABLET PO ONE (08:50)
[2023-11-11] MEDS: busPIRone 5 MG TABLET PO SCH (08:50)
[2023-11-11] MEDS: COD LIVER OIL/ZINC OXIDE 113 GM TUBE TOP PRN (08:53)
[2023-11-11] MEDS: PHYTONADIONE 10 MG/ML AMP PO ONE ×2 (09:55→09:56)
[2023-11-11] MEDS: CHERRY SYRUP 10 ML UDC PO ONE (09:55)
[2023-11-11] MEDS ORDERED: WARFARIN 5 MG TABLET PO SCH (12:00)
[2023-11-11] MEDS: TAMSULOSIN 0.4 MG CAPSULE PO SCH (20:45)
[2023-11-12 05:40] LABS: BASOPHILS % (AUTO) 0.2 %; EOSINOPHILS % (AUTO) 12.8 %; HCT - HEMATOCRIT 31.8 % (42.0-52.0); HGB - HEMOGLOBIN 10.3 g/dL (14.0-18.0); LYMPHOCYTES % (AUTO) 6.1 %; MEAN CORPUSCULAR HGB CONC 32.4 g/dL (32.0-36.0); MEAN CORPUSCULAR VOLUME 92.7 fL (80.0-94.0); MEAN PLATELET VOLUME 9.9 fL (7.4-11.4); MONOCYTES % (AUTO) 5.2 %; NEUTROPHILS % (AUTO) 74.9 %; PLT - PLATELET COUNT 268 10^3/uL (130-450); RED BLOOD COUNT 3.43 10^6/uL (4.70-6.10); RED CELL DISTRIBUTION WIDTH 13.5 % (12.0-15.0); WHITE BLOOD COUNT 16.9 x10^3/uL (4.8-10.8)
[2023-11-12 05:53] LABS: CALCIUM 9.1 mg/dL (8.5-10.3); CREATININE 0.9 mg/dL (0.6-1.3); POTASSIUM 3.2 mmol/L (3.5-4.5)
[2023-11-12 06:16] LABS: INR 1.8 (0.8-1.2); PT - PROTHROMBIN TIME 18.7 secs (9.9-12.6)
[2023-11-12 06:57] LABS: ABNORMAL LYMPHS % (MANUAL) 0 %; BAND NEUTROPHILS % (MANUAL) 0 %
[2023-11-12 07:04] LABS: LYMPHOCYTES # (MANUAL) 1.7 10^3/uL (1.5-3.5); LYMPHOCYTES % (MANUAL) 10 %; MONOCYTES # (MANUAL) 0.7 10^3/uL (0.0-1.0); NEUTROPHILS # (MANUAL) 11.5 10^3/uL (1.5-6.6)
[2023-11-12 07:05] LABS: DIFFERENTIAL COMMENT MANUAL DIFFERENTIAL; PLATELET ESTIMATE, MANUAL NORMAL (130-450,000) (NORMAL); PLATELET MORPHOLOGY NORMAL APPEARANCE (NORMAL); RBC MORPHOLOGY (MULTIPLE) NORMAL APPEARANCE (NORMAL)
--- NOTE | 2023-11-12 07:42 | PROVIDER PROGRESS NOTE ---
Subjective - Prog Note Date Prog Note Date: 11/12/23 Prog Note Time: 07:42 - Subjective Subjective: No acute events overnight. This morning the patient reports he feels okay and a bit better than yesterday. He does remain hypoxic on 10 to 12 L of oxygen though. The patient denies any chest pain and has had a mild nonproductive cough. Remains afebrile and has had no bleeding complications or hemoptysis while hospitalized. Denies any chest pain, nausea or vomiting. He remains disoriented which is similar to his baseline, and he does not recall what year it is or where he is located. Current Medications - Current Medications Current Medications: Acetaminophen (Acetaminophen 325 Mg Tablet) 650 mg PO Q4HR PRN PRN Reason: Pain 1 to 4, or Fever Acetaminophen (Acetaminophen 325 Mg Tablet) 650 mg PO Q4HR PRN PRN Reason: PRN PAIN &/OR FEVER Hydrocodone Bitart/Acetaminophen (Hydrocod/Acetam 5/325 Mg Tablet) 1 tab PO Q4HR PRN PRN Reason: Pain 5 to 7 Albuterol/Ipratropium (Ipratropium/Albuterol 3 Ml Neb) 3 ml INH Q4HR PRN PRN Reason: Wheezing Bupropion HCl (Bupropion Xl 150 Mg Tablet) 150 mg PO DAILY [facility] Last Admin: 11/11/23 08:50 Dose: 150 mg Buspirone HCl (Buspirone 5 Mg Tablet) 5 mg PO BID [facility] Last Admin: 11/11/23 20:46 Dose: 5 mg Donepezil HCl (Donepezil 5 Mg Tablet) 10 mg PO QPM [facility] Last Admin: 11/11/23 20:45 Dose: 10 mg Furosemide (Furosemide 40 Mg/4 Ml Vial) 40 mg IVP BID [facility] Last Admin: 11/11/23 21:02 Dose: 40 mg Hydrochlorothiazide (Hydrochlorothiazide 12.5 Mg Capsule) 12.5 mg PO DAILY [facility] Last Admin: 11/11/23 08:48 Dose: 12.5 mg Doxycycline Hyclate 100 mg/ (Sodium Chloride) 100 mls @ 100 mls/hr IV BID [facility] Last Infusion: 11/11/23 21:48 Dose: Infused Meropenem 1 gm/ Sodium (Chloride) 100 mls @ 200 mls/hr IV Q8H [facility] Last Infusion: 11/12/23 00:38 Dose: Infused Insulin Human Lispro (Insulin Lispro 300 Unit/3 Ml Pen) 0 unit SUBQ 0800,1200,1600,2100 [facility]; Protocol Last Admin: 11/12/23 07:33 Dose: Not Given Memantine (Memantine 5 Mg Tablet) 7.5 mg PO BID [facility] Last Admin: 11/11/23 20:46 Dose: 7.5 mg Metoprolol Tartrate (Metoprolol Tartrate 50 Mg Tablet) 50 mg PO BID [facility] Last Admin: 11/11/23 21:01 Dose: 50 mg Morphine Sulfate (Morphine 2 Mg/Ml Carpuject) 2 mg IVP Q4HR PRN PRN Reason: Pain 8 to 10 Last Admin: 11/10/23 04:20 Dose: 2 mg Ondansetron HCl (Ondansetron 4 Mg/2 Ml Vial) 4 mg IVP Q6HR PRN PRN Reason: Nausea / Vomiting Ondansetron HCl (Ondansetron Odt 4 Mg Tablet) 4 mg TL Q6HR PRN PRN Reason: Nausea / Vomiting Potassium Chloride (Potassium Ch[facility]ide 20 Meq Tablet) [facility] Quetiapine Fumarate (Quetiapine 25 Mg Tablet) 25 mg PO QPM [facility] Last Admin: 11/11/23 20:46 Dose: 25 mg Sertraline HCl (Sertraline 50 Mg Tablet) 50 mg PO DAILY [facility] Last Admin: 11/11/23 08:48 Dose: 50 mg Sodium Chloride (Sodium Chloride Flush 0.9% 10 Ml Syringe) 10 ml IVP PRN PRN PRN Reason: NEEDED PER PROVIDER ORDERS Last Admin: 11/10/23 15:02 Dose: 10 ml Sodium Chloride (Sodium Chloride Flush 0.9% 10 Ml Syringe) 10 ml IVP 0100,0900,1700 [facility] Last Admin: 11/12/23 00:07 Dose: 10 ml Spironolactone (Spironolactone 25 Mg Tablet) 25 mg PO DAILY [facility] Last Admin: 11/11/23 08:50 Dose: 25 mg Tamsulosin HCl (Tamsulosin 0.4 Mg Capsule) 0.4 mg PO QPM [facility] Last Admin: 11/11/23 20:45 Dose: 0.4 mg Zinc Oxide (Cod Liver Oil/Zinc Oxide 113 Gm Tube) 113 gm TOP PRN PRN PRN Reason: Skin Care Last Admin: 11/11/23 21:08 Dose: 1 applic Objective - Vital Signs/Intake & Output Reviewed Vital Signs: Yes Intake & Output: Intake & Output 11/09/23 11/10/23 11/11/23 11/12/23 23:59 23:59 23:59 23:59 Intake Total 100 1450 890 200 Output Total 350 150 Balance 100 1100 890 50 - Objective General Appearance: positive: Other (Alert, appears in mild distress though better than yesterday. Appears chronically ill. Disoriented to place/date/situation.) Eyes Bilateral: positive: Normal inspection, PERRL, EOMI ENT: positive: ENT inspection nml, No signs of dehydration Neck: positive: Nml inspection, Thyroid nml, Trachea midline Respiratory: positive: Other (Mild tachypnea but not using accessory muscles. Diminished air movement bilaterally with inspiratory crackles in both posterior lung peres) Cardiovascular: positive: Regular rate & rhythm, No gallop, Systolic murmur (soft 2/6 systolic murmur at RUSB) Abdomen: positive: Non-tender, No organomegaly, Nml bowel sounds, No distention Skin: positive: Warm, Dry Extremities: positive: Nml appearance, Pedal edema (1+ edema) Neurologic/Psychiatric: positive: CN's nml (2-12), Motor nml, Other (Alert but disoriented (does not know date/year/location or situation)) - Lab Results Fish Bones: 11/12/23 05:00 11/12/23 05:00 Other Labs: Lab Results x24hrs 11/12/23 11/12/23 11/12/23 Range/Units 07:23 05:00 05:00 WBC (4.8-10.8) x10^3/uL RBC (4.70-6.10) 10^6/uL Hgb (14.0-18.0) g/dL Hct (42.0-52.0) % MCV (80.0-94.0) fL MCH (27.0-31.0) pg MCHC (32.0-36.0) g/dL RDW (12.0-15.0) % Plt Count (130-450) 10^3/uL MPV (7.4-11.4) fL Neut # (Auto) (1.5-6.6) 10^3/uL Lymph # (Auto) (1.5-3.5) 10^3/uL Rosebud # (Auto) (0.0-1.0) 10^3/uL Eos # (Auto) (0.0-0.7) 10^3/uL Baso # (Auto) (0.0-0.1) 10^3/uL Absolute Nucleated RBC x10^3/uL Total Counted Band Neuts % (Manual) (0 - 10) % Abnorm Lymph % (Manual) % Nucleated RBC % /100WBC Neutrophils # (Manual) (1.5-6.6) 10^3/uL Lymphocytes # (Manual) (1.5-3.5) 10^3/uL Monocytes # (Manual) (0.0-1.0) 10^3/uL Eosinophils # (Manual) (0-0.7) 10^3/uL Basophils # (Manual) (0-0.1) 10^3/uL Differential Comment Manual Slide Review WBC Morphology (NORMAL) Platelet Estimate (NORMAL) Platelet Morphology (NORMAL) RBC Morph Micro Appear (NORMAL) PT 18.7 H (9.9-12.6) secs INR 1.8 H (0.8-1.2) Sodium 140 (135-145) mmol/L Potassium 3.2 L (3.5-4.5) mmol/L Chloride 100 L (101-111) mmol/L Carbon Dioxide 33 H (21-32) mmol/L Anion Gap 7.0 (6-13) BUN 31 H (6-20) mg/dL Creatinine 0.9 (0.6-1.3) mg/dL Estimated GFR (MDRD) 82 L (>89) Glucose 102 (74-104) mg/dL POC Whole Bld Glucose 102 H (70 - 100) mg/dL Calcium 9.1 (8.5-10.3) mg/dL B-Natriuretic Peptide (5-100) pg/mL 11/12/23 11/11/23 11/11/23 Range/Units 05:00 20:50 16:35 WBC 16.9 H (4.8-10.8) x10^3/uL RBC 3.43 L (4.70-6.10) 10^6/uL Hgb 10.3 L (14.0-18.0) g/dL Hct 31.8 L (42.0-52.0) % MCV 92.7 (80.0-94.0) fL MCH 30.0 (27.0-31.0) pg MCHC 32.4 (32.0-36.0) g/dL RDW 13.5 (12.0-15.0) % Plt Count 268 (130-450) 10^3/uL MPV 9.9 (7.4-11.4) fL Neut # (Auto) Not Reportable (1.5-6.6) 10^3/uL Lymph # (Auto) Not Reportable (1.5-3.5) 10^3/uL Rosebud # (Auto) Not Reportable (0.0-1.0) 10^3/uL Eos # (Auto) Not Reportable (0.0-0.7) 10^3/uL Baso # (Auto) Not Reportable (0.0-0.1) 10^3/uL Absolute Nucleated RBC Not Reportable x10^3/uL Total Counted 100 Band Neuts % (Manual) 0 (0 - 10) % Abnorm Lymph % (Manual) 0 % Nucleated RBC % Not Reportable /100WBC Neutrophils # (Manual) 11.5 H (1.5-6.6) 10^3/uL Lymphocytes # (Manual) 1.7 (1.5-3.5) 10^3/uL Monocytes # (Manual) 0.7 (0.0-1.0) 10^3/uL Eosinophils # (Manual) 3.0 H (0-0.7) 10^3/uL Basophils # (Manual) 0.0 (0-0.1) 10^3/uL Differential Comment MANUAL DIFFERENTIAL Manual Slide Review WBC Morphology (NORMAL) Platelet Estimate NORMAL (130-450,000) (NORMAL) Platelet Morphology NORMAL APPEARANCE (NORMAL) RBC Morph Micro Appear NORMAL APPEARANCE (NORMAL) PT (9.9-12.6) secs INR (0.8-1.2) Sodium (135-145) mmol/L Potassium (3.5-4.5) mmol/L Chloride (101-111) mmol/L Carbon Dioxide (21-32) mmol/L Anion Gap (6-13) BUN (6-20) mg/dL Creatinine (0.6-1.3) mg/dL Estimated GFR (MDRD) (>89) Glucose (74-104) mg/dL POC Whole Bld Glucose 84 81 (70 - 100) mg/dL Calcium (8.5-10.3) mg/dL B-Natriuretic Peptide (5-100) pg/mL 11/11/23 11/11/23 11/11/23 Range/Units 11:25 08:11 07:53 WBC (4.8-10.8) x10^3/uL RBC (4.70-6.10) 10^6/uL Hgb (14.0-18.0) g/dL Hct (42.0-52.0) % MCV (80.0-94.0) fL MCH (27.0-31.0) pg MCHC (32.0-36.0) g/dL RDW (12.0-15.0) % Plt Count (130-450) 10^3/uL MPV (7.4-11.4) fL Neut # (Auto) (1.5-6.6) 10^3/uL Lymph # (Auto) (1.5-3.5) 10^3/uL Rosebud # (Auto) (0.0-1.0) 10^3/uL Eos # (Auto) (0.0-0.7) 10^3/uL Baso # (Auto) (0.0-0.1) 10^3/uL Absolute Nucleated RBC x10^3/uL Total Counted Band Neuts % (Manual) (0 - 10) % Abnorm Lymph % (Manual) % Nucleated RBC % /100WBC Neutrophils # (Manual) (1.5-6.6) 10^3/uL Lymphocytes # (Manual) (1.5-3.5) 10^3/uL Monocytes # (Manual) (0.0-1.0) 10^3/uL Eosinophils # (Manual) (0-0.7) 10^3/uL Basophils # (Manual) (0-0.1) 10^3/uL Differential Comment Manual Slide Review WBC Morphology (NORMAL) Platelet Estimate (NORMAL) Platelet Morphology (NORMAL) RBC Morph Micro Appear (NORMAL) PT 87.8 H (9.9-12.6) secs INR 9.0 H* (0.8-1.2) Sodium (135-145) mmol/L Potassium (3.5-4.5) mmol/L Chloride (101-111) mmol/L Carbon Dioxide (21-32) mmol/L Anion Gap (6-13) BUN (6-20) mg/dL Creatinine (0.6-1.3) mg/dL Estimated GFR (MDRD) (>89) Glucose (74-104) mg/dL POC Whole Bld Glucose 102 H 96 (70 - 100) mg/dL Calcium (8.5-10.3) mg/dL B-Natriuretic Peptide (5-100) pg/mL 11/11/23 11/11/23 Range/Units 05:01 05:01 WBC 15.6 H (4.8-10.8) x10^3/uL RBC 3.46 L (4.70-6.10) 10^6/uL Hgb 10.4 L (14.0-18.0) g/dL Hct 33.3 L (42.0-52.0) % MCV 96.2 H (80.0-94.0) fL MCH 30.1 (27.0-31.0) pg MCHC 31.2 L (32.0-36.0) g/dL RDW 13.7 (12.0-15.0) % Plt Count 240 (130-450) 10^3/uL MPV 11.3 (7.4-11.4) fL Neut # (Auto) 11.3 H (1.5-6.6) 10^3/uL Lymph # (Auto) 1.1 L (1.5-3.5) 10^3/uL Rosebud # (Auto) 0.9 (0.0-1.0) 10^3/uL Eos # (Auto) 2.1 H (0.0-0.7) 10^3/uL Baso # (Auto) 0.0 (0.0-0.1) 10^3/uL Absolute Nucleated RBC 0.00 x10^3/uL Total Counted Band Neuts % (Manual) (0 - 10) % Abnorm Lymph % (Manual) % Nucleated RBC % 0.0 /100WBC Neutrophils # (Manual) (1.5-6.6) 10^3/uL Lymphocytes # (Manual) (1.5-3.5) 10^3/uL Monocytes # (Manual) (0.0-1.0) 10^3/uL Eosinophils # (Manual) (0-0.7) 10^3/uL Basophils # (Manual) (0-0.1) 10^3/uL Differential Comment Manual Slide Review Indicated WBC Morphology NORMAL APPEARANCE (NORMAL) Platelet Estimate NORMAL (130-450,000) (NORMAL) Platelet Morphology NORMAL APPEARANCE (NORMAL) RBC Morph Micro Appear NORMAL APPEARANCE (NORMAL) PT (9.9-12.6) secs INR (0.8-1.2) Sodium (135-145) mmol/L Potassium (3.5-4.5) mmol/L Chloride (101-111) mmol/L Carbon Dioxide (21-32) mmol/L Anion Gap (6-13) BUN (6-20) mg/dL Creatinine (0.6-1.3) mg/dL Estimated GFR (MDRD) (>89) Glucose (74-104) mg/dL POC Whole Bld Glucose (70 - 100) mg/dL Calcium (8.5-10.3) mg/dL B-Natriuretic Peptide 182 H (5-100) pg/mL - Diagnostic Imaging Diagnostic Imaging Results: positive: Final report reviewed Diagnostic Imaging Comments: CXR (11/09/23): No acute cardiopulmonary process. Asymmetric persistent alveolar infiltration, left greater than right. No definite improvement or worsening. CT Left Lower Extremity (11/09/23): Marked soft tissue thickening involving the posterior ankle region and calcaneal tendon consistent with cellulitis. Ill-defined hypodense density within the calcaneal tendon that may represent phlegmonous changes, however no discrete rim-enhancing or drainable fluid collection is identified. No acute osseous a bnormality. 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 He follows with Dr. Mary Freeman and infectious disease and has been receiving empiric meropenem and daptomycin as an outpatient. He was sent to the emergency department originally as his outpatient labs showed a white count increased up to 18. -CT scan on presentation showed phlegmonous changes around the calcaneal tendon but no drainable abscess. -Continue IV meropenem 1 g every 8 hours and IV doxycycline 100 mg twice daily per ID recommendations. -The patient's was initially hoping for vascular surgery consultation to evaluate for amputation however given his multiple medical conditions, deconditioning and acute on chronic respiratory failure, he is not a candidate for surgical intervention at this time thus the wants to enroll the patient in hospice. -Plans are in place to initiate hospice at home tomorrow. (2) Acute respiratory failure with hypoxia Impression: Prior to his hospitalization he was residing at a local SNF and had been requiring up to 2 L of oxygen intermittently, sometimes up to 4. There were concerns as an outpatient that he may have eosinophilic pneumonia/pneumonitis versus other interstitial pneumonitis. His acute worsening may have been due to pulmonary edema/CHF though could be worsening of possible interstitial pneumonitis of some form. -No evidence for hemoptysis during this hospitalization. -Currently requiring 10 to 12 L of oxygen to maintain saturations greater than 90%. -Has been on IV Lasix 40 mg twice daily since admission without significant change. -Hospice at home can handle up to 12 L of oxygen and patient's is interested in pursuing hospice at home tomorrow. (3) Supratherapeutic INR Impression: His INR was checked after admission and was noted to be elevated at 9.0. He did not have any evidence of bleeding or hemoptysis. -Received 2.5 mg of vitamin K orally. -INR appropriately decreased to 1.8 today. Can resume Coumadin for now. (4) A-fib Impression: Mostly rate controlled at this time however he does have occasional episodes where he is tachycardic. -Continue metoprolol 50 mg twice daily. -Resumed Coumadin as noted above. -Follow daily INR. Qualifiers: Atrial fibrillation type: longstanding persistent Qualified Code(s): I48.11 - Longstanding persistent atrial fibrillation (5) Diabetes Impression: Continue sliding scale insulin at this time. Qualifiers: Diabetes mellitus type: type 2 Diabetes mellitus halfway insulin use: without halfway use Diabetes mellitus complication status: with circulatory complication Diabetes mellitus complication detail: with peripheral angiopathy without gangrene Qualified Code(s): E11.51 - Type 2 diabetes mellitus with diabetic peripheral angiopathy without gangrene (6) Chronic dementia Impression: He has been labeled as having vascular dementia in the past, though the patient's is not certain of that diagnosis. -His mentation has appeared to be at his recent baseline during this hospitalization, which is disorientation to date, location and situation. -Continue home Aricept and Namenda. (7) PVD (peripheral vascular disease) Impression: He follows with a vascular surgeon in [place] and had an appointment scheduled for today 11/12/2023. This was canceled due to his acute ho spitalization. The patient's initially was planning on having him evaluated for left-sided lower extremity amputation. -Given his current deconditioning, acute on chronic hypoxic respiratory failure and other various medical issues, he is not a good surgical candidate and would have a high chance of not surviving a hospitalization for amputation. -This was conveyed to the patient's . Due to this and his continued decline, the patient's is opting for hospice at home. -Planning on discharge home with hospice tomorrow if possible. -Can continue clopidogrel for the time being. (8) Hypokalemia Impression: Continue daily scheduled oral potassium. Repeat CHEM panel in the morning.
[2023-11-12] MEDS: METOPROLOL TARTRATE 50 MG TABLET PO SCH (08:30)
[2023-11-12] MEDS: POTASSIUM CHLORIDE 20 MEQ TABLET PO SCH (08:30)
[2023-11-12] MEDS: WARFARIN 5 MG TABLET PO SCH (14:18)
[2023-11-13 05:30] LABS: BASOPHILS % (AUTO) 0.4 %; EOSINOPHILS % (AUTO) 14.4 %; MEAN CORPUSCULAR HEMOGLOBIN 29.6 pg (27.0-31.0); MEAN CORPUSCULAR HGB CONC 32.3 g/dL (32.0-36.0); MEAN CORPUSCULAR VOLUME 91.7 fL (80.0-94.0); MEAN PLATELET VOLUME 9.8 fL (7.4-11.4); MONOCYTES % (AUTO) 6.3 %; NEUTROPHILS % (AUTO) 69.9 %; PLT - PLATELET COUNT 280 10^3/uL (130-450); RED BLOOD COUNT 3.38 10^6/uL (4.70-6.10); RED CELL DISTRIBUTION WIDTH 13.5 % (12.0-15.0)
[2023-11-13 05:47] LABS: CREATININE 0.9 mg/dL (0.6-1.3); MAGNESIUM 1.5 mg/dL (1.7-2.3); POTASSIUM 3.5 mmol/L (3.5-4.5)
[2023-11-13 06:19] LABS: DIFFERENTIAL COMMENT MANUA; PLATELET ESTIMATE, MANUAL NORMAL (130-450,000) (NORMAL); RBC MORPHOLOGY (MULTIPLE) NORMAL APPEARANCE (NORMAL)
[2023-11-13] MEDS ORDERED: SODIUM CHLORIDE 0.9% MINIBAG 100 ML IV ONE (09:27)
--- NOTE | 2023-11-13 13:07 | Discharge Plan ---
Discharge Plan Problem Reviewed?: Yes Disposition: 50 Hospice/Home DC/Xfer Condition: Poor Diet: Regular Activity Restrictions: Activity as Tolerated Shower Restrictions: No Driving Restrictions: Yes (no driving) Assistance Devices: Wheelchair Health Concerns: You are a gentleman who has chronic lack of blood flow to your legs. You have already lost part of 1 leg because of it. On your left leg you have developed ulcers because of skin loss. And the ulcers become infected. You are followed by infectious disease at [facility]. You had routine blood work done by this physician and your blood work showed an elevated white cell count and she asked you to come to the emergency room. When you came to the emergency room you were confused, had a very low oxygen level. You were started on the antibiotics recommended by the infectious disease specialist. Your infection has gotten slightly better. The infection was in your legs. However you require more and more oxygen. You have a mild, nonproductive cough. You and your family were hoping that you would have a vascular intervention for your left leg. However vascular surgery is probably not an option for you because of your poor overall status. Because of other problems such as low oxygen, your heart, and memory loss, your family has decided to transition you to hospice. Plan of Treatment: I have stopped some of your medications. When you go home you will no longer be on Namenda or Aricept. I am also stopping your vitamin D and your cholesterol pill. Hospice will have medications to help with comfort. They will have nausea, pain, fever medicine. you will go home today, and hospice will enter you into their service tomorrow. Their medical affairs manager will become your new primary care provider Assessment: patient has memory loss and is not unable to participate in care planning. Decisions made by spouse. No Smoking: If you smoke, Please STOP! Call for help.
[2023-11-13 15:41] VITALS: BP 139/63; O2SAT 88
--- NOTE | 2023-11-13 18:33 | DISCHARGE SUMMARY ---
"Discharge Summary Admit Date: 11/10/23 Discharge Date: 11/13/23 Discharging Provider: Loreta Fields MD Primary Care Provider: Mary Will MD Code Status: Do Not Attempt Resuscitation Condition at Discharge: Poor Discharge Disposition: 50 Hospice/Home DC/Xfer - DIAGNOSES Discharge Diagnoses with Status of Each Condition: 1. Wound infection 2. Peripheral vascular disease 3. Vascular dementia 4. Acute hypoxic respiratory failure 5. Supratherapeutic INR 6. Chronic atrial fibrillation 7. Type 2 diabetes mellitus - HPI History of Present Illness: Mr. Metzger is a 78 yo gentleman with a history of CAD, PVD, right BKA, LLE chronic wound. Patient is followed by ID physician Dr. Mary Freeman. History was obtained from reviewing patient records and ED physician Dr. Fuentes. Patient was unable to provide history due to respiratory status. who was present earlier was not at bedside during my evaluation. Per reports, patient had routine labwork obtained by his primary ID physician. He was advised to come to the ED for adjustments to his antibiotic regimen as he had an increase of his WBC from 14-19. He also had an elevated ESR. He was afebrile. He also noted to be slightly confused. He has chronic respiratory failure and was hypoxic on his baseline 2L. Chest xray was negative for infiltrates. Family denied cough or recent sick contacts. He did not have chest pain. Patient was started on Doxycycline and Merrem per ID recommendations. Hospitalist service was asked to admit for monitoring. I performed this visit utilizing real-time Telehealth equipment, including the use of live video connection between my home location and the patient's hospital room located at [facility]. - Past Medical History Cardiovascular: reports: Congestive heart failure, Hypertension, High cholesterol, Coronary artery disease, Peripheral Vascular Disease, [place], Atrial fibrillation Respiratory: reports: Shortness of breath, Other Neuro: reports: Dementia Endocrine/Autoimmune: reports: Type 2 diabetes GI: reports: None, Other : reports: Benign prostate hypertrophy, Nocturia HEENT: reports: None Psych: reports: Anxiety Musculoskeletal: reports: Fatigue, Other Derm: reports: Other MRSA Hx?: Yes - Past Surgical History General: reports: Colonoscopy Ortho: reports: Amputation, Other Cardiovascular: reports: Pacemaker, AICD - CONSULTS | PROCEDURES Procedures: Chest x-ray had asymmetric persistent alveolar infiltration, left greater than right. No improvement or worsening from a chest x-ray [address] Lower [address] with marked soft tissue thickening and increased density around the posterior ankle region. It involves the calcaneal tendon. The calcaneal tendon is thickened with internal ill-defined hypodensity measuring 6 x 6 cm. 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 He is followed by infectious disease at [facility] and has been receiving empiric meropenem and daptomycin in the outpatient setting for infection of this ischemic ulcer. He was sent to the emergency department because his white cell count was up to 18,000. CT scan showed phlegmonous changes around the calcaneal tendon but no drainable abscess. He was continued on antibiotics and those were changed per ID. The is hoping for vascular surgery consultation to evaluate for amputation. However, given his multiple medical conditions, deconditioning and acute on chronic respiratory failure, he is not a candidate for surgical intervention at this time. As such the wanted him to transition to hospice care. Prior to his hospitalization he was residing at a SNF and had been requiring 2 L of nasal cannula intermittently. Sometimes up to 4. Differential diagnosis included eosinophilic pneumonia or pneumonitis versus other interstitial pneumonitis. Also could have been from pulmonary edema/CHF. During his stay, oxygen requirement increased to 12 L of oxygen to maintain his O2 sat at 90%. Lasix 40 mg IV push twice daily did not result in any significant change. Empiric antibiotics resulted in no change. With the transition to hospice they are able to handle up to 12 L of oxygen at home. INR was supratherapeutic on admission. He received 2.5 mg of vitamin K orally. INR came down to 1.8. Coumadin was discontinued at discharge as he transitions to hospitalist 8. Chronic A-fib was relatively well-controlled and he only had occasional episodes where he was tachycardic. His rate was controlled on her metoprolol 50 mg twice a day. Diabetes was managed with sliding scale insulin. With discharge he is not to resume metformin. Chronic dementia is a diagnosis he carries. He is disoriented to date, location and situation. With transition to hospice I am stopping Aricept and Namenda. He is followed by a vascular surgeon in [place]. Had an appointment on November 11. But canceled because of his hospitalization. As stated above, given his current deconditioning and respiratory status, he is not a good surgical candidate. This was conveyed to the patient as well. Due to this and is continued decline the patient's has decided to transition to hospice. The patient was discharged in stable condition with a poor prognosis. Temperature is 36.6, heart rate 77, blood pressure 139/63. Respirations 18. 88% saturated on Oxymizer of 8 L/min. He is 6 feet 2 inches tall, 80.5 kg. He is a gaunt, disoriented elderly gentleman. Thoughtfully picking at the blankets. Left leg from the knee down is pale and cool but not acutely ischemic. He had the ulcer over the Achilles shows tendon. Minimal redness and drainage. Coarse upper airway sounds. No tachypnea. Irregular rate and rhythm. And abdomen with hypoactive bowel sounds. Greater than 30 minutes was spent coordinating discharge This document was made in part using voice recognition software. While efforts are made to proofread this document, sound alike and grammatical errors may occur. - ALLERGIES Allergies/Adverse Reactions: Allergies Allergy/AdvReac Type Severity Reaction Status Date / Time levofloxacin Allergy Unknown Verified 11/04/23 18:48 - MEDICATIONS Home Medications: Ambulatory Orders Medication Instructions Recorded Confirmed Losartan [Cozaar] 75 mg PO DAILY 04/03/17 11/09/23 Clopidogrel Bisulfate [Plavix] 75 mg PO DAILY 08/11/22 11/09/23 Metoprolol Tartrate [Lopressor] 50 mg PO BID 10/06/23 11/09/23 Sertraline [Zoloft] 50 mg PO DAILY 10/06/23 11/09/23 Tamsulosin [Flomax] 0.4 mg PO QPM 10/06/23 11/09/23 buPROPion HCL [Bupropion Xl] 150 mg PO DAILY 10/06/23 11/09/23 Acetaminophen [Tylenol] 650 mg PO Q4HR PRN 11/09/23 11/09/23 Spironolactone [Aldactone] 25 mg PO DAILY 11/10/23 11/10/23 busPIRone [Buspar] 5 mg PO BID 11/10/23 11/10/23 traMADol [Ultram] 25 mg PO Q6HR PRN 11/10/23 11/10/23 QUEtiapine [SEROquel] 25 mg PO QPM tab 11/13/23 Spironolactone [Aldactone] 25 mg PO DAILY tab 11/13/23 - LABS Result Diagrams: 11/13/23 04:37 11/13/23 04:37 - SEPSIS Current Stage of Sepsis: Ruled out"
== END 2023-11-13 15:48 | disposition hospice, home (50) | DRG 637 ==
LOC: ED 15:16 → MS2 11-10 00:36 → OBSVTOIN 11-11 10:27
PROVIDERS: ADMIT Hospitalist; ATTEND Specialist
DX: E11.621 Type 2 diabetes mellitus with foot ulcer (principal); J96.21 Acute and chronic respiratory failure with hypoxia; I48.20 Chronic atrial fibrillation, unspecified; L97.429 Non-pressure chronic ulcer of left heel and midfoot with unspecified severity; F01.54 Vascular dementia, unspecified severity, with anxiety; L02.416 Cutaneous abscess of left lower limb; E11.51 Type 2 diabetes mellitus with diabetic peripheral angiopathy without gangrene; I11.0 Hypertensive heart disease with heart failure; I48.11 Longstanding persistent atrial fibrillation; F03.90 Unspecified dementia, unspecified severity, without behavioral disturbance, psychotic disturbance, mood disturbance, and anxiety; I50.9 Heart failure, unspecified; E78.00 Pure hypercholesterolemia, unspecified; I25.10 Atherosclerotic heart disease of native coronary artery without angina pectoris; I25.2 Old myocardial infarction; N40.1 Benign prostatic hyperplasia with lower urinary tract symptoms; R35.1 Nocturia; E87.6 Hypokalemia; Z51.5 Encounter for palliative care; Z66 Do not resuscitate; Z79.01 Long term (current) use of anticoagulants; Z79.899 Other long term (current) drug therapy; Z82.49 Family history of ischemic heart disease and other diseases of the circulatory system; Z89.511 Acquired absence of right leg below knee; Z95.810 Presence of automatic (implantable) cardiac defibrillator
CPT/HCPCS: 36415; 71046; 73700; 80048; 80053; 81001; 82947; 83690; 83735; 83880; 84145; 85025; 85610; 86140; 87040; 96365; 96366; 96367; 96375; 96376; 99285; A9270; G0378; J2185; 81003; 87086

== ENCOUNTER 2023-11-13 15:46 | Outpatient (CLI) | payer MEDICARE, OTHER | END 2023-11-13 23:59 | disposition hospice, home (50) | LOC: EMS 15:46 | PROVIDERS: ATTEND Specialist | DX: Z51.5 Encounter for palliative care (principal); Z99.81 Dependence on supplemental oxygen; F03.90 Unspecified dementia, unspecified severity, without behavioral disturbance, psychotic disturbance, mood disturbance, and anxiety; I50.9 Heart failure, unspecified; L08.9 Local infection of the skin and subcutaneous tissue, unspecified | CPT/HCPCS: A0425; A0428 ==